=== PATIENT | male | born 1960 | race Caucasian/White ===

== ENCOUNTER 2020-07-02 02:01 | Outpatient (CLI) | payer BC, SELFPAY ==
[2020-07-02 16:34] LABS: SARS-CoV-2 RNA PCR Positive
== END 2020-07-02 02:02 | disposition home or self-care (01) ==
LOC: ANHCOVIDDT 02:01
PROVIDERS: PCP Internal Medicine; Visit Provider Internal Medicine Gastroenterology
DX: U07.1 COVID-19 (principal)
CPT/HCPCS: 87635; C9803; U0003

== ENCOUNTER 2021-06-18 07:37 | Outpatient (CLI) | payer BC, SELFPAY ==
--- NOTE | ~2021-06-18 | CT_ITS ---
EXAMINATION: CT abdomen pelvis wo con DATE: 06/18/2021 08:04 INDICATION: Unspecified abdominal hernia without obstruction TECHNIQUE: Computed tomography (CT) of the abdomen and pelvis was performed without intravenous contr ast. The dose-length product (DLP) was 1499.67 mGy-cm. Automated exposure control and iterative recon struction technique were employed. COMPARISON: 07/30/2016 FINDINGS: The lung bases are clear. The heart size is normal. The liver, spleen, pancreas, gallbladde r, and adrenal glands are normal. The kidneys are unremarkable. There is a midline epigastric hernia which now contains a short segment of the nonobstructed transverse colon. There are additional smalle r fat-containing supraumbilical hernias which are not significantly changed in size. No pathologicall y enlarged abdominal or pelvic lymph nodes are identified. There is no free intraperitoneal gas or ev idence of bowel obstruction. Colonic diverticulosis is present without evidence of diverticulitis. Th ere is moderate lumbar spondylosis. IMPRESSION: 1. Midline epigastric hernia containing a short segment of the nonobstructed transverse colon. Multip le additional smaller supraumbilical ventral hernias containing fat. Reviewed, dictated and finalized at location B. IMPRESSION: 1. Midline epigastric hernia containing a short segment of the nonobstructed tr ansverse colon. Multiple additional smaller supraumbilical ventral hernias cont aining fat.
== END 2021-06-18 07:38 | disposition home or self-care (01) ==
PROVIDERS: PCP Internal Medicine; Visit Provider Internal Medicine
DX: K46.9 Unspecified abdominal hernia without obstruction or gangrene (principal); K43.9 Ventral hernia without obstruction or gangrene; M47.816 Spondylosis without myelopathy or radiculopathy, lumbar region; K57.30 Diverticulosis of large intestine without perforation or abscess without bleeding
CPT/HCPCS: 74176

== ENCOUNTER 2021-06-26 01:45 | Day surgery (SDC) | payer BC, SELFPAY ==
[2021-06-13 11:05] VITALS: BMI 38.1
--- NOTE | 2021-06-25 12:07 | WPDANESEPPF ---
Anes - Initial Pre Proc Eval Procedure: Operation Date: 06/26/21 07:30 Proposed Procedures p Screening Colonoscopy - Fernando Shoemaker MD Date/Time: 06/25/21 12:07 Surgeon: Fernando Shoemaker MD Pre Op Diagnosis: family hx of colon ca Patient Data Age: 61 Gender: M Height: 1.8 m Weight: 124 kg Allergies Allergy/AdvReac Type Severity Reaction Status Date / Time morphine Allergy Severe Hallucinati Verified 06/26/21 06:16 ng Home Medications Medication Instructions Recorded Confirmed Type phentermine 30 mg capsule 30 mg PO QAM #30 cap 05/21/21 06/26/21 Rx telmisartan 80 1 tablet PO DAILY #90 tablet 06/04/21 06/26/21 Rx mg-hydrochlorothiazide 12.5 mg tablet Patient hx anesthesia problems: none Family hx anesthesia problems: none PMFSH Past Medical History Medical History Abdominal hernia without obstruction or gangrene Essential (primary) hypertension Family history of colon cancer Gangrene Lower extremity surgery planned Morbid obesity with BMI of 40.0-44.9, adult Family History Family History Father Family history of cardiovascular disease Carcinoma of colon Diabetes mellitus Hypertension Mother Cancer Sibling Hypertension Social History Social History Smoking status: Never smoker Alcohol intake: current Drinks per week: 2 Substance use: never Substance use type: does not use Living arrangements: with family Spiritual care concerns: No Anes - Eval Final PreProcedure Day of Procedure 06/25/21 12:07 Patient weight: obese Heart: regular rate and rhythm Lungs: clear to auscultation and normal air movement Airway: Mallampati scale class III Neurological: alert and oriented Last oral intake: >/= 8 hours ASA classification: III Emergent: no Anesthetic plan: proceed Anesthesia type and monitoring: general GIVS and standard monitoring Informed Consent: The patient's anesthetic plan and its attendant risks and benefits were discussed with the patient/family/POA. Questions were solicited and answers provided to the satisfaction of the patient/family/POA.
--- NOTE | 2021-06-25 15:38 | PM.HPGS ---
History of Present Illness History of Present Illness Consent: Risks, benefits, and alternatives have been discussed and questions answered. Patient agrees to proceed with procedure. Chief complaint: family hx of colon ca Narrative: Pierre Fiore is a 61 year old male referred for colon cancer screening. He has a family history of colon cancer Review of Systems Review of Systems: All systems reviewed & are unremarkable except as noted in HPI and below PMFSH Past Medical History Medical History Abdominal hernia without obstruction or gangrene Essential (primary) hypertension Family history of colon cancer Gangrene Lower extremity surgery planned Morbid obesity with BMI of 40.0-44.9, adult Family History Family History Father Family history of cardiovascular disease Carcinoma of colon Diabetes mellitus Hypertension Mother Cancer Sibling Hypertension Social History Social History Smoking status: Never smoker Alcohol intake: current Drinks per week: 2 Substance use: never Substance use type: does not use Living arrangements: with family Spiritual care concerns: No Meds Home Medications and Allergies Home Medications Medication Instructions Recorded Confirmed Type phentermine 30 mg capsule 30 mg PO QAM #30 cap 05/21/21 06/26/21 Rx telmisartan 80 1 tablet PO DAILY #90 tablet 06/04/21 06/26/21 Rx mg-hydrochlorothiazide 12.5 mg tablet Allergies Allergy/AdvReac Type Severity Reaction Status Date / Time morphine Allergy Severe Hallucinati Verified 06/26/21 06:16 ng Exam Resp: Auscultation: clear to auscultation bilaterally Cardio: Rate: regular rate Rhythm: regular rhythm GI: GI Palp: Yes Soft to palpation and No Tenderness to palpation present (GI) Assessment and Plan Assessment and plan (1) Colon cancer screening: Code(s): Z12.11 - Encounter for screening for malignant neoplasm of colon Status: Acute Assessment and Plan: Colonoscopy with possible biopsy or polypectomy or cautery or injection of substances.
[2021-06-26 06:18] VITALS: BP 137/87; PULSE 69; RESP 20; TEMP 35.9; O2SAT 95
[2021-06-26] MEDS: LACTATED RINGERS 1,000 ML 150 ML IV CONT (06:21)
[2021-06-26 07:23] VITALS: BP 124/70; PULSE 69; RESP 17; O2SAT 97
[2021-06-26 07:33] VITALS: BP 107/73; PULSE 75; RESP 25; O2SAT 97
[2021-06-26 07:43] VITALS: BP 135/88; PULSE 68; RESP 16; O2SAT 96
== END 2021-06-26 07:52 | disposition home or self-care (01) ==
PROVIDERS: PCP Internal Medicine; Visit Provider Internal Medicine Gastroenterology
PROC: 0DJD8ZZ Inspection of Lower Intestinal Tract, Via Natural or Artificial Opening Endoscopic (ICD-10-PCS; CPT 45378; principal; 2021-06-26 07:30)
DX: Z12.11 Encounter for screening for malignant neoplasm of colon (principal); K57.30 Diverticulosis of large intestine without perforation or abscess without bleeding; K43.6 Other and unspecified ventral hernia with obstruction, without gangrene; Z80.0 Family history of malignant neoplasm of digestive organs; I10 Essential (primary) hypertension; E66.9 Obesity, unspecified; Z68.38 Body mass index [BMI] 38.0-38.9, adult
CPT/HCPCS: 45378; J2704; J7120

== ENCOUNTER 2022-02-03 07:06 | Observation (INO) | payer BC, SELFPAY ==
[2022-02-03] VITALS (18 sets, daily range): BP systolic 127–145; BP diastolic 89–120; PULSE 68–126; RESP 18–27; TEMP 36.1–36.7; O2SAT 93–99; BMI 39.2
--- NOTE | ~2022-02-03 | XR_ITS ---
EXAMINATION: XR chest 2V DATE: 02/03/2022 08:52 INDICATION: Shortness of breath. TECHNIQUE: Frontal and lateral views of the chest were obtained. COMPARISON: Chest single view 07/09/2019, chest CT 02/03/2022 FINDINGS: There are small pleural effusions. Anusha B-lines are noted, consistent with mild pulmonary edema. No pneumothorax. The heart size is normal. There is an old healed left rib fracture. IMPRESSION: 1. Mild pulmonary edema. 2. Small pleural effusions. Reviewed, dictated and finalized at location A.
--- NOTE | ~2022-02-03 | CT_ITS ---
EXAMINATION: CTA chest PE protocol DATE: 02/03/2022 08:45 INDICATION: Shortness of breath, cough. New atrial fibrillation. TECHNIQUE: Computed tomography angiography (CTA) of the chest was performed with 100 mL Omnipaque-350 intravenous contrast timed to evaluate the pulmonary arteries. Coronal maximum intensity projection 3D-reconstructions were created by the technologist. Automated exposure control and iterative reconst ruction technique were employed. Exam dose: 1045.93 mGy-cm total exam DLP. COMPARISON: 07/09/2019 portable AP chest 2 view chest is not available at this time. FINDINGS: There is diagnostic contrast enhancement of the pulmonary arteries and no evidence of pulmo nary embolism. Cardiomegaly. No pericardial effusion. There is mild prominence of the fissure suggesting subpleural edema. There is prominence of some pulm onary interlobular septae peripherally mild bilateral pulmonary infiltrates suggesting pulmonary kul[place] a. Nonspecific mild aortopulmonary window and bilateral hilar and subcarinal lymph node prominence. Small bilateral pleural effusions. Normal morphology of the adrenal glands. Included upper abdominal structures are unremarkable. Mild bilateral gynecomastia. Very small sliding hiatal hernia Prominent degenerative disc disease in the lower cervical and upper thoracic spine. No suspicious ost eolytic or osteoblastic lesions. IMPRESSION: No evidence of pulmonary embolus Cardiomegaly and congestive changes, small pleural effusions, suggesting congestive heart failure, pu lmonary edema Mild mediastinal and hilar lymph node prominence, possibly reactive Reviewed, dictated and finalized at Location A. Reviewed, dictated and finalized at location A. IMPRESSION: No evidence of pulmonary embolus Cardiomegaly and congestive changes, small pleural effusions, suggesting conges tive heart failure, pulmonary edema Mild mediastinal and hilar lymph node prominence, possibly reactive
--- NOTE | 2022-02-03 07:22 | ECG_ITS ---
Measurements Intervals [place] Rate: 90 P: [place]: 0 QRS: 9 QRSD: 105 T: 17 QT: 381 QTc: 468 Interpretive Statements ATRIAL FIBRILLATION NONSPECIFIC T-WAVE ABNORMALITY ABNORMAL RHYTHM ECG NO PREVIOUS ECG AVAILABLE FOR COMPARISON Electronically Signed On 02-03-2022 16:19:39 CDT by Derek Green M.D.
[2022-02-03 07:36] LABS: Basophils Absolute Auto 0.1 K/mm3 (0.0-0.1); Basophils Percent Auto 0.8 % (0.2-1.2); Eosinophils Absolute Auto 0.4 K/mm3 (0-0.3); Eosinophils Percent Auto 3.5 % (0-4.4); Hematocrit 39.9 % (42.0-52.0); Hemoglobin 13.2 g/dL (14.0-18.0); Immature Granulocyte Absolute 0.04 K/mm3 (0.00-0.031); Immature Granulocyte Percent A 0.4 % (0-0.5); Lymphocytes Absolute Auto 1.52 K/mm3 (0.9-3.2); Lymphocytes Percent Auto 15.3 % (18.3-44.2); Mean Corpuscular HGB Conc 33.1 g/dl (32-36); Mean Corpuscular Volume 93.7 fl (80-100); Mean Platelet Volume 9.8 fl (7.4-10.4); Monocytes Absolute Auto 0.9 K/mm3 (0.1-0.6); Monocytes Percent Auto 8.8 % (2.6-8.5); Neutrophils Absolute Auto 7.1 K/mm3 (1.3-6.7); Neutrophils Percent Auto 71.2 % (45.5-73.1); Platelet Count Result 220 k/mm3 (150-375); Red Blood Count 4.26 M/mm3 (4.6-6.20); Red Cell Distribution Width 13.2 % (11.5-14.5); White Blood Count 9.9 K/mm3 (4.5-10.0)
--- NOTE | 2022-02-03 07:38 | ED.SOB ---
HPI - SOB/Dyspnea General Chief Complaint: Shortness of Breath/Dyspnea Stated Complaint: shortness of breath Time Seen by Provider: 02/03/22 07:37 Source: patient Mode of arrival: ambulatory Limitations: no limitations History of Present Illness HPI Narrative: The patient is a 61-year-old male with a history of hypertension, atrial flutter, hyperlipidemia, presenting to the emergency department for evaluation of shortness of breath. Patient states that he has felt short of breath over the past 72 hours. Patient states he has had some midsternal chest pain that is worse with deep inspiration. Patient denies leg swelling or calf pain. Denies any unilateral redness or swelling. He denies pleuritic pain. Patient denies wheezing or history of smoking. Chest pain does not radiate to the back or shoulders, jaw, neck. He denies ripping or tearing sensation to the flanks. Patient states that he has been compliant with his medications since discharge from the hospital and has a sleep study scheduled at this facility for February 12 due to a presumed diagnosis of obstructive sleep apnea. Patient states his dyspnea is worse with exertion. He reports cough with small amount of sputum production, denies hemoptysis. Per chart review with his primary care provider, pt was in [facility] from 11/18/2021- 11/21/2021. He was discharged with diagnosis of Irregular heart beat. He was referred to [facility] and has an upcoming appointment 01/07/2022. Patient has been on a daily aspirin. Related Data Home Medications Medication Instructions Recorded Confirmed aspirin 81 mg tablet,delayed 81 mg PO DAILY 12/23/21 12/23/21 release apixaban 5 mg PO BID 02/03/22 cetirizine 10 mg PO DAILY PRN 02/03/22 diphenhydramine HCl [Benadryl] 25 mg PO TID PRN 02/03/22 epinephrine 0.3 mg IM ONCE 02/03/22 famotidine 20 mg PO BID 02/03/22 metoprolol tartrate 100 mg PO DAILY 02/03/22 Allergies Allergy/AdvReac Type Severity Reaction Status Date / Time morphine Allergy Severe Hallucinati Verified 02/03/22 07:17 ng Review of Systems Review of Systems: CONSTITUTIONAL: Denies fever, chills, or sweats. EYES: Denies visual changes, redness, or discharge. ENT: Denies rhinorrhea, congestion, sore throat, or otalgia. CARDIOVASCULAR: Denies chest pain, palpitations, or edema. RESPIRATORY: Reports cough and shortness of breath GASTROINTESTINAL: Denies abdominal pain, nausea, vomiting, or diarrhea. GENITOURINARY: Denies dysuria or hematuria. SKIN: Denies rash or itching. MUSCULOSKELETAL: Denies back pain, joint pain, or myalgia. NEUROLOGIC: Denies headache, numbness, or weakness. [facility] Past Medical History Medical History Abdominal hernia without obstruction or gangrene Atrial flutter Essential (primary) hypertension Family history of colon cancer Gangrene Lower extremity surgery planned Morbid obesity with BMI of 40.0-44.9, adult Family History Family History Father Family history of cardiovascular disease Carcinoma of colon Diabetes mellitus Hypertension Mother Cancer Sibling Hypertension Social History Social History Smoking status: Never smoker Alcohol intake: current Drinks per week: 2 Substance use: never Substance use type: does not use Spiritual care concerns: No Exam Narrative: GENERAL: Awake, alert, conversant HEAD: Normocephalic, atraumatic. EYES: PERRLA and EOMI. ENT: Nares clear, no rhinorrhea or epistaxis. Mucous membranes moist. NECK: Supple. CHEST: Mild tachypnea, faint crackles bilaterally lower lobes, no expiratory wheezing, no severe respiratory distress HEART: Tachycardic rate, irregular rhythm, rate controlled ABDOMEN:Non distended, non tender EXTREMITIES: Normal range of motion. No edema. SKIN: Warm, dry, no rash. NEURO:No focal deficit
[2022-02-03 07:46] LABS: Alanine Aminotransferase 38 U/L (4-50); Albumin Level 3.9 g/dL (3.5-5.1); Alkaline Phosphatase 79 U/L (38-126); Anion Gap 8 mmol/L (8-16); Aspartate Amino Transferase 37 U/L (17-59); Bilirubin,Total 0.7 mg/dL (0.2-1.3); Blood Urea Nitrogen 25 mg/dL (9-20); Calcium 8.4 mg/dL (8.4-10.2); Carbon Dioxide 26 mmol/L (22-30); Chloride 102 mmol/L (98-107); Estimated CRCL calculation 80 ml/min; Estimated Glomerular Filt Rate > 60; Glucose 130 mg/dL (65-110); Potassium 4.6 mmol/L (3.4-5.0); Sodium 136 mmol/L (137-145)
[2022-02-03 07:52] LABS: Alveolar/Arterial O2 Gradient 26.9 mmHg; Base Excess ABG 1.4 mEq/l (+/-2.0); Carboxyhemoglobin 0.3 % THb (0-2.0); Fractional Inspired Oxygen 21 %; HCO3 ABG 27.2 mEq/l (22.0-26.0); Methemoglobin ABG 0.1 %THb (0-1.5); Oxygen Saturation ABG 92.5 % (95.0-100.0); Oxyhemoglobin 90.8 % THb (90.0-100.0); PCO2 ABG 47.4 mmHg (35.0-45.0); PO2 ABG 66.1 mmHg (80.0-100.0); PO2 FiO2 Ratio Arterial Blood 3.15 %; Reduced Hemoglobin 8.8 %THb (0-5.0); Total Hemoglobin 13.3 g/dL (12.0-18.0); pH ABG 7.376 (7.350-7.450)
[2022-02-03 07:53] LABS: Device ROOM AIR; Modified Allen's Test Pass; Site Drawn RIGHT RADIAL
[2022-02-03 08:35] LABS: INR 1.2; Partial Thromboplastin Time 29.4 SECONDS (22.3-36.8); Prothrombin Time 14.3 Seconds (11.1-14.7)
[2022-02-03 08:39] LABS: Lactic Acid Reflex 0.7 mmol/L (0.7-2.1)
[2022-02-03 08:49] LABS: NT Pro B Type Natriuretic Pept 888 pg/mL (5-100); Troponin I < 0.012 ng/mL (0.000-0.034)
[2022-02-03] MEDS: METOPROLOL SUCCINATE EXT REL 100 MG TABCR PO (09:40)
[2022-02-03] MEDS: FUROSEMIDE INJ 40 MG/4 ML VIAL 20 MG IV PUSH (09:40)
--- NOTE | 2022-02-03 11:47 | ADMGEN ---
This patient, Pierre Fiore, was admitted to IMU Room 210-01 at 1146. Patient/family oriented to hospital policies and general routines including ID bracelet, bed and alarms, visiting hours, pain management, procedures, bathroom and other care routines, personal items, smoking policy, room service/diet, and visiting hours. Information on how to activate the Rapid Response Team has been discussed. Patient/Family are encouraged to report perceived risks to care and to ask questions if they do not understand what they are told or what they should do.
[2022-02-03 12:55] LABS: Troponin I < 0.012 ng/mL (0.000-0.034)
--- NOTE | 2022-02-03 13:54 | PM.CNCAR ---
Assessment and Plan Additional Plan This is a 61-year-old man who appears to have typical obesity hypoventilation syndrome with AFib because of this. He had an attempt at restoring sinus rhythm recently at [facility] which was successful but has not maintained as he is back in atrial fibrillation. His heart rate is well controlled with the metoprolol and he is systemically anticoagulated with apixaban. The patient has been reporting and displaying symptoms of sleep apnea for 5 or 6 years but has yet to have his 1st sleep study done which is scheduled for a couple of weeks from now. At this time I would recommend starting some furosemide and I will transition his antiarrhythmic agent to sotalol from metoprolol. Apixaban of course should be continued for some reason and has not been ordered as of now. I believe we should consider repeating an electrical cardioversion after such time that the patient has his sleep apnea effectively treated I do not believe that would be very beneficial to repeatedly cardiovert him until the sleep apnea is treated. It is always possible that the sotalol will medically restore sinus rhythm although I frankly doubt that will happen. We will follow him with you while he is in the hospital and after discharge. Hopefully after his sleep apnea is effectively treated we can more effectively treat his atrial fibrillation. Derek Green MD [facility] History of Present Illness History of Present Illness Consult date/time: 02/03/22 13:54 Consult reason: atrial fibrillation and shortness of breath Reason For Visit: Acute congestive heart failure exacerbation/dyspne Narrative: This is a 61-year-old man I am seeing at the request of the hospitalist today because of atrial fibrillation and dyspnea with which he was admitted to the hospital this morning. According to the patient and the records he was found to have atrial fibrillation when he was presenting to the hospital at [facility] last month for hernia surgery. He was found to be in atrial fib with a RVR it looks like the hernia surgery was canceled and he was admitted for couple of days. He was placed on metoprolol for rate control and apixaban for systemic anticoagulation. The with patient was otherwise unaware of his atrial fib in apparently was of unknown chronicity. He is also a obese man with BMI of 39 who appears to have obvious observational findings sleep apnea according to his and family. His primary care physician has arranged for a outpatient sleep study to be done which is scheduled for the 1st week of February. Obviously he does not have his apnea treated yet since the sleep study has not occurred. While he was in the hospital at [facility] an attempt at rhythm control was made. He was sedated and underwent a MARYLU cardioversion. The esophageal echo demonstrated mild LV dysfunction with an ejection fraction of 45-50% and no significant valvular disease. He was electrically converted into sinus rhythm and discharged. He presents to this hospital with a history of worsening shortness of breath particularly when he lays down at night he was felt to have some congestive heart failure on evaluation in the emergency room. He is back in atrial fibrillation with heart rate in the 90s. He has never had coronary artery disease previous myocardial infarction he has no history of palpitations or syncope. Review of Systems Constitutional: Constitutional: Reports lethargy Eyes: Eyes: Reports no additional eye complaints ENT: Reports system reviewed and no additional complaints, except as documented Cardiovascular: Cardiovascular: Reports as per HPI Respiratory: Respiratory: Reports dyspnea on exertion Comments: Nocturnal dyspnea Gastrointestinal: Gastrointestinal: Reports no additional gastrointestinal complaints Musculoskeletal: Musculoskeletal: Reports no additional musculoskeletal complaints Integumentary/Breasts: Skin/Breast: Reports system reviewed and no additional
[2022-02-03 16:10] LABS: Troponin I < 0.012 ng/mL (0.000-0.034)
--- NOTE | 2022-02-03 16:44 | PM.IMHP ---
H&P: HPI History of Present Illness Date/Time: Patient was placed observation status for expected length of stay less than 23 hours for management, will plan to re-evaluate tomorrow for improvement. 02/03/22 16:44 Chief Complaint: Shortness of breath Narrative: Mr. Fiore is a 61-year-old gentleman who presented to the emergency room with complaints of increasing shortness breath over last 2-3 days. Patient states he had been recently seen at [facility] for a hernia repair a preoperatively was found to have a heart rate in the 160s. Patient states that he never felt any different he did not have palpitations. Patient denies any chest pain. Patient states that he has only had shortness of breath over the last 2-3 days. Patient states he was to follow up with Cardiology on February 27, but his shortness of breath became too intense and was able to do so. Patient states that he has also had a sleep study and been told he has sleep apnea and he was to have a repeat sleep study done on February 12 so he can be set up with a CPAP. Upon evaluation in emergency room was noted to have an elevated BNP at 888 and CTA showed no evidence of pulmonary embolism with cardiomegaly and congestive changes, small pleural effusions, suggesting congestive heart failure and pulmonary edema. Patient states he does have a known history of hypertension, dyslipidemia, and sleep apnea. As mentioned above patient states he is to have a follow-up sleep study on 02/12/2022 so he can be fitted for his CPAP. Patient states he has noticed some mild swelling to his lower extremities, but his right lower extremity always swells more than the left because he has had infection in the right leg and has always had more swelling. Patient denies any recent weight gain. Review of Systems Review of Systems: A 12 point review of systems was completed patient all pertinent positive and negative per HPI the remainder are unremarkable. [facility] Past Medical History Medical History (Updated 02/03/22 @ 16:50 by Nancy Oneill APRN) Abdominal hernia without obstruction or gangrene Atrial flutter Essential (primary) hypertension Family history of colon cancer Gangrene Lower extremity surgery planned Morbid obesity with BMI of 40.0-44.9, adult Obstructive sleep apnea Family History Family History Father Family history of cardiovascular disease Carcinoma of colon Diabetes mellitus Hypertension Mother Cancer Sibling Hypertension Social History Social History Smoking status: Never smoker Alcohol intake: current Drinks per week: 2 Substance use: never Substance use type: does not use Spiritual care concerns: No Meds Home Medications and Allergies Home Medications Medication Instructions Recorded Confirmed Type aspirin 81 mg tablet,delayed 81 mg PO DAILY 12/23/21 02/03/22 History release losartan 25 mg tablet 25 mg PO DAILY #90 tablet 01/14/22 02/03/22 Rx omega-3 acid ethyl esters 1 gram 2 cap PO DAILY #180 cap 01/14/22 02/03/22 Rx capsule rosuvastatin 20 mg tablet 20 mg PO DAILY #90 tablet 01/14/22 02/03/22 Rx apixaban 5 mg PO BID 02/03/22 02/03/22 History cetirizine 10 mg PO DAILY PRN 02/03/22 02/03/22 History diphenhydramine HCl [Benadryl] 25 mg PO TID PRN 02/03/22 02/03/22 History epinephrine 0.3 mg IM ONCE 02/03/22 02/03/22 History famotidine 20 mg PO BID 02/03/22 02/03/22 History metoprolol tartrate 100 mg PO DAILY 02/03/22 02/03/22 History Allergies Allergy/AdvReac Type Severity Reaction Status Date / Time morphine Allergy Severe Hallucinati Verified 02/03/22 07:17 ng Vital Signs Vital Signs - 24 hr 02/03/22 07:12 02/03/22 07:32 02/03/22 08:14 Temperature 36.4 C Pulse Rate 101 H 99 Respiratory Rate 22 H 27 H Blood Pressure 137/120 H Pulse Oximetry 96 97 97 02/03/22 09:40 02/03/22 10:12
[2022-02-03] MEDS: FAMOTIDINE 20 MG TABLET PO (17:45)
--- NOTE | 2022-02-03 19:06 | ECG_ITS ---
Measurements Intervals [place] Rate: 97 P: ID: 0 QRS: 21 QRSD: 100 T: 1 QT: 376 QTc: 479 Interpretive Statements ATRIAL FIBRILLATION NONSPECIFIC ST & T-WAVE ABNORMALITY ABNORMAL RHYTHM ECG COMPARED TO ECG 02/03/2022 07:19:32 NO SIGNIFICANT CHANGES Electronically Signed On 02-05-2022 13:20:45 CDT by Sabina Luis M.D.
[2022-02-03] MEDS: APIXABAN 5 MG TABLET PO (20:48)
[2022-02-03] MEDS: SOTALOL HCL 80 MG TABLET PO (20:48)
[2022-02-04] VITALS (18 sets, daily range): BP systolic 135–150; BP diastolic 76–97; PULSE 64–122; RESP 16–23; TEMP 36.2–36.8; O2SAT 90–98
[2022-02-04 05:12] LABS: Basophils Absolute Auto 0.1 K/mm3 (0.0-0.1); Eosinophils Absolute Auto 0.6 K/mm3 (0-0.3); Eosinophils Percent Auto 7.5 % (0-4.4); Hematocrit 40.4 % (42.0-52.0); Hemoglobin 12.5 g/dL (14.0-18.0); Immature Granulocyte Absolute 0.03 K/mm3 (0.00-0.031); Immature Granulocyte Percent A 0.4 % (0-0.5); Lymphocytes Absolute Auto 1.81 K/mm3 (0.9-3.2); Lymphocytes Percent Auto 22.9 % (18.3-44.2); Mean Corpuscular HGB Conc 30.9 g/dl (32-36); Mean Corpuscular Hemoglobin 30.6 pg (26-34); Mean Platelet Volume 9.9 fl (7.4-10.4); Monocytes Absolute Auto 0.9 K/mm3 (0.1-0.6); Monocytes Percent Auto 11.5 % (2.6-8.5); Neutrophils Absolute Auto 4.5 K/mm3 (1.3-6.7); Neutrophils Percent Auto 56.7 % (45.5-73.1); Platelet Count Result 188 k/mm3 (150-375); Red Blood Count 4.08 M/mm3 (4.6-6.20); Red Cell Distribution Width 13.2 % (11.5-14.5); White Blood Count 7.9 K/mm3 (4.5-10.0)
[2022-02-04 05:43] LABS: Anion Gap 6 mmol/L (8-16); Blood Urea Nitrogen 19 mg/dL (9-20); Carbon Dioxide 29 mmol/L (22-30); Chloride 102 mmol/L (98-107); Estimated CRCL calculation 81 ml/min; Estimated Glomerular Filt Rate > 60; Glucose 151 mg/dL (65-110); Sodium 137 mmol/L (137-145)
[2022-02-04 08:03] LABS: Magnesium 2.3 mg/dL (1.6-2.3)
[2022-02-04] MEDS: FAMOTIDINE 20 MG TABLET PO ×2 (08:06→17:15)
[2022-02-04] MEDS: FUROSEMIDE 40 MG TABLET PO (08:06)
[2022-02-04] MEDS: LOSARTAN POTASSIUM 25 MG TABLET PO (08:06)
[2022-02-04] MEDS: OMEGA 3 POLYUNSAT FATTY ACIDS 1 GM CAP 2 GM PO (08:06)
[2022-02-04] MEDS: ASPIRIN 81 MG ENTERIC TABLET PO (08:06)
[2022-02-04] MEDS: ROSUVASTATIN 10 MG TABLET 20 MG PO (08:06)
[2022-02-04] MEDS: APIXABAN 5 MG TABLET PO ×2 (08:07→21:25)
--- NOTE | 2022-02-04 11:16 | PM.IMPN ---
Progress Note: A&P Assessment and Plan (1) Congestive heart failure: Code(s): I50.9 - Heart failure, unspecified Status: Acute Assessment and Plan: Patient presents to the emergency room with complaints of shortness of breath which began about 3 days prior to admission. He was also having midsternal chest pain worse with deep inspiration. He has no known history of coronary disease. He was noted to be back in atrial fibrillation but heart rate was controlled. He does have known LV dysfunction with an EF of 45-50% by recent echocardiogram at another facility. ABG showed mild hypoxia. Chest x-ray showed mild pulmonary edema. He underwent a CTA of the chest which was negative for PE but did show cardiomegaly with congestive changes. He also had mild adenopathy felt to be reactive. BNP was 880. He received 1 dose of Lasix 20 mg IV once. He was placed on BiPAP for his presumed GIBRAN. Patient had excellent diuresis. He was started on oral Lasix this morning at 40 mg. Symptoms are much improved. Suspect patient has CHF either from the fact that he is now back in AFib and requires the atrial kick and/or related to untreated sleep apnea. Troponins are negative x3. EKG does show nonspecific T-wave changes. Would consider underlying ischemic disease contributing to the above changes and Echo findings. Cardiology has been consulted. Continue his oral Lasix. Continue aspirin. Appreciate Cardiology input. (2) Chest pain: Code(s): R07.9 - Chest pain, unspecified Status: Acute Assessment and Plan: As above. Chest pain has resolved (3) Atrial flutter: Qualifiers: Atrial flutter type: unspecified Qualified Code(s): I48.92 - Unspecified atrial flutter Code(s): I48.92 - Unspecified atrial flutter Status: Acute Assessment and Plan: Patient has a history of atrial flutter. He was cardioverted successfully at the prior hospital. Unclear on when he reverted back to atrial fibrillation prior to becoming symptomatic since patient has no sense of when he is in AFib/Flutter. TSH is normal. Cardiology changed patient's metoprolol to sotalol yesterday. This morning, patient developed a 4.9 second cardiac pause. For this reason, his sotalol was held. We continue the Eliquis for stroke prophylaxis. Records from [place] reviewed. Cardiology feels patient should have his GIBRAN treated first before trying cardioversion again. (4) Obstructive sleep apnea: Code(s): G47.33 - Obstructive sleep apnea (adult) (pediatric) Status: Acute Assessment and Plan: Patient states he did have a home sleep study but results not available. Patient has a follow-up sleep study on February 12 for PAP titration. Will check apnea link tonight to see if we can get home O2 for him at home which might placate him until he gets his NIV. (5) Sinus pause: Code(s): I45.5 - Other specified heart block Status: Acute Assessment and Plan: Patient had multiple sinus pauses with the longest being 4.9 seconds. Would seem unlikely 1 dose of sotalol to cause this. Sotalol on hold at this time. Electrolytes are within normal limits. TSH is normal. Cardiology following. Appreciate their input. Continue to monitor on telemetry. Subjective Date/time seen: 02/04/22 11:16 Interval history: 61yo male with AFib here for SOB. Patient denies feeling SOB today. Has chest heaviness on admission but this has resolved. no n/v. no calf pain. No pedal edema. He was seen in Nov for elective abd hernia surgery when he was discovered to have AFib. He is unaware of when he is in AFib. He remained hospitalized and had CV and also an episode of loss of heart rate prior to a procedure. he does not have much memory of the event. He is not sure if he had CPR. He also has presumed GIBRAN and has been trying to get it for a sleep study since mid-December. He has an appointment for a sleep study in early M
--- NOTE | 2022-02-04 12:42 | PM.PNCARD ---
Progress Note: A&P Assessment and Plan (1) Atrial fibrillation: Code(s): I48.91 - Unspecified atrial fibrillation Status: Acute Assessment and Plan: Recent diagnosis of atrial fibrillation which was recognized at [facility] when patient presented for an outpatient procedure. A MARYLU/CV during that hospitalization restored sinus rhythm but unfortunately he presented to [facility] yesterday and was found to be in Afib with RVR. He was started on sotalol as an attempt to restore sinus rhythm but because of some pauses noted on telemetry the sotalol has been held. Currently still in atrial fibrillation with a rate generally 110-120. He is currently asymptomatic Discontinue sotalol Restart metoprolol tartrate 75mg b.i.d. Continue anticoagulation with Apixaban 5mg b.i.d. Continue telemetry Untreated GIBRAN - outpatient sleep study to be arranged (2) Congestive heart failure: Code(s): I50.9 - Heart failure, unspecified Status: Acute Assessment and Plan: Probably secondary to Afib with RVR. He is being diuresed and is improving. Continue furosemide 40mg p.o. daily for now Likely will not need ongoing diuresis with control of his heart rate (3) Obstructive sleep apnea: Code(s): G47.33 - Obstructive sleep apnea (adult) (pediatric) Status: Acute Assessment and Plan: He will need an outpatient sleep study. Subjective Date/time seen: 02/04/22 12:42 Cardiology follow up for atrial fibrillation, CHF I feel great. He slept well last night using CPAP and states that was the first time he's slept well in about a week because he typically wakes up gasping for air. He denies any shortness of breath or palpitations. Making good urine and has no swelling today. Review of Systems Constitutional: Constitutional: Reports lethargy Eyes: Eyes: Reports no additional eye complaints ENT: Reports system reviewed and no additional complaints, except as documented Cardiovascular: Cardiovascular: Reports as per HPI and Reports dyspnea on exertion Respiratory: Respiratory: Reports dyspnea on exertion Gastrointestinal: Gastrointestinal: Reports no additional gastrointestinal complaints Musculoskeletal: Musculoskeletal: Reports no additional musculoskeletal complaints Integumentary/Breasts: Skin/Breast: Reports system reviewed and no additional complaints, except as docu Endocrine: Endocrine: Reports no additional endocrine complaints Hematologic/Lymphatic: Hematologic/Lymphatic: Reports no additional hematologic/lymphatic complaints Allergic/Immunologic: Allergic/Immunologic: Reports no additional allergic/immunologic complaints Exam Const: General: comfortable and no acute distress Other: Pleasant obese gentleman sitting on the side of the bed. Alert and oriented. HENMT: Mouth: Yes moist mucous membranes Eyes: Sclera: sclerae normal Pupils: Equal, round and reactive pupils present Neck: Neck: supple and no JVD Resp: Effort & Inspection: normal respiratory effort Auscultation: clear to auscultation bilaterally Cardio: Rhythm: abnormal rhythm irregularly irregular GI: Auscultation: normal bowel sounds Skin: General skin exam: normal color Neuro: Cranial nerves: Yes Equal, round and reactive pupils present Cognition (Neuro): normal cognition Extrem: General: normal to inspection and no pedal edema Objective Data Vital Signs Vital Signs: Vital Signs - 24 hr 02/03/22 14:00 02/03/22 14:02 02/03/22 16:00 Temperature 36.1 C L Pulse Rate 81 81 83 Respiratory Rate 26 H 18 Blood Pressure 127/96 H Pulse Oximetry 97 98 02/03/22 18:00 02/03/22 20:00 02/03/22 20:48 Temperature 36.7 C Pulse Rate 113 H 113 H 126 H Respiratory Rate 20 Blood Pressure 145/98 H Pulse Oximetry 93 02/03/22 21:29 02/03/22 22:00 02/03/22 23:16 Temperature 36.6 C Pulse Rate 97 103 H Respiratory Rate 22 H 18 Blood Pressure 137/89 Pulse Oximetry 97 99 02/04
[2022-02-04] MEDS: METOPROLOL TARTRATE 50 MG TAB PO (21:25)
[2022-02-05] VITALS (11 sets, daily range): BP systolic 141–161; BP diastolic 81–111; PULSE 56–109; RESP 15–22; TEMP 36.3–36.7; O2SAT 93–98
[2022-02-05] MEDS: diphenhydrAMINE HCl CAP 25 MG CAPSULE PO (00:37)
[2022-02-05] MEDS: ZOLPIDEM TARTRATE (*CRX) 5 MG TABLET 10 MG PO (03:18)
[2022-02-05 08:12] LABS: Anion Gap 1 mmol/L (8-16); Blood Urea Nitrogen 19 mg/dL (9-20); Calcium 8.6 mg/dL (8.4-10.2); Carbon Dioxide 37 mmol/L (22-30); Chloride 99 mmol/L (98-107); Estimated CRCL calculation 81 ml/min; Estimated Glomerular Filt Rate > 60; Glucose 118 mg/dL (65-110); Potassium 4.4 mmol/L (3.4-5.0); Sodium 137 mmol/L (137-145)
[2022-02-05] MEDS: ASPIRIN 81 MG ENTERIC TABLET PO (08:16)
[2022-02-05] MEDS: LOSARTAN POTASSIUM 25 MG TABLET PO (08:16)
[2022-02-05] MEDS: APIXABAN 5 MG TABLET PO (08:16)
[2022-02-05] MEDS: ROSUVASTATIN 10 MG TABLET 20 MG PO (08:16)
[2022-02-05] MEDS: FUROSEMIDE 40 MG TABLET PO (08:16)
[2022-02-05] MEDS: OMEGA 3 POLYUNSAT FATTY ACIDS 1 GM CAP 2 GM PO (08:16)
[2022-02-05] MEDS: METOPROLOL TARTRATE 50 MG TAB PO (08:16)
[2022-02-05] MEDS: FAMOTIDINE 20 MG TABLET PO (08:16)
--- NOTE | 2022-02-05 08:38 | ECG_ITS ---
Measurements Intervals [place] Rate: 67 P: 53 KS: 160 QRS: 3 QRSD: 107 T: 45 QT: 441 QTc: 467 Interpretive Statements SINUS RHYTHM LEFT ATRIAL ENLARGEMENT [-0.15mV P WAVE IN V1/V2] NONSPECIFIC T-WAVE ABNORMALITY COMPARED TO ECG 02/03/2022 22:47:21 SINUS RHYTHM NOW PRESENT Electronically Signed On 02-05-2022 13:46:39 CDT by Sabina Luis M.D.
--- NOTE | 2022-02-05 13:57 | PCRCNOTE ---
SETTING PT. UP WITH NOCTURNAL O2 WITH [facility].
--- NOTE | 2022-02-05 15:15 | PM.PNCARD ---
Progress Note: A&P Assessment and Plan (1) Atrial fibrillation: Code(s): I48.91 - Unspecified atrial fibrillation Status: Acute Assessment and Plan: Recent diagnosis of atrial fibrillation which was recognized at [place] when patient presented for an outpatient procedure. A MARYLU/CV during that hospitalization restored sinus rhythm but unfortunately he presented to [place] and was found to be in Afib with RVR. He was started on sotalol as an attempt to restore sinus rhythm but because of some pauses noted on telemetry the sotalol has been held. Currently still in atrial fibrillation with a rate generally 110-120. He is currently asymptomatic Discontinued sotalol Restarted metoprolol tartrate 50 mg b.i.d. (rather than 75 mg bid, due to mild bradycardia) Continue anticoagulation with Apixaban 5mg b.i.d. Untreated GIBRAN - outpatient sleep study to be arranged. Likely tx will help control PAF: weight loss will help as well As far as I know pt was started on Eliquis for his PAF. CHADS2 VASC score 2 (CHF, HTN). Discussed the use of warfarin instead but the patient is adverse to taking anticoagulants. He will finish up what he has got; says he has 2 or 3 more weeks of Eliquis left. We can discuss further in the office. Gave patient our phone number for office follow-up. (2) Congestive heart failure: Code(s): I50.9 - Heart failure, unspecified Status: Acute Assessment and Plan: Probably secondary to Afib with RVR. He is being diuresed and is improving. Continue furosemide 40mg p.o. daily for now Likely will not need ongoing diuresis with control of his heart rate (3) Obstructive sleep apnea: Code(s): G47.33 - Obstructive sleep apnea (adult) (pediatric) Status: Acute Assessment and Plan: He will need an outpatient sleep study. Subjective Date/time seen: 02/05/22 15:15 Interval history: Cardiology follow up for atrial fibrillation, CHF 02/04/2022: I feel great. He slept well last night using CPAP and states that was the first time he's slept well in about a week because he typically wakes up gasping for air. He denies any shortness of breath or palpitations. Making good urine and has no swelling today. Change sotalol back to metoprolol. Date of service 02/05/2022: Continue to have AFib heart rates in the 110 to 120s through the night per converted to sinus rhythm this morning. Heart rate sometimes is in the upper 40s but generally in the 60s, taking metoprolol 50 mg b.i.d.. Feels good and is eager to go home. Home O2 etc. being set up this evening. Patient would prefer to follow-up with our Cardiology group brother in good [place]. Has Eliquis is way too expensive. Says was only intended by [facility] for short per time to treat ?a blood clot. ? Review of Systems Constitutional: Constitutional: Reports no additional constitutional complaints Eyes: Eyes: Reports no additional eye complaints ENT: Reports system reviewed and no additional complaints, except as documented Cardiovascular: Cardiovascular: Denies chest pain and Denies palpitations Respiratory: Respiratory: Denies dyspnea Gastrointestinal: Gastrointestinal: Denies abdominal pain Musculoskeletal: Musculoskeletal: Reports no additional musculoskeletal complaints Neurologic: Reports system reviewed and no additional complaints, except as documented Psychiatric: Psychiatric: Reports no additional psychiatric complaints Exam Narrative: Up walking in the halls, nearby Const: General: comfortable and no acute distress HENMT: General nose exam: no epistaxis Eyes: EOM: EOMs intact bilaterally Neck: Neck: supple Resp: Effort & Inspection: normal respiratory effort Cardio: Rate: regular rate Rhythm: regular rhythm GI: Inspection: distended Other: Obese abdomen Skin: General skin exam: normal color and no rashes or lesions noted Neuro: Cognition (Neuro): normal cognition Speech:
--- NOTE | 2022-02-05 16:32 | PM.DS ---
DS: Admitting Diagnosis Discharge Date 02/05/22 Admitting Diagnosis Shortness of breath DS: Discharge Diagnosis Discharge Diagnosis (1) Congestive heart failure: Code(s): I50.9 - Heart failure, unspecified Status: Acute Assessment and Plan: Patient presented to the emergency room with complaints of shortness of breath which began about 3 days prior to admission. He was also having midsternal chest pain worse with deep inspiration. He has no known history of coronary disease. He was noted to be back in atrial fibrillation but heart rate was controlled. He does have known LV dysfunction with an EF of 45-50% by recent echocardiogram at another facility. ABG showed mild hypoxia. Chest x-ray showed mild pulmonary edema. He underwent a CTA of the chest which was negative for PE but did show cardiomegaly with congestive changes. He also had mild adenopathy felt to be reactive. BNP was 880. He received 1 dose of Lasix 20 mg IV. He was placed on BiPAP for his presumed GIBRAN. Patient had excellent diuresis. He was started on oral Lasix this morning at 40 mg. Symptoms are much improved. Suspect patient has CHF either from the fact that he is now back in AFib and requires the atrial kick and/or related to untreated sleep apnea. Troponins were negative x3. EKG does show nonspecific T-wave changes. Cardiology was consulted. Appreciate Cardiology input. (2) Chest pain: Code(s): R07.9 - Chest pain, unspecified Status: Acute Assessment and Plan: As above. Chest pain has resolved (3) Atrial flutter: Qualifiers: Atrial flutter type: unspecified Qualified Code(s): I48.92 - Unspecified atrial flutter Code(s): I48.92 - Unspecified atrial flutter Status: Acute Assessment and Plan: Patient has a history of atrial flutter. He was cardioverted successfully at the prior hospital. Unclear on when he reverted back to atrial fibrillation prior to becoming symptomatic since patient has no sense of when he is in AFib/Flutter. TSH was normal. Cardiology changed patient's metoprolol to sotalol but patient developed a 4.9 second cardiac pause. For this reason, his sotalol was held but felt unlikely one dose of Sotalol caused this. We continue the Eliquis for stroke prophylaxis. Records from [place] were reviewed. Cardiology feels patient should have his GIBRAN treated first before trying cardioversion again. Metoprolol resumed and he toelrated this well. He did convert to normal sinus rhythm on his own. (4) Obstructive sleep apnea: Code(s): G47.33 - Obstructive sleep apnea (adult) (pediatric) Status: Acute Assessment and Plan: Patient states he did have a home sleep study that was positive but results not available. Patient has a follow-up sleep study on February 12 for PAP titration. Apnea link performed but unreliable result for apnea since the evaluation was only 30 minutes but it did show he was having nocturnal hypoxia. We were able to get home O2 at night for him. (5) Sinus pause: Code(s): I45.5 - Other specified heart block Status: Acute Assessment and Plan: Patient had sinus pauses with the longest being 4.9 seconds. Would seem unlikely 1 dose of sotalol to cause this. Sotalol held. Electrolytes were within normal limits. TSH was normal. Cardiology following. Appreciate their input. No recurrence. DS: Summary Hospital Course Reason for hospitalization: 61yo male with AFib here for SOB. Please see H&P for details Hospital Course: Please see above for details of hospital course Status at Discharge Cognitive/behavioral status at discharge: Stable Time Spent with Patient Time attestation: Total time spent providing and/or coordinating discharge services: 35 minutes Time spent: Greater than 30 minutes Exam Narrative: AF 98.0 141/81 63 17 95% ra Gen - NARD Chest - few scattered rhonchi, nml RR CV - irregular
--- NOTE | 2022-02-12 09:47 | PC.NURSE ---
Blood cx are negative. Dr. Dank laureano.
== END 2022-02-05 17:13 | disposition home or self-care (01) ==
LOC: ANHED 09:41 → ANHIMU 12:27
PROVIDERS: Nurse Practitioner; Nurse Practitioner Adult Health; Admitting Provider Internal Medicine; Emergency Provider Emergency Medicine; PCP Internal Medicine; Visit Provider Internal Medicine
DX: J81.1 Chronic pulmonary edema (principal); R06.02 Shortness of breath; E78.5 Hyperlipidemia, unspecified; E66.01 Morbid (severe) obesity due to excess calories; Z68.39 Body mass index [BMI] 39.0-39.9, adult; G47.33 Obstructive sleep apnea (adult) (pediatric); I48.91 Unspecified atrial fibrillation; R07.9 Chest pain, unspecified; I50.9 Heart failure, unspecified; I45.5 Other specified heart block; I11.0 Hypertensive heart disease with heart failure
CPT/HCPCS: 36415; 36600; 71046; 71275; 80048; 80053; 82375; 82805; 83050; 83605; 83735; 83880; 84443; 84484; 85025; 85610; 85730; 87040; 93005; 94003; 94762; 96374; 99285; A9270; G0378; J1940; Q9967

== ENCOUNTER 2022-02-12 06:41 | Outpatient (CLI) | payer BC, SELFPAY ==
--- NOTE | 2022-02-18 20:02 | WPDSLEEPSTUD ---
Sleep Study Date of Study: 02/12/22 Ordering Provider: Eliseo Field DO Interpreting Physician: Amelie Leroy DO Sleep Study Type: Split Polysomnogram Height: 1.83 m Weight: 124.738 kg Body Mass Index: 37.3 Neck Circumference (inches): 20 Nelson: 11 Reason for Sleep Study Witnessed apneas Sleep History The patient is a 61 y/o male with hypertension, GERD, atrial flutter, congestive heart failure and abdominal hernia that had a sleep study ordered for evaluation of sleep apnea. The patient frequently awakens from sleep short of breath. He denies awakening at night with heartburn, belching or cough. He frequently snores and is occasionally loudly enough that others complain. He occasionally has trouble sleeping when he has a cold. He frequently wakes up gasping for air throughout the night. He frequently has breathing problems at night observed by himself or others. He denies sweating excessively at night. He denies having heart palpitations or irregular heartbeats during the night. He occasionally falls asleep during the day. he rarely falls asleep while driving. He denies sleep paralysis, cataplexy and hypnagogic / hypnopompic hallucinations. He rarely has nightmares. He frequently remembers his dreams. He occasionally has thoughts racing through his mind. He denies feeling sad or depressed. He occasionally has anxiety. He denies having muscular tension. He denies noticing parts of his body jerk. He denies kicking during the night. He denies having crawling and aching feelings in his legs as well as leg pain during the night. He denies grinding his teeth during sleep awakening with morning jaw pain. He denies being bothered by pain during the day and being awakened by pain during the night. He denies waking up feeling stiff in the morning. He denies waking up with sore achy muscles. He denies waking up with pain in the neck, spine and other joints. The patient goes to bed between 10 and 11:00 p.m. on weekdays and at midnight on the weekends. He can fall asleep within a few minutes. He wakes up 2-3 times throughout the night for unknown reasons. It takes him 1 of 3 hours to fall back asleep. He wakes up at 5:00 a.m. on weekdays and 6:00 a.m. on the weekends. He typically gets 3-5 hours of sleep per night. He will stay in bed for 10 minutes after waking up in morning. He currently lives with his . He does not consume any caffeinated beverages within 2 hours of bedtime. He is not engage in physical exercise before bedtime. He will watch television before falling asleep. He does not take naps in the afternoon or the evening. He drinks 1-2 caffeinated beverages per day. He drinks 10-12 alcoholic beverages per week. He denies tobacco and recreational drug use. [facility] Past Medical History Medical History Abdominal hernia without obstruction or gangrene Atrial flutter Essential (primary) hypertension Family history of colon cancer Gangrene Lower extremity surgery planned Morbid obesity with BMI of 40.0-44.9, adult Obstructive sleep apnea Family History Family History Father Family history of cardiovascular disease Carcinoma of colon Diabetes mellitus Hypertension Mother Cancer Sibling Hypertension Social History Social History Smoking status: Never smoker Alcohol intake: current Drinks per week: 2 Substance use: never Substance use type: does not use Spiritual care concerns: No Medications Home Medications Medication Instructions Recorded Confirmed Type aspirin 81 mg tablet,delayed 81 mg PO DAILY 12/23/21 02/03/22 History release losartan 25 mg tablet 25 mg PO DAILY #90 tablet 01/14/22 02/03/22 Rx omega-3 acid ethyl esters 1 gram 2 cap PO DAILY #180 cap 01/14/22 02/03/22 Rx capsule ro
[2022-02-18 20:04] VITALS: BMI 37.3
== END 2022-02-13 06:25 | disposition home or self-care (01) ==
LOC: ANHCSM 06:42
PROVIDERS: PCP Internal Medicine; Visit Provider Internal Medicine
DX: G47.33 Obstructive sleep apnea (adult) (pediatric) (principal); I48.91 Unspecified atrial fibrillation
CPT/HCPCS: 95811

== ENCOUNTER 2022-03-03 10:20 | Outpatient (CLI) | payer BC, SELFPAY ==
--- NOTE | 2022-03-13 16:28 | WPDSLEEPSTUD ---
Sleep Study Date of Study: 03/03/22 Ordering Provider: Amelie Leroy DO Interpreting Physician: Dana Hooker MD Sleep Study Type: BiPAP Titration Height: 1.83 m Weight: 125.191 kg Body Mass Index: 37.4 Neck Circumference (inches): 18 Grannis: 4 Reason for Sleep Study * 02/12/2022 split night study showing an AHI of 41.2 and a central apnea index of 2.9.? The supine AHI was 102.? The patient was noted to have Parth-Pappas respirations in the diagnostic portion of the study. The patient had a cycle length of 41 seconds and a circulation time of 26-31 seconds. The titration performed used pressures of CPAP 5 with EPR 2 cm with CPAP up to 20 cm, then BiPAP 18/14 titrated up to 24/20 without optimal pressure identified. REM sleep was present at CPAP 7 cm with 2 EPR. He returns for a full night BiPAP titration. Sleep History Pierre Fiore is a 61 year old male with hypertension, GERD, atrial flutter, congestive heart failure and abdominal hernia with severe obstructive sleep apnea on a split night study 02/12/2022. The patient frequently awakens from sleep short of breath.? He denies awakening at night with heartburn, belching or coughing.? He frequently snores which is occasionally loud enough that others complain.? He occasionally has trouble sleeping when he has a cold.? He frequently wakes up gasping for air throughout the night.? He frequently has breathing problems at night observed by himself or others.? He denies sweating excessively at night.? He denies having heart palpitations or irregular heartbeats during the night.? He occasionally falls asleep during the day. he rarely falls asleep while driving.? He denies sleep paralysis, cataplexy and hypnagogic / hypnopompic hallucinations.? He rarely has nightmares.? He frequently remembers his dreams.? He occasionally has thoughts racing through his mind.? He denies feeling sad or depressed.? He occasionally has anxiety.? He denies having muscular tension.? He denies noticing parts of his body jerk.? He denies kicking during the night.? He denies having crawling and aching feelings in his legs as well as leg pain during the night.? He denies grinding his teeth during sleep awakening with morning jaw pain.? He denies being bothered by pain during the day and being awakened by pain during the night.? He denies waking up feeling stiff in the morning.? He denies waking up with sore achy muscles.? He denies waking up with pain in the neck, spine and other joints. Normal bedtime is between 10 and 11:00 p.m. on weekdays, midnight on the weekends.? He can fall asleep within a few minutes.? He wakes up 2-3 times throughout the night for unknown reasons.? It takes him 1 to 3 hours to return to sleep.? He wakes up at 5:00 a.m. on weekdays and 6:00 a.m. on the weekends.? He typically gets 3-5 hours of sleep per night.? He will stay in bed for 10 minutes after waking in morning.? He currently lives with his .? He does not take naps in the afternoon or the evening.? Habits: No tobacco. He drinks 1-2 caffeinated beverages per day.? He drinks 10-12 alcoholic beverages per week.? No recreational drug use. PMFSH Past Medical History Medical History Abdominal hernia without obstruction or gangrene Atrial flutter Essential (primary) hypertension Family history of colon cancer Gangrene Lower extremity surgery planned Morbid obesity with BMI of 40.0-44.9, adult Obstructive sleep apnea Family History Family History Father Family history of cardiovascular disease Carcinoma of colon Diabetes mellitus Hypertension Mother Cancer Sibling Hypertension Social History Social History Smoking status: Never smoker Alcohol intake: current Drinks per week: 2 Substance use: never Substance use type: does not use Spiritual care concerns
[2022-03-16 19:04] VITALS: BMI 37.4
== END 2022-03-04 07:33 | disposition home or self-care (01) ==
LOC: ANHCSM 10:21
PROVIDERS: PCP Internal Medicine; Visit Provider Family Medicine
DX: G47.33 Obstructive sleep apnea (adult) (pediatric) (principal); G47.61 Periodic limb movement disorder
CPT/HCPCS: 95811

== ENCOUNTER 2022-05-06 10:16 | Emergency (ER) | payer SELFPAY ==
--- NOTE | ~2022-05-06 | US_ITS ---
EXAMINATION: US venous doppler [facility] DATE: 05/06/2022 11:16 INDICATION: Left lower limb pain and swelling TECHNIQUE: Sanon scale images without and with compression and Doppler images of the left lower extrem ity veins were obtained. COMPARISON: None FINDINGS: The left common femoral vein, profunda femoral vein, femoral vein, popliteal vein, peroneal trunk, posterior tibial veins, and greater saphenous vein are patent. IMPRESSION: 1. Patent left lower extremity veins. No evidence of deep venous thrombosis. Reviewed, dictated and finalized at location B.
--- NOTE | ~2022-05-06 | XR_ITS ---
XR foot LT 2V 05/06/2022 10:55 Indication: Left foot pain and swelling Procedure: 2 views left foot Comparison: No prior studies for comparison. Findings: There are lytic defects in the second and third metatarsals. There are likely healed second , third and fourth metatarsal fractures. No acute fractures identified. There are unfused apophysis o f the navicular. Lisfranc joint is intact. Impression: 1: No acute fracture. 2: Small lytic defects of the second and third metatarsals, suspicious for myeloma or metastatic dis ease. Correlate for history of malignancy. Reviewed, dictated and finalized at location A. Impression: 1: No acute fracture. 2: Small lytic defects of the second and third metatarsals, suspicious for mye octavia or metastatic disease. Correlate for history of malignancy.
[2022-05-06 10:24] VITALS: BP 132/87; PULSE 83; RESP 16; TEMP 36.6; O2SAT 97
--- NOTE | 2022-05-06 10:53 | ED.LOWEXIN ---
HPI - Extremity Injury (Lower) General Chief Complaint: Extremity Injury, Lower Stated Complaint: foot pain Time Seen by Provider: 05/06/22 10:26 History of Present Illness HPI Narrative: Patient is a 61-year-old male here for evaluation of left foot swelling and redness for the past 2 weeks with a rash over the past week over the dorsum of his foot. Denies trauma, abrasion to skin, fevers, chills. Notes that his foot is intermittently painful but he has been ambulating without trouble. The rash is not itchy. He has not attempted any medication for his pain. States he largely came in today because he has an A. fib ablation procedure next week, and he wants to get this cleared up before then. No chest pain, shortness of breath, palpitations. Related Data Home Medications Medication Instructions Recorded Confirmed aspirin 81 mg tablet,delayed 81 mg PO DAILY 12/23/21 02/03/22 release (Adult Low Dose Aspirin) cetirizine 10 mg capsule 10 mg PO DAILY PRN Itching 02/03/22 02/03/22 diphenhydramine HCl 25 mg capsule 25 mg PO TID PRN Itching 02/03/22 02/03/22 (Benadryl) epinephrine 0.3 mg/0.3 mL 0.3 mg IM ONCE 02/03/22 02/03/22 injection, auto-injector famotidine 20 mg tablet 20 mg PO BID 02/03/22 02/03/22 Allergies Allergy/AdvReac Type Severity Reaction Status Date / Time morphine Allergy Severe Hallucinati Verified 02/03/22 07:17 ng Review of Systems Review of Systems: Gen: Denies fevers or chills Eyes: Denies eye pain or visual change ENT: Denies congestion Respiratory: Denies shortness of breath or cough CV: Denies chest pain or palpitations GI: Denies abdominal pain nausea, emesis or diarrhea denies burning, urgency, frequency or hematuria Musculoskeletal: Reports left foot pain. Neuro: Denies numbness, tingling, weakness or focal weakness Skin: Denies rash Except as documented, all other systems reviewed and negative PMFSH Past Medical History Medical History Abdominal hernia without obstruction or gangrene Atrial flutter Essential (primary) hypertension Family history of colon cancer Gangrene Lower extremity surgery planned Morbid obesity with BMI of 40.0-44.9, adult Obstructive sleep apnea Family History Family History Father Family history of cardiovascular disease Carcinoma of colon Diabetes mellitus Hypertension Mother Cancer Sibling Hypertension Social History Social History Smoking status: Never smoker Alcohol intake: current Drinks per week: 2 Substance use: never Substance use type: does not use Spiritual care concerns: No Exam Narrative: APPEARANCE: Well appearing, no pain in distress, well-nourished. Head: Normocephalic and atraumatic. EYES: PERRLA/EOMI, conjunctivae clear NOSE: No nasal drainage EARS: External ear normal in appearance THROAT: Oropharynx is clear. Mucous membranes are moist. NECK: Supple. No adenopathy, no masses. RESPIRATORY: Airway patent, respirations nonlabored. Clear to auscultation bilaterally, no rales, rhonchi, wheezing. CARDIOVASCULAR: Doppler signals heard to bilateral DP/PT. Regular rate and rhythm without murmurs, rubs, or gallops. ABDOMINAL: Normoactive bowel sounds. Soft, nontender, nondistended. No rebound tenderness or guarding. MUSCULOSKELETAL: No pain with range of motion of left foot. No tenderness to palpation over medial or lateral malleolus. Nonpitting edema over left ankle. NEURO: Normal speech. No focal neurologic deficits. SKIN: Patient has an erythematous, maculopapular rash to dorsum of left foot just proximal to toes 1 through 4 with overlying crust. Left foot is erythematous up to the ankle. PSYCHIATRIC: Normal affect/mood. Course Consultations Consultation #1: Spoke with Airam Joel NP electronic gluer for Dr. Field, patient's PCP, will see in of
[2022-05-06 11:54] LABS: Basophils Absolute Auto 0.1 K/mm3 (0.0-0.1); Basophils Percent Auto 0.9 % (0.2-1.2); Eosinophils Absolute Auto 0.5 K/mm3 (0-0.3); Eosinophils Percent Auto 4.1 % (0-4.4); Hematocrit 46.1 % (42.0-52.0); Hemoglobin 14.8 g/dL (14.0-18.0); Immature Granulocyte Absolute 0.04 K/mm3 (0.00-0.031); Immature Granulocyte Percent A 0.4 % (0-0.5); Lymphocytes Absolute Auto 2.12 K/mm3 (0.9-3.2); Lymphocytes Percent Auto 19.1 % (18.3-44.2); Mean Corpuscular HGB Conc 32.1 g/dl (32-36); Mean Corpuscular Hemoglobin 29.6 pg (26-34); Mean Corpuscular Volume 92.2 fl (80-100); Mean Platelet Volume 9.1 fl (7.4-10.4); Monocytes Absolute Auto 1.2 K/mm3 (0.1-0.6); Monocytes Percent Auto 10.7 % (2.6-8.5); Neutrophils Absolute Auto 7.2 K/mm3 (1.3-6.7); Neutrophils Percent Auto 64.8 % (45.5-73.1); Platelet Count Result 281 k/mm3 (150-375); Red Cell Distribution Width 12.8 % (11.5-14.5); White Blood Count 11.1 K/mm3 (4.5-10.0)
[2022-05-06 12:04] LABS: Alanine Aminotransferase 23 U/L (6-50); Albumin Level 4.2 g/dL (3.5-5.1); Alkaline Phosphatase 72 U/L (38-126); Anion Gap 6 mmol/L (8-16); Aspartate Amino Transferase 36 U/L (17-59); Bilirubin,Total 0.5 mg/dL (0.2-1.3); Blood Urea Nitrogen 19 mg/dL (9-20); Calcium 8.5 mg/dL (8.4-10.2); Carbon Dioxide 37 mmol/L (22-30); Chloride 97 mmol/L (98-107); Estimated CRCL calculation 93 ml/min; Estimated Glomerular Filt Rate > 60; Glucose 104 mg/dL (65-110); Potassium 4.2 mmol/L (3.4-5.0); Sodium 140 mmol/L (137-145)
== END 2022-05-06 13:14 | disposition home or self-care (01) ==
PROVIDERS: Physician Assistant; Emergency Provider Emergency Medicine; PCP Internal Medicine
DX: L03.116 Cellulitis of left lower limb (principal); I48.92 Unspecified atrial flutter; I10 Essential (primary) hypertension; E66.01 Morbid (severe) obesity due to excess calories; Z68.39 Body mass index [BMI] 39.0-39.9, adult; G47.33 Obstructive sleep apnea (adult) (pediatric); Z79.82 Long term (current) use of aspirin; Z79.01 Long term (current) use of anticoagulants
CPT/HCPCS: 36415; 73620; 80053; 85025; 93971; 99284

== ENCOUNTER 2023-04-07 20:17 | Inpatient (IN) | payer BC, SELFPAY ==
--- NOTE | ~2023-04-07 | US_ITS ---
EXAMINATION: US thoracentesis DATE: 04/11/2023 11:45 INDICATION: Right pleural effusion TECHNIQUE: The procedure and its risks and benefits were discussed with the patient. Potential risks discussed included bleeding, infection, and pneumothorax. The patient understood the risks and agreed to proceed. The skin was prepared and draped in sterile fashion. 1% lidocaine was used for local ane sthesia. Under ultrasound guidance, a 5 Fr catheter with trochar was advanced into the right pleural effusion. Fluid was aspirated. The catheter was removed, and a dressing was applied. There were no im mediate complications. FINDINGS: Ultrasound images demonstrate a right pleural effusion and the catheter within the fluid. IMPRESSION: 1. Successful ultrasound-guided thoracentesis yielding 10 mL of serosanguineous fluid for laboratory analysis. Reviewed, dictated and finalized at location A.
--- NOTE | ~2023-04-07 | XR_ITS ---
Clinical Indication: Fever PA and lateral views of the chest: Comparison: 02/03/2022 Findings: Small right pleural effusion is present with extensive hazy right basilar right midlung air space disease. Left lung clear.. Cardiomediastinal silhouette is within normal limits. Multiple righ t-sided rib fracture deformities are present, probably involving the third fourth, fifth, sixth, and seventh ribs. Impression: Hazy left basilar and left midlung airspace disease, which could reflect pneumonia. Additional consid erations could include pulmonary contusion or hemorrhage, or asymmetric pulmonary edema. Small right pleural effusion. Multiple right-sided rib fracture deformities, probably involving the third through seventh ribs. Reviewed, dictated and finalized at location . Impression: Hazy left basilar and left midlung airspace disease, which could reflect pneumo teresa. Additional considerations could include pulmonary contusion or hemorrhage, or asymmetric pulmonary edema. Small right pleural effusion. Multiple right-sided rib fracture deformities, probably involving the third thr ough seventh ribs.
--- NOTE | ~2023-04-07 | XR_ITS ---
EXAMINATION: [id number] DATE: 04/11/2023 11:42 INDICATION: Right pleural effusion persist thoracentesis TECHNIQUE: AP and lateral views of the chest are obtained. COMPARISON: 04/07/2023 FINDINGS: There is a small right pleural effusion without significant change. No pneumothorax is iden tified. There are stable airspace opacities of the right mid and lower lung zones. The heart size is normal. Displaced right-sided rib fractures are again noted. IMPRESSION: 1. Small right pleural effusion. No pneumothorax post thoracentesis. 2. Airspace opacities of the right middle lower lung zones, consistent with atelectasis versus pneumo teresa. Reviewed, dictated and finalized at location A. IMPRESSION: 1. Small right pleural effusion. No pneumothorax post thoracentesis. 2. Airspace opacities of the right middle lower lung zones, consistent with ate lectasis versus pneumonia.
--- NOTE | ~2023-04-07 | CT_ITS ---
EXAMINATION: CTA chest PE protocol DATE: 04/08/2023 18:37 INDICATION: concerns for PE with tachycardia, SOB, trauma TECHNIQUE: Computed tomography angiography (CTA) of the chest was performed with 100 mL Omnipaque-350 intravenous contrast timed to evaluate the pulmonary arteries. Coronal maximum intensity projection 3D-reconstructions were created by the technologist. The dose-length product (DLP) was 2089.71 mGy-cm . Automated exposure control and iterative reconstruction technique were employed. COMPARISON: 02/03/2022. FINDINGS: Lung parenchyma and airways: Dependent left basilar atelectasis/consolidation.. Pleura: Moderate right and trace left pleural fluid collections, with pleural thickening/enhancement on the right. Thoracic inlet, axillae and chest wall: Mild arch calcification. Thoracic aorta: Normal. Mediastinum: Right hilar and mediastinal lymphadenopathy. Heart and pericardium: Mild aortic valve calcification. Coronary artery calcifications: Mild. Upper abdomen: No significant finding. Bones: Segmental right rib fractures involving ribs 2 through 6. Posterior rib fractures involving th e right seventh through 10th ribs. Numerous rib fractures have subacute features. Pulmonary arteries: Study quality: Limited by suboptimal contrast bolus and motion artifact, even aft er repeat imaging and injection. No pulmonary emboli detected. IMPRESSION: Limited examination such that nonocclusive segmental and subsegmental emboli could be missed. No cent ral or occlusive segmental emboli detected. Right flail chest. Moderate right hemothorax. Dependent right lower lobe atelectasis/consolidation. N o pneumothorax. Right hilar and mediastinal lymphadenopathy. Reviewed, dictated and finalized at location K. IMPRESSION: Limited examination such that nonocclusive segmental and subsegmental emboli co uld be missed. No central or occlusive segmental emboli detected. Right flail chest. Moderate right hemothorax. Dependent right lower lobe atelec tasis/consolidation. No pneumothorax. Right hilar and mediastinal lymphadenopathy.
--- NOTE | ~2023-04-07 | XR_ITS ---
Portable chest x-ray Comparison: 04/07/2023 Clinical History: Right pleural effusion Findings: Probable minimal right pleural effusion. Extensive haziness in the right lung is again pre sent. Left lung clear. Cardiomediastinal silhouette is stable. Multiple right-sided rib fractures ag ain noted. Impression: Extensive hazy right lung airspace disease again noted. Minimal right pleural effusion. Multiple right-sided rib fractures again noted. Reviewed, dictated and finalized at location . Impression: Extensive hazy right lung airspace disease again noted. Minimal right pleural effusion. Multiple right-sided rib fractures again noted.
--- NOTE | ~2023-04-07 | MR_ITS ---
EXAMINATION: MR brain/brain stem wo con DATE: 04/12/2023 07:56 INDICATION: Hyponatremia TECHNIQUE: Magnetic resonance imaging (MRI) of the brain and brainstem was performed without intraven ous contrast. Sequences included sagittal and axial T1-weighted SE, axial diffusion-weighted FS SE, a xial T2*-weighted GRE, axial T2-weighted FLAIR, and axial T2-weighted FSE. Postcontrast axial and cor onal T1-weighted SE was obtained. Apparent diffusion coefficient (ADC) maps were created. COMPARISON: None. FINDINGS: There are no areas of restricted diffusion to suggest acute infarction. No intracranial hemorrhage or abnormal intracranial mass lesion. Single small focus of nonspecific white matter T2 hyperintensity in the left frontal lobe velasquez radiata which is within normal limits for age. There are no intrapare nchymal signal abnormalities seen on the other pulse sequences. The ventricles are symmetric and norm al in size. There are no abnormal extra-axial fluid collections. Flow voids are seen in the cerebral arteries on the T2-weighted sequences consistent with their expected patency. Left vertebral artery i s dominant. Visualized orbits and soft tissues are unremarkable. IMPRESSION: 1. Normal for age brain. No acute intracranial process. Reviewed, dictated and finalized at location A.
[2023-04-07 20:21] VITALS: BP 138/62; PULSE 105; RESP 19; TEMP 37; O2SAT 95
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
[2023-04-08] VITALS (15 sets, daily range): BP systolic 148–189; BP diastolic 82–96; PULSE 103–122; RESP 16–22; TEMP 36.3–38.4; O2SAT 93–100; BMI 39.6; BMI 38.4
[2023-04-08 01:56] LABS: Basophils Absolute Auto 0.1 K/mm3 (0.0-0.1); Basophils Percent Auto 0.5 % (0.2-1.2); Eosinophils Absolute Auto 0.1 K/mm3 (0-0.3); Eosinophils Percent Auto 0.4 % (0-4.4); Hematocrit 34.4 % (42.0-52.0); Immature Granulocyte Absolute 0.12 K/mm3 (0.00-0.031); Immature Granulocyte Percent A 0.7 % (0-0.5); Mean Corpuscular Hemoglobin 29.4 pg (26-34); Mean Platelet Volume 8.8 fl (7.4-10.4); Monocytes Absolute Auto 1.7 K/mm3 (0.1-0.6); Monocytes Percent Auto 9.5 % (2.6-8.5); Neutrophils Absolute Auto 14.1 K/mm3 (1.3-6.7); Neutrophils Percent Auto 80.9 % (45.5-73.1); Platelet Count Result 470 k/mm3 (150-375); Red Blood Count 3.74 M/mm3 (4.6-6.20); Red Cell Distribution Width 12.9 % (11.5-14.5); White Blood Count 17.4 K/mm3 (4.5-10.0)
[2023-04-08 02:06] LABS: Alanine Aminotransferase 18 U/L (6-50); Albumin Level 3.7 g/dL (3.5-5.1); Alkaline Phosphatase 136 U/L (38-126); Anion Gap 6 mmol/L (8-16); Aspartate Amino Transferase 23 U/L (17-59); Bilirubin,Total 0.8 mg/dL (0.2-1.3); Blood Urea Nitrogen 9 mg/dL (9-20); Calcium 8.7 mg/dL (8.4-10.2); Carbon Dioxide 36 mmol/L (22-30); Chloride 89 mmol/L (98-107); Estimated Glomerular Filt Rate > 60; Glucose 99 mg/dL (65-110); Potassium 3.5 mmol/L (3.4-5.0); Sodium 131 mmol/L (137-145)
[2023-04-08] MEDS: AZITHROMYCIN 250 MG TABLET 500 MG PO (02:11)
--- NOTE | 2023-04-08 02:57 | ECG_ITS ---
Measurements Intervals Velva Rate: 111 P: 55 OK: 165 QRS: -11 QRSD: 111 T: 35 QT: 327 QTc: 446 Interpretive Statements SINUS TACHYCARDIA POSSIBLE LEFT ATRIAL ENLARGEMENT [-0.1mV P-WAVE IN V1/V2] MODERATE INTRAVENTRICULAR CONDUCTION DELAY [110+ ms QRS DURATION] ABNORMAL ECG COMPARED TO ECG 02/05/2022 08:54:52 SINUS TACHYCARDIA NOW PRESENT INTRAVENTRICULAR CONDUCTION DELAY NOW PRESENT Electronically Signed On 04-08-2023 11:57:31 CDT by Terry Lawson M.D.
[2023-04-08] MEDS: LACTATED RINGERS 1,000 ML 999 ML IV CONT (03:59)
[2023-04-08 04:40] LABS: Lactic Acid Reflex 0.8 mmol/L (0.7-2.0)
--- NOTE | 2023-04-08 04:47 | ADMGEN ---
This patient, Pierre Fiore, was admitted to Medical Room 257-01. Patient/family oriented to hospital policies and general routines including ID bracelet, bed and alarms, visiting hours, pain management, procedures, bathroom and other care routines, personal items, smoking policy, room service/diet, and visiting hours. Information on how to activate the Rapid Response Team has been discussed. Patient/Family are encouraged to report perceived risks to care and to ask questions if they do not understand what they are told or what they should do.
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
[2023-04-08] MEDS: VANCOMYCIN 1,250 MG/NS 250 ML 1,250 MG/250 ML BAG 166.67 MG IVPB ×2 (10:21→11:55)
[2023-04-08] MEDS: SODIUM CHLORIDE 0.9% IV 1,000 ML 75 ML IV CONT (10:21)
[2023-04-08 10:23] LABS: Procalcitonin 0.3 ng/mL
[2023-04-08] MEDS: oxyCODONE HCL (*CRX) 5 MG TAB IR PO ×2 (10:31→17:09)
[2023-04-08] MEDS: ACETAMINOPHEN 325 MG TABLET 650 MG PO ×3 (10:55→20:22)
[2023-04-08 11:09] LABS: Influenza A QL RT-PCR Negative (Negative); Influenza B QL RT-PCR Negative (Negative); RSV RNA, RT-PCR Negative (Negative); SARS-CoV-2 RNA PCR Negative (Negative)
[2023-04-08] MEDS: CYCLOBENZAPRINE HCL 10 MG TABLET PO (11:09)
[2023-04-08] MEDS: LOSARTAN POTASSIUM 25 MG TABLET PO (11:15)
[2023-04-08] MEDS: APIXABAN 5 MG TABLET PO ×2 (17:07→18:43)
[2023-04-08 17:45] LABS: Basophils Absolute Auto 0.1 K/mm3 (0.0-0.1); Basophils Percent Auto 0.5 % (0.2-1.2); Eosinophils Absolute Auto 0.1 K/mm3 (0-0.3); Eosinophils Percent Auto 0.4 % (0-4.4); Hematocrit 36.5 % (42.0-52.0); Hemoglobin 11.3 g/dL (14.0-18.0); Immature Granulocyte Absolute 0.11 K/mm3 (0.00-0.031); Immature Granulocyte Percent A 0.6 % (0-0.5); Lymphocytes Absolute Auto 0.89 K/mm3 (0.9-3.2); Lymphocytes Percent Auto 5.2 % (18.3-44.2); Mean Corpuscular Hemoglobin 29.1 pg (26-34); Mean Corpuscular Volume 94.1 fl (80-100); Mean Platelet Volume 9.4 fl (7.4-10.4); Monocytes Absolute Auto 1.6 K/mm3 (0.1-0.6); Monocytes Percent Auto 9.6 % (2.6-8.5); Neutrophils Absolute Auto 14.3 K/mm3 (1.3-6.7); Neutrophils Percent Auto 83.7 % (45.5-73.1); Platelet Count Result 409 k/mm3 (150-375); Red Blood Count 3.88 M/mm3 (4.6-6.20); Red Cell Distribution Width 12.9 % (11.5-14.5); White Blood Count 17.1 K/mm3 (4.5-10.0)
[2023-04-08 18:00] LABS: Anion Gap 8 mmol/L (8-16); Blood Urea Nitrogen 6 mg/dL (9-20); Calcium 8.3 mg/dL (8.4-10.2); Carbon Dioxide 29 mmol/L (22-30); Chloride 91 mmol/L (98-107); Estimated CRCL calculation 146 ml/min; Estimated Glomerular Filt Rate > 60; Glucose 102 mg/dL (65-110); Lactic Acid Reflex 1.2 mmol/L (0.7-2.0); Potassium 3.6 mmol/L (3.4-5.0); Sodium 128 mmol/L (137-145)
[2023-04-08 18:21] LABS: D Dimer 4.53 ug/mL (<0.48)
[2023-04-08] MEDS: WATER FOR IRRIGATION, STERILE 1,000 ML BOTTLE 1000 ML (21:56)
[2023-04-09] VITALS (13 sets, daily range): BP systolic 143–172; BP diastolic 82–96; PULSE 66–129; RESP 16–18; TEMP 36.2–36.6; O2SAT 94–97
[2023-04-09] MEDS: AZITHROMYCIN 500 MG/NS 250 ML 500 MG/250 ML BAG 250 MG IVPB (00:16)
[2023-04-09] MEDS: oxyCODONE HCL (*CRX) 5 MG TAB IR PO (00:20)
[2023-04-09] MEDS: SODIUM CHLORIDE 0.9% IV 1,000 ML 75 ML IV CONT (04:21)
[2023-04-09] MEDS: ACETAMINOPHEN 325 MG TABLET 650 MG PO ×4 (04:43→22:19)
[2023-04-09 05:41] LABS: Basophils Absolute Auto 0.1 K/mm3 (0.0-0.1); Basophils Percent Auto 0.5 % (0.2-1.2); Eosinophils Absolute Auto 0.1 K/mm3 (0-0.3); Eosinophils Percent Auto 0.6 % (0-4.4); Hematocrit 33.9 % (42.0-52.0); Hemoglobin 10.5 g/dL (14.0-18.0); Immature Granulocyte Absolute 0.14 K/mm3 (0.00-0.031); Immature Granulocyte Percent A 0.8 % (0-0.5); Lymphocytes Absolute Auto 1.06 K/mm3 (0.9-3.2); Lymphocytes Percent Auto 6.3 % (18.3-44.2); Mean Corpuscular Hemoglobin 28.8 pg (26-34); Mean Corpuscular Volume 92.9 fl (80-100); Mean Platelet Volume 8.9 fl (7.4-10.4); Monocytes Absolute Auto 1.7 K/mm3 (0.1-0.6); Monocytes Percent Auto 10.1 % (2.6-8.5); Neutrophils Absolute Auto 13.7 K/mm3 (1.3-6.7); Neutrophils Percent Auto 81.7 % (45.5-73.1); Platelet Count Result 504 k/mm3 (150-375); Red Blood Count 3.65 M/mm3 (4.6-6.20); Red Cell Distribution Width 12.9 % (11.5-14.5); White Blood Count 16.8 K/mm3 (4.5-10.0)
[2023-04-09 05:49] LABS: INR 1.2; Prothrombin Time 16.1 Seconds (11.1-14.7)
[2023-04-09 05:50] LABS: Partial Thromboplastin Time 51.2 SECONDS (22.3-36.8)
[2023-04-09 05:51] LABS: Alanine Aminotransferase 18 U/L (6-50); Albumin Level 3.3 g/dL (3.5-5.1); Alkaline Phosphatase 130 U/L (38-126); Anion Gap 6 mmol/L (8-16); Aspartate Amino Transferase 23 U/L (17-59); Bilirubin,Total 0.7 mg/dL (0.2-1.3); Blood Urea Nitrogen 4 mg/dL (9-20); Calcium 8.2 mg/dL (8.4-10.2); Carbon Dioxide 37 mmol/L (22-30); Chloride 85 mmol/L (98-107); Estimated CRCL calculation 146 ml/min; Estimated Glomerular Filt Rate > 60; Glucose 117 mg/dL (65-110); Phosphorus 3.7 mg/dL (2.5-4.5); Potassium 3.4 mmol/L (3.4-5.0); Sodium 128 mmol/L (137-145)
[2023-04-09 05:54] LABS: Cholesterol 168 mg/dL (0-200); HDL Direct 14 mg/dL; Triglycerides 178 mg/dL (<150)
[2023-04-09 06:01] LABS: LDL Cholesterol Direct 107 mg/dL
[2023-04-09 06:24] LABS: CRP 39.8 mg/dL (<1.0)
[2023-04-09] MEDS: LOSARTAN POTASSIUM 25 MG TABLET PO (08:14)
[2023-04-09] MEDS: FAMOTIDINE 20 MG TABLET PO (08:15)
[2023-04-09] MEDS: METOPROLOL SUCCINATE EXT REL 25 MG TABCR PO ×2 (08:15→20:59)
[2023-04-09] MEDS: ROSUVASTATIN 10 MG TABLET 20 MG PO (08:15)
--- NOTE | 2023-04-09 09:09 | PM.IMPN ---
Progress Note: A&P Assessment and Plan (1) Leukocytosis: Qualifiers: Leukocytosis type: bandemia Qualified Code(s): D72.825 - Bandemia Code(s): D72.829 - Elevated white blood cell count, unspecified Status: Acute Assessment and Plan: Suspected complicated, community acquired pneumonia -Recent hospitalization with ICU stay requiring intubation. Multiple rib fractures in various stages of healing. -Leukocytosis with bandemia. Patient reports fever, chills, and body aches for the last week. TMAX 101.2 on 04/08 with repeat cultures. Blood cultures obtained upon admission have NGTD. Ordered sputum culture and is pending review. Chest x-ray shows small right pleural effusion and right midlung airspace disease, could represent pneumonia. IV antibiotics azithromycin and Rocephin ordered. Added vancomycin coverage given recent hospitalization. -Given patients clinical picture of tachycardia, SOB, fever, recent trauma and noncompliance with eliquis patient was taken for CTA to rule out PE. CTA negtive for PE but did show a right hemothorax. Reviewed outside records per PCP Dr. Leroy's note and there was no mention of a hemothorax, but actual reports are not available for viewing. Will request images from OSH. -screen for respiratory virus COVID, FLU, RSV all negative -Ordered urine antigen for S. Pneumoniae and urine antigen for L. pneumophila pending. -Provide patient with incentive spirometer and encourage use 10 x hour. -Will torres culture with fever > 101.4. Acetaminophen prn for fever and pain. (2) Multiple rib fractures: Qualifiers: Encounter type: subsequent encounter Fracture healing: with routine healing Fracture type: closed Laterality: unspecified laterality Qualified Code(s): S22.49XD - Multiple fractures of ribs, unspecified side, subsequent encounter for fracture with routine healing Code(s): S22.49XA - Multiple fractures of ribs, unspecified side, initial encounter for closed fracture Status: Acute Assessment and Plan: -Ensure adequate pain control to allow for cough and deep breathing. PRN acetaminophen with oxycodone for breakthrough pain. Flexeril for muscle spasms. -Provide patient with IS and teach how to use. (3) Atrial fibrillation: Qualifiers: Atrial fibrillation type: unspecified Qualified Code(s): I48.91 - Unspecified atrial fibrillation Code(s): I48.91 - Unspecified atrial fibrillation Status: Acute Assessment and Plan: -History of a-fib for which he had an ablation last 06/2023. He had been doing well but during recent ICU admission developed a-fib with RVR. Eliquis 5 mg BID was started during that admission. For some reason apixaban was started here. Patient reports he did run out of his eliquis when he went to [place] recently to visit his . He estimates he missed a weeks worth of medication. -Telemetry ordered. ST on the monitor. 109-119 HR. -Taking Eliquis 5 mg PO BID, metoprolol succinate 25 mg PO daily. Will increase Metoprolol succinate 25 mg BID in hopes of lowering heart rate and BP. He also reports being on losartan in the past but that was stopped during his last hospitalization. Restarted this admission due to HTN. Blood pressures are elevated 130-170 SBP. Heart rate initially was tachycardic 117's. After IV fluids it has improved to low 100's. IV fluids with NS decreased from 150 ml per hour to 75 ml per hour. Patient is now drinking lots of fluids and did not fever overnight. Will stop IV fluids. Hopefully this will help with BP as well. -Follows with cards here at [facility], unsure of the Drs. name. (4) Hyperlipidemia: Qualifiers: Hyperlipidemia type: unspecified Qualified Code(s): E78.5 - Hyperlipidemia, unspecified Code(s): E78.5 - Hyperlipidemia, unspecified Status: Acute Assessment and Plan: Hyperlipidemia -ordered am lipid panel Triglycerides 178 mg/dl Total cholesterol 16
[2023-04-09] MEDS: diphenhydrAMINE HCl INJ 50 MG/ML VIAL 25 MG IV PUSH (10:58)
[2023-04-09] MEDS: APIXABAN 5 MG TABLET PO ×2 (11:12→20:59)
[2023-04-09 15:08] LABS: Appearance Urine Clear (Clear); Bacteria Urine None Seen /hpf; Bilirubin Urine Negative (Negative); Blood Urine Trace (Negative); Color Urine Yellow (Yellow); Glucose Urine UA Negative (Negative); Ketones Urine Trace mg/dL (Negative); Leukocyte Esterase Ur Negative LEU/UL (Negative); Nitrate Urine Negative (Negative); Non Pathogenic Casts 0-2; Protein Urine 1+ mg/dL (Negative); Specific Grav Ur 1.016 (1.001-1.035); Squamous Epithelial Cell Urine None seen /hpf (Few); WBC Urine 0-5 /hpf; pH Urine 7.5 (5.0-9.0)
[2023-04-09 15:15] LABS: Add Urine Microscopic? YES
[2023-04-09 17:25] LABS: Erythrocyte Sedimentation Rate 65 mm/hr (0-20)
[2023-04-09] MEDS: LINEZOLID 600 MG/300 ML 600 MG/300 ML SOLN 300 MG IVPB (22:11)
[2023-04-10] VITALS (11 sets, daily range): BP systolic 135–156; BP diastolic 64–92; PULSE 90–108; RESP 16–20; TEMP 36.9–37.3; O2SAT 93–96
[2023-04-10] MEDS: AZITHROMYCIN 500 MG/NS 250 ML 500 MG/250 ML BAG 250 MG IVPB (00:56)
[2023-04-10] MEDS: ACETAMINOPHEN 325 MG TABLET 650 MG PO ×4 (03:25→22:04)
[2023-04-10 05:29] LABS: Basophils Absolute Auto 0.1 K/mm3 (0.0-0.1); Basophils Percent Auto 0.5 % (0.2-1.2); Eosinophils Absolute Auto 0.2 K/mm3 (0-0.3); Hematocrit 32.5 % (42.0-52.0); Hemoglobin 10.3 g/dL (14.0-18.0); Immature Granulocyte Absolute 0.13 K/mm3 (0.00-0.031); Immature Granulocyte Percent A 0.8 % (0-0.5); Lymphocytes Absolute Auto 1.09 K/mm3 (0.9-3.2); Lymphocytes Percent Auto 6.6 % (18.3-44.2); Mean Corpuscular HGB Conc 31.7 g/dl (32-36); Mean Corpuscular Hemoglobin 29.3 pg (26-34); Mean Corpuscular Volume 92.6 fl (80-100); Mean Platelet Volume 8.8 fl (7.4-10.4); Monocytes Absolute Auto 1.5 K/mm3 (0.1-0.6); Monocytes Percent Auto 8.9 % (2.6-8.5); Neutrophils Absolute Auto 13.6 K/mm3 (1.3-6.7); Neutrophils Percent Auto 82.2 % (45.5-73.1); Platelet Count Result 491 k/mm3 (150-375); Red Blood Count 3.51 M/mm3 (4.6-6.20); White Blood Count 16.6 K/mm3 (4.5-10.0)
[2023-04-10 05:40] LABS: Anion Gap 5 mmol/L (8-16); Blood Urea Nitrogen 6 mg/dL (9-20); Calcium 8.1 mg/dL (8.4-10.2); Carbon Dioxide 36 mmol/L (22-30); Chloride 87 mmol/L (98-107); Estimated CRCL calculation 146 ml/min; Estimated Glomerular Filt Rate > 60; Glucose 114 mg/dL (65-110); Potassium 3.6 mmol/L (3.4-5.0); Sodium 128 mmol/L (137-145)
[2023-04-10] MEDS: APIXABAN 5 MG TABLET PO (09:14)
[2023-04-10] MEDS: METOPROLOL SUCCINATE EXT REL 25 MG TABCR PO ×2 (09:16→22:04)
[2023-04-10] MEDS: FAMOTIDINE 20 MG TABLET PO (09:16)
[2023-04-10] MEDS: ROSUVASTATIN 10 MG TABLET 20 MG PO (09:16)
[2023-04-10] MEDS: LOSARTAN POTASSIUM 25 MG TABLET PO (09:17)
[2023-04-10] MEDS: LINEZOLID 600 MG/300 ML 600 MG/300 ML SOLN 300 MG IVPB ×2 (10:33→20:52)
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
[2023-04-10 16:12] LABS: Pneumococcal Antigen Urine Not Detected (Not Detected)
[2023-04-11] VITALS (14 sets, daily range): BP systolic 114–160; BP diastolic 61–85; PULSE 84–98; RESP 16–20; TEMP 36.4–37.6; O2SAT 92–97
[2023-04-11] MEDS: AZITHROMYCIN 500 MG/NS 250 ML 500 MG/250 ML BAG 250 MG IVPB (00:20)
[2023-04-11 06:13] LABS: INR 1.1
[2023-04-11 06:14] LABS: Lactate Dehydrogenase 138 U/L (120-246); Partial Thromboplastin Time 35.3 SECONDS (22.3-36.8)
[2023-04-11 08:14] LABS: Anion Gap 7 mmol/L (8-16); Blood Urea Nitrogen 6 mg/dL (9-20); Calcium 8.1 mg/dL (8.4-10.2); Carbon Dioxide 31 mmol/L (22-30); Chloride 88 mmol/L (98-107); Estimated CRCL calculation 172 ml/min; Estimated Glomerular Filt Rate > 60; Glucose 109 mg/dL (65-110); Potassium 3.9 mmol/L (3.4-5.0); Sodium 126 mmol/L (137-145)
[2023-04-11 08:29] LABS: Basophils Absolute Auto 0.1 K/mm3 (0.0-0.1); Basophils Percent Auto 0.5 % (0.2-1.2); Eosinophils Absolute Auto 0.2 K/mm3 (0-0.3); Eosinophils Percent Auto 0.9 % (0-4.4); Hematocrit 35.1 % (42.0-52.0); Hemoglobin 10.8 g/dL (14.0-18.0); Immature Granulocyte Absolute 0.35 K/mm3 (0.00-0.031); Immature Granulocyte Percent A 2.2 % (0-0.5); Lymphocytes Percent Auto 6.8 % (18.3-44.2); Mean Corpuscular HGB Conc 30.8 g/dl (32-36); Mean Corpuscular Hemoglobin 28.8 pg (26-34); Mean Corpuscular Volume 93.6 fl (80-100); Mean Platelet Volume 9.4 fl (7.4-10.4); Monocytes Absolute Auto 1.4 K/mm3 (0.1-0.6); Monocytes Percent Auto 8.8 % (2.6-8.5); Neutrophils Percent Auto 80.8 % (45.5-73.1); Platelet Count Result 575 k/mm3 (150-375); Red Blood Count 3.75 M/mm3 (4.6-6.20); White Blood Count 16.1 K/mm3 (4.5-10.0)
[2023-04-11] MEDS: LINEZOLID 600 MG/300 ML 600 MG/300 ML SOLN 300 MG IVPB ×2 (09:12→21:03)
[2023-04-11] MEDS: METOPROLOL SUCCINATE EXT REL 25 MG TABCR PO ×2 (09:12→21:04)
[2023-04-11] MEDS: ROSUVASTATIN 10 MG TABLET 20 MG PO (09:12)
[2023-04-11] MEDS: FAMOTIDINE 20 MG TABLET PO (09:12)
[2023-04-11] MEDS: LOSARTAN POTASSIUM 25 MG TABLET PO (09:12)
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
[2023-04-11 11:48] LABS: pH Pleural Fluid 6.819 (7.210-7.500)
[2023-04-11] MEDS: ACETAMINOPHEN 325 MG TABLET 650 MG PO ×3 (12:10→22:05)
[2023-04-11 13:42] LABS: Appearance Pleural Fluid Cloudy (Clear); Color Pleural Fluid Red (Colorless); Pleural fluid source Pleural fluid
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
--- NOTE | 2023-04-11 14:30 | PC.NURSE ---
Patient removed continuous pulse oximeter and is refusing to wear it.
[2023-04-11 15:49] LABS: Sodium Urine Random 21 meq/L; Urea Random Urine 404 MG/DL
[2023-04-11] MEDS: FUROSEMIDE 20 MG TABLET PO (17:57)
[2023-04-11] MEDS: SODIUM CHLORIDE 1 GM TABLET PO (17:57)
[2023-04-12] VITALS (9 sets, daily range): BP systolic 132–141; BP diastolic 65–82; PULSE 84–876; RESP 17–20; TEMP 37–37.7; O2SAT 92–98
[2023-04-12] MEDS: AZITHROMYCIN 500 MG/NS 250 ML 500 MG/250 ML BAG 250 MG IVPB (00:10)
[2023-04-12] MEDS: ACETAMINOPHEN 325 MG TABLET 650 MG PO ×4 (03:10→17:14)
[2023-04-12 06:26] LABS: Anion Gap 5 mmol/L (8-16); Blood Urea Nitrogen 8 mg/dL (9-20); Carbon Dioxide 35 mmol/L (22-30); Chloride 87 mmol/L (98-107); Estimated CRCL calculation 146 ml/min; Estimated Glomerular Filt Rate > 60; Glucose 119 mg/dL (65-110); Potassium 3.5 mmol/L (3.4-5.0); Sodium 127 mmol/L (137-145)
[2023-04-12] MEDS: ROSUVASTATIN 10 MG TABLET 20 MG PO (08:22)
[2023-04-12] MEDS: METOPROLOL SUCCINATE EXT REL 25 MG TABCR PO (08:22)
[2023-04-12] MEDS: SODIUM CHLORIDE 1 GM TABLET PO ×2 (08:22→17:14)
[2023-04-12] MEDS: LOSARTAN POTASSIUM 25 MG TABLET PO (08:22)
[2023-04-12] MEDS: FUROSEMIDE 20 MG TABLET PO ×2 (08:22→17:14)
[2023-04-12] MEDS: LINEZOLID 600 MG/300 ML 600 MG/300 ML SOLN 300 MG IVPB (08:22)
[2023-04-12] MEDS: FAMOTIDINE 20 MG TABLET PO (08:22)
[2023-04-12] MEDS: PIPERACILLN/TAZ 3.375GM/NS50ML 3.375 GM/50 ML BAG IVPB ×2 (09:29→15:33)
[2023-04-12] MEDS: levoFLOXacin 750 MG/D5W 150 ML 750 MG/150 ML BAG 100 MG IVPB (10:03)
--- NOTE | 2023-04-12 12:26 | PM.IMPN ---
Progress Note: A&P Assessment and Plan (1) Leukocytosis: Qualifiers: Leukocytosis type: bandemia Qualified Code(s): D72.825 - Bandemia Code(s): D72.829 - Elevated white blood cell count, unspecified Status: Acute Assessment and Plan: Possibly related to a pneumonia. Patient does have hemothorax/effusion as well, noted on CT which is likely from his injury. Multiple rib fractures. Continue antibiotics Thoracentesis revealed empyema. Awaiting transfer to [facility]. (2) Multiple rib fractures: Qualifiers: Encounter type: subsequent encounter Fracture type: closed Laterality: unspecified laterality Fracture healing: with routine healing Qualified Code(s): S22.49XD - Multiple fractures of ribs, unspecified side, subsequent encounter for fracture with routine healing Code(s): S22.49XA - Multiple fractures of ribs, unspecified side, initial encounter for closed fracture Status: Acute Assessment and Plan: Pain control (3) Atrial fibrillation: Qualifiers: Atrial fibrillation type: unspecified Qualified Code(s): I48.91 - Unspecified atrial fibrillation Code(s): I48.91 - Unspecified atrial fibrillation Status: Acute Assessment and Plan: Monitor. Currently on Eliquis. (4) Hyperlipidemia: Qualifiers: Hyperlipidemia type: unspecified Qualified Code(s): E78.5 - Hyperlipidemia, unspecified Code(s): E78.5 - Hyperlipidemia, unspecified Status: Acute Assessment and Plan: Continue home medications (5) Rash: Code(s): R21 - Rash and other nonspecific skin eruption Status: Acute Assessment and Plan: Patient developed erythema and flushing to face, neck, and anterior chest. There are concerns for redmans related to IV vancomycin. Will give IVP 25 mg of Benadryl now and stop vanco. Transition to Linezolid for MRSA coverage. Case discussed with my attending, Dr Kuo. Subjective Date/time seen: 04/12/23 12:26 Interval history: Doing okay Exam Narrative: General: well appearing, obese, appears stated age. Neuro: Alert and orientated x 4. PERRLA. Cranial nerves 2-12 intact without focal deficit. HEENT: normocephalic, atraumatic. Mucous membranes moist. Neck supple without JVD or lymphadenopathy. Respiratory: clear to auscultation anteriorly. Lung sounds diminished throughout posteriorly, with coarse notes over right middle lobe. No rales/rhonic/wheezes. Cardiovascular: Regular rate and rhythm, normal S1-S2 upon auscultation. No murmurs, rubs, or clicks. PMI is nondisplaced. Abdomen: Soft, round, and non-tender. small palpable, hard bulge to midline abdomen likely scar tissue from multiple hernia repairs. Bowel sounds present to all four quadrants. Extremities: No cyanosis, clubbing, or edema present. Pulses are palpable 2/2. Active ROM to all four extremities. Skin: Warm, dry, and intact. New erythema noted to face and chest with warmth. Psych: pleasant, cooperative, normal speech, normal affect. Objective Data Vital Signs Vital Signs: Vital Signs - 24 hr 04/11/23 14:00 04/11/23 16:00 04/11/23 19:54 Temperature 97.6 F Pulse Rate 91 93 94 Respiratory Rate 16 19 Blood Pressure 124/61 Pulse Oximetry 94 96 Oxygen Delivery Room Air 04/11/23 19:51 04/11/23 20:00 04/12/23 00:00 Temperature 98.7 F Pulse Rate 98 94 87 Respiratory Rate 20 Blood Pressure 114/69 Pulse Oximetry 95 Oxygen Delivery 04/12/23 04:33 04/12/23 04:00 04/12/23 08:19 Temperature 98.6 F 98.7 F Pulse Rate 87 876 H 84 Respiratory Rate 20 18 Blood Pressure 141/77 H 132/82 Pulse Oximetry 92 98 Oxygen Delivery 04/12/23 08:22 04/12/23 09:50 04/12/23 08:30 Temperature Pulse Rate 92 90 Respiratory Rate Blood Pressure Pulse Oximetry Oxygen Delivery Room Air Intake/Output Intake/Output: Intake & Output 04/09/23 04/10/23 07/0
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
[2023-04-14 18:36] LABS: Osmolality, Urine 253 mOsm/kg (50-1200)
[2023-04-15 00:02] LABS: Legionella pneumophila Ag Ur Not Detected (Not Detected)
[2023-04-15 14:34] LABS: Albumin 2.1 g/dL (3.8-4.8); Alpha 1 Globulin 0.7 g/dL (0.2-0.3); Alpha 2 Globulin 1.3 g/dL (0.5-0.9); Beta 1 Globulin 0.4 g/dL (0.4-0.6); Gamma Globulin 0.8 g/dL (0.8-1.7); Protein, Total 5.8 g/dL (6.1-8.1)
[2023-04-17 13:18] LABS: Mycoplasma IgM Antibody Titer 32 U/mL (<770)
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
== END 2023-04-12 19:00 | disposition short-term general hospital (02) | DRG 177 ==
LOC: ANHED 04-08 03:18 → ANH2MED 04-08 03:51
PROVIDERS: Internal Medicine Nephrology; Internal Medicine Pulmonary Disease; Nurse Practitioner Acute Care; Admitting Provider Internal Medicine; Emergency Provider Emergency Medicine; PCP Family Medicine; Visit Provider Chiropractor
DX: J15.6 Pneumonia due to other Gram-negative bacteria (principal); J86.9 Pyothorax without fistula; E87.1 Hypo-osmolality and hyponatremia; J94.2 Hemothorax; J90 Pleural effusion, not elsewhere classified; S22.41XA Multiple fractures of ribs, right side, initial encounter for closed fracture; B96.89 Other specified bacterial agents as the cause of diseases classified elsewhere; L27.0 Generalized skin eruption due to drugs and medicaments taken internally; T36.8X5A Adverse effect of other systemic antibiotics, initial encounter; E78.5 Hyperlipidemia, unspecified; E66.01 Morbid (severe) obesity due to excess calories; G47.33 Obstructive sleep apnea (adult) (pediatric); I10 Essential (primary) hypertension; I48.91 Unspecified atrial fibrillation; V86.95XA Unspecified occupant of 3- or 4- wheeled all-terrain vehicle (ATV) injured in nontraffic accident, initial encounter; Z79.01 Long term (current) use of anticoagulants; Z91.148 Patient's other noncompliance with medication regimen for other reason; Z68.38 Body mass index [BMI] 38.0-38.9, adult; Z20.822 Contact with and (suspected) exposure to COVID-19; Z99.89 Dependence on other enabling machines and devices
CPT/HCPCS: 32555; 36415; 70551; 71045; 71046; 71275; 80048; 80053; 80061; 80076; 81001; 82533; 83605; 83615; 83735; 83930; 83935; 83986; 84100; 84145; 84155; 84165; 84300; 84540; 85025; 85380; 85610; 85652; 85730; 86140; 86738; 87015; 87040; 87070; 87075; 87077; 87081; 87102; 87116; 87186; 87205; 87206; 87449; 87637; 87899; 89051; 93005; 96361; 96365; 96366; 96368; 96375; 96376; 99285; A9270; G0378; J0131; J0456; J0696; J1200; J1956; J2020; J2543; J3370; J7030; J7120; Q9967

== ENCOUNTER 2023-05-25 14:34 | Outpatient (CLI) | payer BC, SELFPAY ==
[2023-05-25 15:34] LABS: Basophils Absolute Auto 0.1 K/mm3 (0.0-0.1); Basophils Percent Auto 0.9 % (0.2-1.2); Eosinophils Absolute Auto 0.5 K/mm3 (0-0.3); Eosinophils Percent Auto 4.9 % (0-4.4); Hematocrit 41.3 % (42.0-52.0); Hemoglobin 12.8 g/dL (14.0-18.0); Immature Granulocyte Absolute 0.04 K/mm3 (0.00-0.031); Immature Granulocyte Percent A 0.4 % (0-0.5); Lymphocytes Absolute Auto 1.69 K/mm3 (0.9-3.2); Mean Corpuscular Hemoglobin 29.1 pg (26-34); Mean Corpuscular Volume 93.9 fl (80-100); Mean Platelet Volume 9.6 fl (7.4-10.4); Monocytes Absolute Auto 0.8 K/mm3 (0.1-0.6); Monocytes Percent Auto 7.4 % (2.6-8.5); Neutrophils Absolute Auto 7.5 K/mm3 (1.3-6.7); Neutrophils Percent Auto 70.4 % (45.5-73.1); Platelet Count Result 346 k/mm3 (150-375); Red Cell Distribution Width 14.7 % (11.5-14.5); White Blood Count 10.6 K/mm3 (4.5-10.0)
[2023-05-25 15:44] LABS: Anion Gap 6 mmol/L (8-16); Blood Urea Nitrogen 17 mg/dL (9-20); Carbon Dioxide 30 mmol/L (22-30); Chloride 101 mmol/L (98-107); Estimated Glomerular Filt Rate > 60; Glucose 101 mg/dL (65-110); Potassium 3.7 mmol/L (3.4-5.0); Sodium 137 mmol/L (137-145)
== END 2023-05-25 14:35 | disposition home or self-care (01) ==
PROVIDERS: PCP Family Medicine
DX: Z01.812 Encounter for preprocedural laboratory examination (principal)
CPT/HCPCS: 36415; 80048; 85025

== ENCOUNTER 2025-07-31 18:37 | Inpatient (IN) | payer BC, SELFPAY ==
[2025-07-31] VITALS (27 sets, daily range): BP systolic 117–141; BP diastolic 77–103; PULSE 115–150; RESP 10–34; TEMP 36.7; O2SAT 89–100
--- NOTE | ~2025-07-31 | XR_ITS ---
XR chest 1V portable INDICATION:chest pain . REFERENCE: None FINDINGS: A single AP of the chest demonstrates normal heart size. The lungs are clear. There is no evidence of pneumothorax or pleural effusion. IMPRESSION: No acute pulmonary findings. Reviewed, dictated and finalized at location S.
--- NOTE | ~2025-07-31 | CT_ITS ---
CTA chest PE protocol HISTORY:cp, elevated trop, afib with rvr . COMPARISON: None. TECHNIQUE: Following the noncontrasted director of online merchandising, axial images of the thorax were obtained following infusion of 100 cc of Isovue 370. Post-processing on an independent workstation was performed to reconstruct MIP images for evaluation of the thoracic vasculature. FINDINGS: There is no pulmonary embolism, aortic dissection, thoracic aneurysm or pericardial fluid. The lung parenchyma is clear. No pleural effusion or pneumothorax is noted. There is no axillary, mediastinal or hilar adenopathy. Limited evaluation of the upper abdomen demonstrates no gross abnormalities. Review of bone windows demonstrates no osteoblastic or lytic lesions. IMPRESSION: There is no pulmonary embolism, aortic dissection, pericardial fluid or thoracic aneurysm. No acute lung findings. All CT scans at this facility are performed using low dose modulation techniques as appropriate to perform exam including the following: automated exposure control; use of iterative reconstruction technique; adjustment of the mA and/or kV according to patient size (this includes techniques or standardized protocols for targeted exams where dose is matched to indication/reason for exam). Reviewed, dictated and finalized at location S. IMPRESSION: There is no pulmonary embolism, aortic dissection, pericardial fluid or thoraci c aneurysm. No acute lung findings. All CT scans at this facility are performed using low dose modulation techniqu es as appropriate to perform exam including the following: automated exposure c ontrol; use of iterative reconstruction technique; adjustment of the mA and/or kV according to patient size (this includes techniques or standardized protocol s for targeted exams where dose is matched to indication/reason for exam).
--- NOTE | 2025-07-31 18:50 | ECG_ITS ---
Test Date: 2025-07-31 18:50:28 Measurements Intervals [place] Rate: 151 P: 0 [place]: 0 QRS: -29 QRSD: 110 T: -19 QT: 304 QTc: 482 Interpretive Statements ATRIAL FLUTTER/TACHYCARDIA WITH RAPID VENTRICULAR RESPONSE LEFT VENTRICULAR HYPERTROPHY AND ST-T CHANGE INFERIOR INFARCT, AGE INDETERMINATE ABNORMAL ECG No previous ECG available for comparison Electronically Signed On 08-01-2025 09:11:16 CDT by Luca Mcgowan D.O.
--- NOTE | 2025-07-31 19:00 | ED_ITS ---
HPI - Arrhythmia/Palpitations General Chief Complaint: Arrhythmia/Palpitations <Roslyn Eaton PA-C - Last Filed: 08/02/25 10:07> Stated Complaint: CHEST PAIN, IN AFIB/RVR <Roslyn Eaton PA-C - Last Filed: 08/02/25 10:07> Time Seen by Provider: 07/31/25 18:42 <CAYETANO Vaughn Last Filed: 08/02/25 10:07> Source: patient <CAYETANO Vaughn Last Filed: 08/02/25 10:07> Mode of arrival: EMS <CAYETANO Vaughn Last Filed: 08/02/25 10:07> Limitations: no limitations <CAYETANO Vaughn Last Filed: 08/02/25 10:07> History of Present Illness HPI narrative: This is a 65 year old male that presents to the ER for chest tightness, lightheadedness. Ongoing over the last couple of hours. Reports similar symptoms when he had afib in the past. He is not on any rate controlling medications or anticoagulation currently. Reports he felt so lightheaded he almost passed out and fell. Reports his telesales professional is Dr. Cleaning at [facility] <CAYETANO Vaughn Last Filed: 08/02/25 10:07> Related Data Home Medications: Home Medications ?Medication ?Instructions ?Recorded ?Confirmed ?Last Taken ?Type gabapentin 800 mg tablet 800 mg PO QHS PRN sleep 07/1308/01/25 Unknown History <Roslyn Eaton PA-C - Last Filed: 08/02/25 10:07> Allergies/Adverse Reactions: Allergies Allergy/AdvReac Type Severity Reaction Status Date / Time morphine Allergy Severe Hallucinati Verified 08/01/25 17:56 ng fentanyl AdvReac tachycardia, Verified 08/01/25 17:56 hypertension <CAYETANO Vaughn Last Filed: 08/02/25 10:07> Review of Systems 2 Review of Systems: All systems reviewed & are unremarkable except as noted in HPI and below <CAYETANO Vaughn Last Filed: 08/02/25 10:07> [facility] Past Medical History Medical History: Medical History Atrial fibrillation Hyperlipidemia Obstructive sleep apnea Atrial flutter Morbid obesity with BMI of 40.0-44.9, adult Family history of colon cancer Abdominal hernia without obstruction or gangrene Essential (primary) hypertension <Roslyn Eaton PA-C - Last Filed: 08/02/25 10:07> Surgical History Surgical History: Surgical History H/O hernia repair <Roslyn Eaton PA-C - Last Filed: 08/02/25 10:07> Family History Family History: Family History Father Family history of cardiovascular disease Carcinoma of colon Diabetes mellitus Hypertension Mother Cancer Sibling Hypertension <Roslyn Eaton PA-C - Last Filed: 08/02/25 10:07> Social History Social History: Social History Smoking status: Never smoker Second hand tobacco smoke exposure: Yes Alcohol intake: current Drinks per week: 3 Substance use: never Substance use type: does not use Lack of Transportation: No Lack of Food: Never True Current Housing: I Have Housing Concerned About Future Housing: No Difficulty Paying Gas/Electric Bills: No Difficulty Paying for Meds: No Currently Unemployed: No Education: Associate Degree Difficulty w/ Childcare or Family Care: No Living arrangements: with family Occupation/Education: occupation Additional occupation/education comments: sales Gender identity (if verbalized by the patient): Male Spiritual care concerns: No <CAYETANO Vaughn Last Filed: 08/02/25 10:07> Exam 2 Narrative: GENERAL: Well-appearing, well-nourished, and in no acute distress. HEAD: Normocephalic, atraumatic. EYES: PERRLA and EOMI. ENT: Nares clear, no rhinorrhea or epistaxis. Mucous membranes moist. Oropharynx without tonsillar hypertrophy exudate or other lesions. NECK: Supple. No adenopathy or masses. CHEST: Clear to auscultation. No respiratory distress. No wheezes rales or rhonchi HEART: Irregularly irregular. No murmur heard. Normal peripheral pulses. EXTREMITIES: Normal range of motion. No edema. SKIN: Warm, dry, no rash. NEURO: No focal deficits. Alert and oriented x3. PSYCH: Normal mood and affect <Roslyn Eaton PA-C - Last Filed: 08/02/25 10:07> Course Course Emergency Course: Patient care signed over to ok pending transfer to [facility] for continued care. Patient is in AFib RVR with rising troponins. Initially refuse heparin drip. On Lovenox injection right now. Interventional Cardiology was spoken to with no need for catheterization at this juncture without EKG evidence of STEMI or ongoing chest pain. Awaiting transfer to [facility] at this time. Patient remains hemodynamically stable and currently rate controlled with a rate of 86 on a diltiazem drip and blood pressure 117/86 with no ongoing chest pain. <Juan Alberto Ortega MD - Last Filed: 08/02/25 02:09> Patient care signed over to ok pending transfer to [facility] for continued care. Patient is in AFib RVR with rising troponins. Initially refuse heparin drip. On Lovenox injection right now. Interventional Cardiology was spoken to with no need for catheterization at this juncture without EKG evidence of STEMI or ongoing chest pain. Awaiting transfer to [facility] at this time. Patient remains hemodynamically stable and currently rate controlled with a rate of 86 on a diltiazem drip and blood pressure 117/86 with no ongoing chest pain. RICK: Pt signed out pending t/f to [facility]. The patient called his telesales professional and found out that his telesales professional is no longer working at [facility]. Patient is now amenable to being admitted to our hospital and being treated for his atrial fibrillation with RVR and elevated troponins. On re-evaluation the patient is resting comfortably in bed. No chest pain. Patient will be placed in the IMU for further management. Case discussed w/ Dr. morataya patient placed on a heparin drip. <Owen Miles MD - Last Filed: 08/01/25 14:59> MANAGER EPIC/PA Physician Supervision This visit was performed by both a physician and an APC. I performed all aspects of the MDM as documented. <Juan Alberto Ortega MD - Last Filed: 08/02/25 02:09> Consultations Consultation #1: Patient has been accepted his transfer to [facility] per his request. Awaiting bed assignment <Roslyn Eaton PA-C - Last Filed: 08/02/25 10:07> Date: 07/31/25 <Roslyn Eaton PA-C - Last Filed: 08/02/25 10:07> Consultation #2: Spoke with Dr. Mclean interventional cardiology. With no active chest pain, acute ST changes, no need for intervention at this time. Recommends anticoagulation, continue transfer to where his telesales professional is <Roslyn Eaton PA-C - Last Filed: 08/02/25 10:07> Date: 07/31/25 <Roslyn Eaton PA-C - Last Filed: 08/02/25 10:07> Vital Signs Vital signs: Vital Signs Temperature 98.0 F 07/31/25 18:51 Pulse Rate 150 H 07/31/25 18:51 Respiratory Rate 34 H 07/31/25 18:51 Blood Pressure 123/103 H 07/31/25 18:51 Pulse Oximetry 100 07/31/25 18:51 Oxygen Delivery Room Air 07/31/25 18:51 Temperature 97.5 F L 08/02/25 08:00 Pulse Rate 90 08/02/25 08:00 Respiratory Rate 18 08/02/25 08:00 Blood Pressure 143/91 H 08/02/25 08:00 Pulse Oximetry 95 08/02/25 08:00 Oxygen Delivery Room Air 08/02/25 04:00 Fraction of Inspired Oxygen 21 08/02/25 04:00 <Roslyn Eaton PA-C - Last Filed: 08/02/25 10:07> Vital Signs Temperature 98.0 F 07/31/25 18:51 Pulse Rate 150 H 07/31/25 18:51 Respiratory Rate 34 H 07/31/25 18:51 Blood Pressure 123/103 H 07/31/25 18:51 Pulse Oximetry 100 07/31/25 18:51 Oxygen Delivery Room Air 07/31/25 18:51 Temperature 97.5 F L 08/02/25 08:00 Pulse Rate 90 08/02/25 08:00 Respiratory Rate 18 08/02/25 08:00 Blood Pressure 143/91 H 08/02/25 08:00 Pulse Oximetry 95 08/02/25 08:00 Oxygen Delivery Room Air 08/02/25 04:00 Fraction of Inspired Oxygen 21 08/02/25 04:00 <Juan Alberto Ortega MD - Last Filed: 08/02/25 02:09> Vital Signs Temperature 98.0 F 07/31/25 18:51 Pulse Rate 150 H 07/31/25 18:51 Respiratory Rate 34 H 07/31/25 18:51 Blood Pressure 123/103 H 07/31/25 18:51 Pulse Oximetry 100 07/31/25 18:51 Oxygen Delivery Room Air 07/31/25 18:51 Temperature 97.5 F L 08/02/25 08:00 Pulse Rate 90 08/02/25 08:00 Respiratory Rate 18 08/02/25 08:00 Blood Pressure 143/91 H 08/02/25 08:00 Pulse Oximetry 95 08/02/25 08:00 Oxygen Delivery Room Air 08/02/25 04:00 Fraction of Inspired Oxygen 21 08/02/25 04:00 <Owen Miles MD - Last Filed: 08/01/25 14:59> MDM - Arrhythmia/Palpitations MDM Narrative Medical decision making narrative: Patient presents to the ER for chest tightness, near syncope. Noted to be in AFib with RVR with rates in the 150s upon arrival. Given bolus diltiazem and started on a diltiazem drip. Patient is afebrile and nontoxic appearing. Other vitals are stable. CBC with leukocytosis to 16.8. Metabolic panel without concerning findings. CTA chest PE obtained for further evaluation. No pulmonary embolism, aortic dissection or aneurysm. EKG showing nonspecific ST changes. Baseline troponin elevated at 2.87. Spoke with Dr. Mclean interventional cardiology. With no active chest pain, acute ST changes, no need for intervention at this time. Recommends anticoagulation, continue transfer to where his telesales professional is. Patient has been accepted at [facility] per his request. He is refusing heparin drip at this time, but is ammendable to a dose of Lovenox, care taken over by Dr. Ortega at shift change <Roslyn Eaton PA-C - Last Filed: 08/02/25 10:07> Differential Diagnosis Differential diagnosis: Likely sinus tachycardia, artial fibrillation, artial flutter and supraventricular tachycardia <Roslyn Eaton PA-C - Last Filed: 08/02/25 10:07> Lab Data Attestation: I reviewed the patient's lab results. <Roslyn Eaton PA-C - Last Filed: 08/02/25 10:07> Result diagrams: 08/02/25 06:53 08/02/25 06:53 <Roslyn Eaton PA-C - Last Filed: 08/02/25 10:07> Labs: Lab Results 07/31/25 07/31/25 08/01/25 Range/Units 18:55 21:58 00:36 WBC 16.8 H (4.5-10.0) K/mm3 RBC 4.77 (4.6-6.20) M/mm3 Hgb 14.8 (14.0-18.0) g/dL Hct 43.8 (42.0-52.0) % MCV 91.8 (80-100) fl MCH 31.0 (26-34) pg MCHC 33.8 (32-36) g/dl RDW 12.0 (11.5-14.5) % Plt Count 301 (150-375) k/mm3 MPV 9.7 (7.4-10.4) fl Immature Gran % (Auto) 0.5 (0-0.5) % Neut % (Auto) 83.6 H (45.5-73.1) % Lymph % (Auto) 8.8 L (18.3-44.2) % Pershing % (Auto) 5.7 (2.6-8.5) % Eos % (Auto) 1.0 (0-4.4) % Baso % (Auto) 0.4 (0.2-1.2) % Lymph # (Auto) 1.48 (0.9-3.2) K/mm3 Pershing # (Auto) 1.0 H (0.1-0.6) K/mm3 Eos # (Auto) 0.2 (0-0.3) K/mm3 Baso # (Auto) 0.1 (0.0-0.1) K/mm3 Abs Immat Gran (auto) 0.09 H (0.00-0.031) K/mm3 Absolute Neuts (auto) 14.0 H (1.3-6.7) K/mm3 Absolute Nucleated RBC 0.000 (0.0-0.012) K/mm3 Nucleated RBC % 0.0 (0.0-0.2) % PT 13.0 (11.1-14.7) Seconds INR 1.0 APTT 25.5 (22.3-36.8) Seconds D-Dimer < 0.27 (<0.48) ug/mL Sodium 134 L (137-145) mmol/L Potassium 3.2 L (3.4-5.0) mmol/L Chloride 99 (98-107) mmol/L Carbon Dioxide 27 (22-30) mmol/L Anion Gap 8 (4-12) mmol/L BUN 19 (9-20) mg/dL Creatinine 1.08 (0.7-1.3) mg/dL Estim Creat Clear Calc 81 ml/min Estimated GFR > 60 (59 - ) Glucose 126 H (65-110) mg/dL Calcium 8.9 (8.4-10.2) mg/dL Magnesium 2.0 (1.6-2.3) mg/dL Total Bilirubin 0.4 (0.2-1.3) mg/dL AST 49 (17-59) U/L ALT 35 (6-50) U/L Alkaline Phosphatase 78 (38-126) U/L Troponin I 2.870 H* 8.770 H* D 11.600 H* D (0.000-0.034) ng/mL Total Protein 6.8 (6.3-8.2) g/dL Albumin 3.9 (3.5-5.1) g/dL Lipase 55 (23-300) U/L <Roslyn Eaton PA-C - Last Filed: 08/02/25 10:07> Lab Results 07/31/25 07/31/25 08/01/25 Range/Units 18:55 21:58 00:36 WBC 16.8 H (4.5-10.0) K/mm3 RBC 4.77 (4.6-6.20) M/mm3 Hgb 14.8 (14.0-18.0) g/dL Hct 43.8 (42.0-52.0) % MCV 91.8 (80-100) fl MCH 31.0 (26-34) pg MCHC 33.8 (32-36) g/dl RDW 12.0 (11.5-14.5) % Plt Count 301 (150-375) k/mm3 MPV 9.7 (7.4-10.4) fl Immature Gran % (Auto) 0.5 (0-0.5) % Neut % (Auto) 83.6 H (45.5-73.1) % Lymph % (Auto) 8.8 L (18.3-44.2) % Pershing % (Auto) 5.7 (2.6-8.5) % Eos % (Auto) 1.0 (0-4.4) % Baso % (Auto) 0.4 (0.2-1.2) % Lymph # (Auto) 1.48 (0.9-3.2) K/mm3 Pershing # (Auto) 1.0 H (0.1-0.6) K/mm3 Eos # (Auto) 0.2 (0-0.3) K/mm3 Baso # (Auto) 0.1 (0.0-0.1) K/mm3 Abs Immat Gran (auto) 0.09 H (0.00-0.031) K/mm3 Absolute Neuts (auto) 14.0 H (1.3-6.7) K/mm3 Absolute Nucleated RBC 0.000 (0.0-0.012) K/mm3 Nucleated RBC % 0.0 (0.0-0.2) % PT 13.0 (11.1-14.7) Seconds INR 1.0 APTT 25.5 (22.3-36.8) Seconds D-Dimer < 0.27 (<0.48) ug/mL Sodium 134 L (137-145) mmol/L Potassium 3.2 L (3.4-5.0) mmol/L Chloride 99 (98-107) mmol/L Carbon Dioxide 27 (22-30) mmol/L Anion Gap 8 (4-12) mmol/L BUN 19 (9-20) mg/dL Creatinine 1.08 (0.7-1.3) mg/dL Estim Creat Clear Calc 81 ml/min Estimated GFR > 60 (59 - ) Glucose 126 H (65-110) mg/dL Calcium 8.9 (8.4-10.2) mg/dL Magnesium 2.0 (1.6-2.3) mg/dL Total Bilirubin 0.4 (0.2-1.3) mg/dL AST 49 (17-59) U/L ALT 35 (6-50) U/L Alkaline Phosphatase 78 (38-126) U/L Troponin I 2.870 H* 8.770 H* D 11.600 H* D (0.000-0.034) ng/mL Total Protein 6.8 (6.3-8.2) g/dL Albumin 3.9 (3.5-5.1) g/dL Lipase 55 (23-300) U/L <Juan Alberto Ortega MD - Last Filed: 08/02/25 02:09> Lab Results 07/31/25 07/31/25 08/01/25 Range/Units 18:55 21:58 00:36 WBC 16.8 H (4.5-10.0) K/mm3 RBC 4.77 (4.6-6.20) M/mm3 Hgb 14.8 (14.0-18.0) g/dL Hct 43.8 (42.0-52.0) % MCV 91.8 (80-100) fl MCH 31.0 (26-34) pg MCHC 33.8 (32-36) g/dl RDW 12.0 (11.5-14.5) % Plt Count 301 (150-375) k/mm3 MPV 9.7 (7.4-10.4) fl Immature Gran % (Auto) 0.5 (0-0.5) % Neut % (Auto) 83.6 H (45.5-73.1) % Lymph % (Auto) 8.8 L (18.3-44.2) % Pershing % (Auto) 5.7 (2.6-8.5) % Eos % (Auto) 1.0 (0-4.4) % Baso % (Auto) 0.4 (0.2-1.2) % Lymph # (Auto) 1.48 (0.9-3.2) K/mm3 Pershing # (Auto) 1.0 H (0.1-0.6) K/mm3 Eos # (Auto) 0.2 (0-0.3) K/mm3 Baso # (Auto) 0.1 (0.0-0.1) K/mm3 Abs Immat Gran (auto) 0.09 H (0.00-0.031) K/mm3 Absolute Neuts (auto) 14.0 H (1.3-6.7) K/mm3 Absolute Nucleated RBC 0.000 (0.0-0.012) K/mm3 Nucleated RBC % 0.0 (0.0-0.2) % PT 13.0 (11.1-14.7) Seconds INR 1.0 APTT 25.5 (22.3-36.8) Seconds D-Dimer < 0.27 (<0.48) ug/mL Sodium 134 L (137-145) mmol/L Potassium 3.2 L (3.4-5.0) mmol/L Chloride 99 (98-107) mmol/L Carbon Dioxide 27 (22-30) mmol/L Anion Gap 8 (4-12) mmol/L BUN 19 (9-20) mg/dL Creatinine 1.08 (0.7-1.3) mg/dL Estim Creat Clear Calc 81 ml/min Estimated GFR > 60 (59 - ) Glucose 126 H (65-110) mg/dL Calcium 8.9 (8.4-10.2) mg/dL Magnesium 2.0 (1.6-2.3) mg/dL Total Bilirubin 0.4 (0.2-1.3) mg/dL AST 49 (17-59) U/L ALT 35 (6-50) U/L Alkaline Phosphatase 78 (38-126) U/L Troponin I 2.870 H* 8.770 H* D 11.600 H* D (0.000-0.034) ng/mL Total Protein 6.8 (6.3-8.2) g/dL Albumin 3.9 (3.5-5.1) g/dL Lipase 55 (23-300) U/L <Owen Miles MD - Last Filed: 08/01/25 14:59> Imaging Data Radiologist's impression: ITS Impressions Chest X-Ray 07/31/25 19:38 IMPRESSION: No acute pulmonary findings. Chest CTA 07/31/25 21:04 IMPRESSION: There is no pulmonary embolism, aortic dissection, pericardial fluid or thoracic aneurysm. No acute lung findings. All CT scans at this facility are performed using low dose modulation techniques as appropriate to perform exam including the following: automated exposure control; use of iterative reconstruction technique; adjustment of the mA and/or kV according to patient size (this includes techniques or standardized protocols for targeted exams where dose is matched to indication/reason for exam). <Roslyn Eaton PA-C - Last Filed: 08/02/25 10:07> Critical Care Time Critical Care Time Critical Care Time: Yes <Roslyn Eaton PA-C - Last Filed: 08/02/25 10:07> Total Critical Care Time: 35 <Roslyn Eaton PA-C - Last Filed: 08/02/25 10:07> Discharge Plan Discharge Clinical Impression: Atrial fibrillation with RVR, Elevated troponin <Roslyn Eaton PA-C - Last Filed: 08/02/25 10:07> Patient Disposition: Still a Patient <CAYETANO Vaughn Last Filed: 08/02/25 10:07> Condition: Serious <Roslyn Eaton PA-C - Last Filed: 08/02/25 10:07>
[2025-07-31 19:03] LABS: Hematocrit 43.8 % (42.0-52.0); Hemoglobin 14.8 g/dL (14.0-18.0); Immature Granulocyte Percent A 0.5 % (0-0.5); Lymphocytes Absolute Auto 1.48 K/mm3 (0.9-3.2); Mean Corpuscular HGB Conc 33.8 g/dl (32-36); Mean Corpuscular Hemoglobin 31.0 pg (26-34); Mean Corpuscular Volume 91.8 fl (80-100); Nucleated Red Blood Cells Absolute Auto 0.000 K/mm3 (0.0-0.012); Nucleated Red Blood Cells Perc 0.0 % (0.0-0.2); Platelet Count Result 301 k/mm3 (150-375); Red Blood Count 4.77 M/mm3 (4.6-6.20); White Blood Count 16.8 K/mm3 (4.5-10.0)
[2025-07-31 19:23] LABS: Alanine Aminotransferase 35 U/L (6-50); Albumin Level 3.9 g/dL (3.5-5.1); Alkaline Phosphatase 78 U/L (38-126); Anion Gap 8 mmol/L (4-12); Aspartate Amino Transferase 49 U/L (17-59); Bilirubin,Total 0.4 mg/dL (0.2-1.3); Blood Urea Nitrogen 19 mg/dL (9-20); Calcium 8.9 mg/dL (8.4-10.2); Carbon Dioxide 27 mmol/L (22-30); Chloride 99 mmol/L (98-107); Estimated CRCL calculation 81 ml/min; Estimated Glomerular Filt Rate > 60; Glucose 126 mg/dL (65-110); Lipase 55 U/L (23-300); Potassium 3.2 mmol/L (3.4-5.0); Sodium 134 mmol/L (137-145); Total Protein 6.8 g/dL (6.3-8.2)
[2025-07-31] MEDS: dilTIAZem 100 MG/100 ML 100 MG/100 ML BAG IV CONT (19:27)
[2025-07-31] MEDS: POTASSIUM CHLORIDE 20 MEQ ER TABLET 40 MEQ PO (19:31)
--- NOTE | 2025-07-31 19:33 | PC.NURSE ---
Patient refusing CT head. Patient states he did not hit his head and does not want to pay for scan. PA notified.
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
--- OUTSIDE RECORDS SUMMARY | 2025-07-31 19:33 | XMS_ITS | Clinical Summary ---
Author Organization [facility] Address [address] [place] [address] Care Team Providers Care Client Solutions Director Name Role Phone Unavailable Primary Care Provider Unavailabl e Allergies Active Allergy Reactions Criticality Noted Date Comments Morphine Hallucinations,Unknown High 07/05/2012 Vancomycin Hives Medium 04/12/2023 Red man syndrome March 2023 Social History Tobacco Use Types Packs/Day Years Used Date Smoking Tobacco: Never Sex and Gender Information Value Date Recorded Sex Assigned at Not on file Legal Sex Male 10:25 PM CDT Gender Identity Not on file Sexual Orientation Not on file Last Filed Vital Signs Vital Sign Reading Time Taken Comments Blood Pressure 160/104 03/29/2024 12:20 PM CDT Pulse 75 03/29/2024 12:20 PM CDT Temperature 36.6 C (97.8 F) 03/29/2024 12:14 PM CDT Respiratory Rate 14 03/29/2024 12:14 PM CDT Oxygen Saturation 95% 03/29/2024 12:20 PM CDT Inhaled Oxygen Concentration - - Weight 89 kg (196 lb 3.4 oz) 03/29/2024 12:15 PM CDT Height 175.3 cm (5' 9) 03/29/2024 12:14 PM CDT Body Mass Index 28.98 03/29/2024 12:14 PM CDT Plan of Treatment Health Maintenance Due Date Last Done Comments Colorectal Cancer Screening Colonoscopy (10 Years) 1960 Hepatitis C 1978 Pneumococcal Vaccine: 50+ Years (1 of 1 - PCV) 2010 Zoster Vaccines (1 of 2) 2010 COVID-19 Vaccine ( - 2024-2 6 season) 2025 10/15/2021, 01/27/2021, 01/10/2021 Influenza Adult (#1) 2025 DTaP, Tdap and Td Vaccines ( 2 - Td or Tdap) 07/25/2032 07/25/2022 RSV Immunization or 60+ Years (1 - 1-dose 75+ series) 2035 Hepatitis A Vaccines Aged Out No long er eligible based on patient's age to complete this topic Meningococcal B Vaccine Aged Out No l onger eligible based on patient's age to complete this topic Meningococcal Vaccine Aged Out No yanna yasir eligible based on patient's age to complete this topic RSV Immunizations Under 20 Months Aged Out No longer eligible b ased on patient's age to complete this topic Insurance [facility]
--- OUTSIDE RECORDS SUMMARY | 2025-07-31 19:33 | XMS_ITS | Clinical Summary ---
Author Organization [facility] Address [address] [place] [address] Care Team Providers Care Test Puller Name Role Phone Eliseo Field DO Primary Care Provider Quentin ABDUL MD, Mykel Unavailable [phone] Source Comments [facility],non-owned Affiliates and Associated Physician Practices is amultiple site organization consisting of ambulatory clinics and hospital sitesin [place], [place], [place] and [place]. This disclosure is being madepursuant to the Care Everywhere program and may not contain all information available regarding this patient. Last updated 18.[facility] Allergies Active Allergy Reactions Criticality Noted Date Comments Morphine 07/05/2012 Medications * Be aware that medications may not be up to date on this document. Alwaysverify current medications with the patient. hydrocodone-ibup rofen (VICOPROFEN) 7.5-200 MG TABS Take 1 Tab by mouth every 6 hours as needed. 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 Gender Identity Not on file Sexual Orientation Not on file Last Filed Vital Signs Vital Sign Reading Time Taken Comments Blood Pressure 131/67 05/21/2013 3:00 PM CDT Pulse 57 05/21/2013 3:00 PM CDT Temperature 36.8 C (98.2 F) 05/21/2013 9:50 AM CDT Respiratory Rate 20 05/21/2013 3:00 PM CDT Oxygen Saturation 95% 05/21/2013 3:00 PM CDT Inhaled Oxygen Concentration - - Weight 117 kg (258 lb) 05/21/2013 9:50 AM CDT Height 182.9 cm (6') 05/21/2013 9:50 AM CDT Body Mass Index 34.99 05/21/2013 9:50 AM CDT Plan of Treatment Health Maintenance Due Date Last Done Comments COLOGUARD (AGES 45-75) - COL ON CA SCREENING 1960 COLON MONITORING 1960 COLONOSCOPY - COLON CA SCREENING 1960 CT COLONOGRAPHY - COLON CA SCREENING 1960 Colorectal Cancer Screening 1960 FIT - COLON CA SCREENING 1960 FLEX SIG - COLON CA SCREENING 1960 LIPID TESTING 1960 HIV SCREENING 1975 HEPATITIS C SCREENING 05/10/1978 DTAP/TDAP/TD VACCINES (1 - Tdap) 1979 PNEUMOCOCCAL VACCINE 50+ (1 of 1 - PCV) 2010 ZOSTER VACCINE (1 of 2) 2010 DEPRESSION SCREENING 10/12/2024 COVID-19 VACCINE (1 - 2023-2 5 season) 2025 INFLUENZA VACCINE (#1) 2025 Respiratory Syncytial Virus (RSV) Vaccine Pt: or over 60 yrs (1 - 1-dose 75+ series) 2035 HEPATITIS B VACCINE Aged Out No longe r eligible based on patient's age to complete this topic HIB VACCINE Aged Out No longer eligi ble based on patient's age to complete this topic HPV VACCINE Aged Out No longer eligi ble based on patient's age to complete this topic MENINGOCOCCAL (Group B) VACC INE SHARED DECISION-MAKING Aged Out No longer eligibl e based on patient's age to complete this topic MENINGOCOCCAL GROUPS A/C/Y/W VACCINE Aged Out No longer eligible b ased on patient's age to complete this topic Insurance AETNA AETNA AETNA Care Teams Test Puller Relationship Specialty Start Date End Date Eliseo Field DO PCP - General Internal Medicine 07/05/12 Mykel Saavedra IV, MD Orthopedic Surgery 07/05/12
[2025-07-31 19:39] LABS: INR 1.0; Partial Thromboplastin Time 25.5 Seconds (22.3-36.8); Prothrombin Time 13.0 Seconds (11.1-14.7)
[2025-07-31 19:40] LABS: Troponin I 2.870 ng/mL (0.000-0.034)
[2025-07-31 20:13] LABS: Magnesium 2.0 mg/dL (1.6-2.3)
--- NOTE | 2025-07-31 21:50 | ECG_ITS ---
Test Date: 2025-07-31 21:53:30 Measurements Intervals [place] Rate: 126 P: 0 NH: 0 QRS: -36 QRSD: 105 T: 39 QT: 311 QTc: 451 Interpretive Statements ATRIAL FLUTTER/TACHYCARDIA WITH RAPID VENTRICULAR RESPONSE LEFT AXIS DEVIATION CONSIDER ANTERIOR INFARCT, AGE INDETERMINATE BORDERLINE ST-T WAVE ABNORMALITY- INF/LAT LEADS ABNORMAL ECG No previous ECG available for comparison Electronically Signed On 08-01-2025 06:08:15 CDT by Luca Mcgowan D.O.
[2025-07-31 22:34] LABS: Troponin I 8.770 ng/mL (0.000-0.034)
--- NOTE | 2025-07-31 23:00 | PC.NURSE ---
Patient refusing heparin drip and IV insertion at this time. He states he would rather wait until he is at [facility].
[2025-07-31] MEDS: ENOXAPARIN 60 MG/0.6 ML SYRINGE 45 MG SUB-Q (23:32)
[2025-07-31] MEDS: ENOXAPARIN 80 MG/0.8 ML SYRINGE SUB-Q (23:33)
--- NOTE | 2025-07-31 23:57 | PC.NURSE ---
pt is refusing to have the residential monitor leads on him. states staff at [facility] does not know what they are doing because the machine is constantly beeping. pt educated on importance of staff being able to monitor his heart rate due to him being in afib rvr and on the cardizem gtt.
[2025-08-01] VITALS (35 sets, daily range): BP systolic 109–163; BP diastolic 56–140; PULSE 85–129; RESP 10–26; TEMP 36.4–36.8; O2SAT 93–100; BMI 40.1
--- NOTE | 2025-08-01 00:47 | ECG_ITS ---
Test Date: 2025-08-01 00:52:34 Measurements Intervals [place] Rate: 109 P: 262 CT: 160 QRS: -40 QRSD: 104 T: 59 QT: 330 QTc: 445 Interpretive Statements ATRIAL FLUTTER/TACHYCARDIA WITH RAPID VENTRICULAR RESPONSE LEFT VENTRICULAR HYPERTROPHY AND ST-T CHANGE INFERIOR INFARCT, AGE INDETERMINATE CONSIDER ANTERIOR INFARCT, AGE INDETERMINATE ABNORMAL ECG Compared to ECG 07/31/2025 21:53:30 HEART RATE HAS DECREASED Electronically Signed On 08-01-2025 06:07:28 CDT by Luca Mcgowan D.O.
[2025-08-01 01:10] LABS: Troponin I 11.600 ng/mL (0.000-0.034)
--- NOTE | 2025-08-01 01:46 | PC.NURSE ---
pt is upset with [facility] staff that [facility] has not assigned him a bed to be transferred. pt educated on the transfer process and [facility] er waiting on [facility] transfer center to inform us on his bed assignment
[2025-08-01] MEDS: dilTIAZem 100 MG/100 ML 100 MG/100 ML BAG 15 MG (02:54)
--- NOTE | 2025-08-01 07:46 | PC.NURSE ---
Pt offered hospital gown, pt politely declined. Pt reports he is warm and would rather not have a shirt on.
--- NOTE | 2025-08-01 07:47 | PC.NURSE ---
Pt expresses wishes to not have bp cuff on continuously, agreeable to intermittent vital sign checks.
--- NOTE | 2025-08-01 09:19 | PC.NURSE ---
Roslyn with [facility] transfer center called for update on pt status. Update given. She states pt is still on waitlist and will call back with update and bed once one is available.
[2025-08-01] MEDS: dilTIAZem 100 MG/100 ML 100 MG/100 ML BAG 15 MG IV CONT ×2 (09:51→16:12)
--- NOTE | 2025-08-01 10:59 | PC.NURSE ---
Pt called cardiology office with [facility] and was informed his medical insurance biller was no longer at [facility]. Pt states concerns with transfer with E, made aware. warp hand made aware.
--- NOTE | 2025-08-01 13:30 | PC.NURSE ---
Meal tray was ordered for pt.
--- NOTE | 2025-08-01 14:40 | PM.IMHP ---
H&P: HPI History of Present Illness Date/Time: 08/01/25 14:40 Chief Complaint: Lightheadedness, Chest Pain Narrative: 65 y/o M with PMH of HLD, atrial flutter/atrial fibrillation (previously cardioverted x1), GIBRAN on CPAP, and hypertension presents here with lightheadedness and chest pain. The patient presents here from home via EMS on 07/31. He reported at that time that he developed lightheadedness, dizziness, and chest pain around 4:00 p.m. on Thursday (07/31). ?He described the chest discomfort has pressure across the top of his chest, nonradiating, constant, and lasted for 45 minutes. ?Did feel weak and had to lower himself to his knee but did not pass out. Pain resolved after he laid down/sat down without further medications or intervention.? He then reports the pain returned around 5:15 p.m. while he was laying down. He described the pain during the 2nd episode as similar to the first episode. Pain resolved by the time EMS arrived. ?He has a cardiac history significant for atrial fibrillation, not currently on rate controlling medications or anticoagulation. He was previously cardioverted and eventually taken off his medications.?Patient has previously followed with a retail center receptionist, Dr. Cleaning at [facility].? This prompted an initial transfer to [facility]. ?However his retail center receptionist no longer practices at [facility], now at [facility]. ?Patient now requesting to stay at [facility] verses transfer to [facility].? He currently reports no reoccurrence of chest pain/tightness. Denies nausea, vomiting, palpitations, or shortness of breath. Initial VS at presentation: ?98? F, HR 150, R 34, 123/103, and 100% on RA.? HR now 96, BP 163/94. ED workup showed: ?WBC 16.8, no anemia, normal coags, negative D-dimer, sodium 134, potassium 3.2, creatinine 1.08 and GFR >60, glucose 126, initial troponin 2.87, peak at 11.6 thus far.? CXR showed no acute pulmonary findings.? Chest CTA showed no PE, dissection, pericardial fluid, or thoracic aneurysm, no acute lung findings.? Initial EKG showed atrial flutter/tachycardia with RVR, LVH and ST-T change, rate 151. Review of Systems Review of Systems: All systems reviewed & are unremarkable except as noted in HPI and below [facility] Past Medical History Medical History Atrial fibrillation Hyperlipidemia Obstructive sleep apnea Atrial flutter Morbid obesity with BMI of 40.0-44.9, adult Family history of colon cancer Abdominal hernia without obstruction or gangrene Essential (primary) hypertension Surgical History Surgical History H/O hernia repair Family History Family History Father Family history of cardiovascular disease Carcinoma of colon Diabetes mellitus Hypertension Mother Cancer Sibling Hypertension Social History Social History Smoking status: Never smoker Second hand tobacco smoke exposure: Yes Alcohol intake: current Drinks per week: 3 Substance use: never Substance use type: does not use Lack of Transportation: No Lack of Food: Never True Current Housing: I Have Housing Concerned About Future Housing: No Difficulty Paying Gas/Electric Bills: No Difficulty Paying for Meds: No Currently Unemployed: No Education: Associate Degree Difficulty w/ Childcare or Family Care: No Living arrangements: with family Occupation/Education: occupation Additional occupation/education comments: sales Gender identity (if verbalized by the patient): Male Spiritual care concerns: No Meds Home Medications and Allergies Home Medications ?Medication ?Instructions ?Recorded ?Confirmed ?Type CPAP Pressure Settings #1 ea 05/18/23 08/01/25 Rx Held on 08/01/25. Instructions: Patient Condition rosuvastatin 20 mg tablet 20 mg PO DAILY #90 tabs 08/06/23 07/31/25 Rx pantoprazole 40 mg tablet,delayed 40 mg PO DAILY #90 tabs 06/06/25 07/31/25 Rx release losartan 25 mg tablet 25 mg PO DAILY #90 tabs 07/18/25 07/31/25 Rx tirzepatide (weight loss) 10 10 mg (0.5 mL) subcut WEEKLY #2 mL 07/24/25 08/01/25 Rx mg/0.5 mL subcutaneous solution (Zepbound) gabapentin 800 mg tablet 800 mg PO QHS PRN sleep 08/01/25 08/01/25 History Allergies Allergy/AdvReac Type Severity Reaction Status Date / Time morphine Allergy Severe Hallucinati Verified 08/01/25 17:56 ng fentanyl AdvReac tachycardia, Verified 08/01/25 17:56 hypertension Vital Signs Vital Signs - 24 hr 07/31/25 18:51 07/31/25 19:02 07/31/25 19:15 Temperature 98.0 F Pulse Rate 150 H 143 H 115 H Respiratory Rate 34 H 25 H 22 H Blood Pressure 123/103 H Pulse Oximetry 100 92 Oxygen Delivery Room Air 07/31/25 19:16 07/31/25 19:27 07/31/25 19:27 Temperature Pulse Rate 115 H 122 H Respiratory Rate 21 H Blood Pressure 123/86 123/86 Pulse Oximetry 90 Oxygen Delivery Room Air 07/31/25 19:30 07/31/25 19:31 07/31/25 19:32 Temperature Pulse Rate 122 H 123 H 123 H Respiratory Rate 17 20 23 H Blood Pressure 117/77 130/91 H Pulse Oximetry 94 94 94 Oxygen Delivery 07/31/25 20:01 07/31/25 20:23 07/31/25 20:31 Temperature Pulse Rate 118 H 124 H 126 H Respiratory Rate 34 H 25 H 24 H Blood Pressure Pulse Oximetry 94 95 96 Oxygen Delivery 07/31/25 20:40 07/31/25 20:59 07/31/25 21:00 Temperature Pulse Rate 126 H 122 H 122 H Respiratory Rate 18 Blood Pressure 130/101 H 129/81 Pulse Oximetry 89 L Oxygen Delivery 07/31/25 21:01 07/31/25 21:15 07/31/25 21:16 Temperature Pulse Rate 123 H 124 H 124 H Respiratory Rate 10 L 21 H 16 Blood Pressure 122/86 Pulse Oximetry 93 95 91 Oxygen Delivery 07/31/25 21:30 07/31/25 21:31 07/31/25 21:40 Temperature Pulse Rate 126 H 127 H 126 H Respiratory Rate 17 14 Blood Pressure 120/93 H 120/93 H Pulse Oximetry 96 95 Oxygen Delivery 07/31/25 21:58 07/31/25 22:00 07/31/25 22:17 Temperature Pulse Rate 128 H 128 H 126 H Respiratory Rate 20 21 H 21 H Blood Pressure Pulse Oximetry 95 94 93 Oxygen Delivery 07/31/25 22:27 07/31/25 22:37 07/31/25 22:45 Temperature Pulse Rate 124 H 125 H 124 H Respiratory Rate 20 20 23 H Blood Pressure 141/99 H 141/102 H Pulse Oximetry 94 Oxygen Delivery 07/31/25 22:46 08/01/25 00:00 08/01/25 00:16 Temperature Pulse Rate 126 H 129 H 127 H Respiratory Rate 14 14 17 Blood Pressure 141/101 H 119/95 H 151/79 H Pulse Oximetry 100 100 98 Oxygen Delivery 08/01/25 00:30 08/01/25 00:45 08/01/25 01:00 Temperature Pulse Rate 117 H 91 110 H Respiratory Rate 17 19 21 H Blood Pressure 109/69 110/56 L 111/61 Pulse Oximetry 98 99 100 Oxygen Delivery 08/01/25 01:15 08/01/25 01:31 08/01/25 01:46 Temperature Pulse Rate 98 94 125 H Respiratory Rate 24 H 16 25 H Blood Pressure 127/87 110/74 153/140 H Pulse Oximetry 99 97 Oxygen Delivery 08/01/25 02:52 08/01/25 02:53 08/01/25 02:54 Temperature Pulse Rate 108 H 114 H 114 H Respiratory Rate Blood Pressure 117/85 117/86 117/86 Pulse Oximetry Oxygen Delivery 08/01/25 03:00 08/01/25 04:30 08/01/25 04:39 Temperature Pulse Rate 106 H 85 125 H Respiratory Rate 16 14 26 H Blood Pressure 122/91 H 115/71 115/71 Pulse Oximetry 95 95 Oxygen Delivery 08/01/25 04:45 08/01/25 05:40 08/01/25 06:00 Temperature Pulse Rate 128 H 89 90 Respiratory Rate 21 H 10 L 12 Blood Pressure 131/73 121/75 Pulse Oximetry 97 96 Oxygen Delivery 08/01/25 06:10 08/01/25 07:43 08/01/25 07:43 Temperature 97.5 F L Pulse Rate 104 H 118 H Respiratory Rate 18 Blood Pressure 118/92 H Pulse Oximetry 98 98 Oxygen Delivery Room Air 08/01/25 09:40 08/01/25 09:49 08/01/25 09:51 Temperature Pulse Rate 102 H 100 100 Respiratory Rate 20 Blood Pressure 126/82 126/82 126/82 Pulse Oximetry 98 Oxygen Delivery 08/01/25 11:47 08/01/25 13:38 Temperature Pulse Rate 98 96 Respiratory Rate 19 14 Blood Pressure 126/70 163/94 H Pulse Oximetry 98 98 Oxygen Delivery Exam Const: General: comfortable and no acute distress Other: , male, nontoxic appearance HENMT: Face/Nose/Sinus: Normal nares present Mouth: Yes moist mucous membranes Eyes: General: appearance normal, both eyes and all related structures Sclera: sclerae normal Pupils: Equal, round and reactive pupils present EOM: EOMs intact bilaterally Resp: Effort & Inspection: normal respiratory effort Auscultation: clear to auscultation bilaterally Cardio: Rate: regular rate Rhythm: abnormal rhythm Other: No murmur or rub noted. GI: Other: small firm lump to his right mid abdomen, site from previous hernia repair/drain. Abdomen otherwise soft, nontender, nondistended. Normoactive bowel sounds in all quadrants. Skin: General skin exam: normal color and no rashes or lesions noted Wounds: no wounds Neuro: Speech: normal speech Motor exam (neuro): 5/5 motor strength present throughout Sensory Exam: normal sensation Other: A&O x4 Extrem: General: normal to inspection Psych: Mental Status: mental status grossly normal Affect: normal affect Other: Good insight and judgment, pleasant H&P: Results Labs Labs: Short CBC 07/31/25 Range/Units 18:55 WBC 16.8 H (4.5-10.0) K/mm3 Hgb 14.8 (14.0-18.0) g/dL Hct 43.8 (42.0-52.0) % Plt Count 301 (150-375) k/mm3 BMP 07/31/25 18:55 Sodium 134 L Potassium 3.2 L Chloride 99 Carbon Dioxide 27 BUN 19 Creatinine 1.08 Glucose 126 H Calcium 8.9 Cardiac Enzymes 07/31/25 07/31/25 08/01/25 Range/Units 18:55 21:58 00:36 Troponin I 2.870 H* 8.770 H* D 11.600 H* D (0.000-0.034) ng/mL Liver Function 07/31/25 Range/Units 18:55 Total Bilirubin 0.4 (0.2-1.3) mg/dL AST 49 (17-59) U/L ALT 35 (6-50) U/L Alkaline Phosphatase 78 (38-126) U/L Albumin 3.9 (3.5-5.1) g/dL Assessment and Plan Assessment and plan (1) Atrial flutter: Qualifiers: Atrial flutter type: unspecified Qualified Code(s): I48.92 - Unspecified atrial flutter Code(s): I48.92 - Unspecified atrial flutter Status: Acute Assessment and Plan: Patient has history of atrial fibrillation/atrial flutter, not currently on anti dysrhythmic medication or anticoagulation.?Previously required cardioversion and was taken off medications after that. Initial EKG showed atrial flutter RVR, rate in the 150s.? Initially given Cardizem 20 mg IVP in the ED and started on a Cardizem drip.? Patient now rate controlled at rest with a heart rate in the 90s, however when patient exerts himself he becomes significantly tachycardic. - cardiology consulted - continue diltiazem gtt - troponins elevated, NSTEMI versus demand ischemia - initially refused heparin gtt in the ED, preferred to wait for heparin until after he was transferred to [facility], placed on Lovenox 1 mg/kg BID. now requesting to stay here as his cardiology, readdress/talk to cards - check TSH - check echo. Review chart, last on file from 2022. Showed normal LV systolic function, estimated EF 55-60%, mild LVH, no significant valvular disease. - admission to IMU with telemetry monitoring (2) Elevated troponin: Code(s): R79.89 - Other specified abnormal findings of blood chemistry Status: Acute Assessment and Plan: - NSTEMI/CAD vs demand ischemia secondary to atrial flutter RVR - started on anticoagulation in the ED, Lovenox. Discussed with cardiology, recommended transition to heparin gtt in case of need for procedure/LHC - troponin:? 2.87 -> 8.77 -> 11.6 - continue statin - SL nitro prn - NPO at midnight for possible LHC >> does report he previously coded during a hernia repair. he is unsure what caused it at that time, surgery had been done Hassan. Requesting records. - telemetry monitoring (3) Hyperlipidemia: Qualifiers: Hyperlipidemia type: unspecified Qualified Code(s): E78.5 - Hyperlipidemia, unspecified Code(s): E78.5 - Hyperlipidemia, unspecified Status: Chronic Assessment and Plan: - continue rosuvastatin (4) Essential (primary) hypertension: Code(s): I10 - Essential (primary) hypertension Status: Chronic Assessment and Plan: - chronic, initially elevated at 123/103.? Currently 163/94. - continue losartan 25 mg daily, has not received daily does upon admission on 08/01, give now.? - monitor (5) Obstructive sleep apnea: Code(s): G47.33 - Obstructive sleep apnea (adult) (pediatric) Status: Chronic Assessment and Plan: - continue CPAP - has been intermittently using recently versus nightly. reports he has lost around 40 lbs and has had less snoring, daytime somnolence, and feels he has been needing it less. Plan Mild hypokalemia noted upon admission at 3.2.? Given 40 KCL p.o. Recheck with next lab draw. Diet:? Heart healthy GI Prophylaxis: ?N/a DVT Prophylaxis: heparin gtt IV fluids:? None Lines/Tubes: ?Peripheral IV Code Status:? full code Quality VTE Prophylaxis VTE prophylaxis: pharmacologic ordered Hospitalist MIPS Advance Care Plan I have confirmed that the patient's Advanced Care Plan is present, code status is documented, or surrogate decision maker is listed in patient medical record.: Yes Medication Reconciliation I have utilized all available resources to obtain, update and review the patients current medications (includes all prescriptions, OTC, herbals, cannabis, and nutritional supplements).: Yes
--- NOTE | 2025-08-01 15:02 | ECG_ITS ---
Test Date: 2025-08-01 15:05:04 Measurements Intervals [place] Rate: 92 P: 0 MI: 0 QRS: -31 QRSD: 190 T: 3 QT: 375 QTc: 464 Interpretive Statements ATRIAL FLUTTER/TACHYCARDIA WITH ABERRANT CONDUCTION OR VENTRICULAR PREMATURE COMPLEXES LEFT AXIS DEVIATION INCOMPLETE RIGHT BUNDLE BRANCH BLOCK ABNORMAL ECG Compared to ECG 08/01/2025 00:52:34 HEART RATE HAS DECREASED Ventricular premature complex(es) now present Electronically Signed On 08-01-2025 15:12:43 CDT by Luca Mcgowan D.O.
[2025-08-01] MEDS: LOSARTAN POTASSIUM 25 MG TABLET PO (15:48)
--- NOTE | 2025-08-01 15:54 | PC.NURSE ---
Pt declines insertion of another IV at this time, does not want Heparin infusion at this time.
[2025-08-01] MEDS: HEPARIN SOD/D5W 100 UNITS/ML 25,000 UNITS/250 ML BAG 15 UNITS IV CONT (17:23)
--- NOTE | 2025-08-01 18:20 | ADMGEN ---
This patient, Pierre Fiore, was admitted to IMU Room 232-01 at 1617. Patient/family oriented to hospital policies and general routines including ID bracelet, bed and alarms, visiting hours, pain management, procedures, bathroom and other care routines, personal items, smoking policy, room service/diet, and visiting hours. Information on how to activate the Rapid Response Team has been discussed. Patient/Family are encouraged to report perceived risks to care and to ask questions if they do not understand what they are told or what they should do.
[2025-08-01] MEDS: IBUPROFEN 400 MG TABLET 800 MG PO (21:35)
[2025-08-01] MEDS: GABAPENTIN 400 MG CAPSULE 800 MG PO (21:36)
[2025-08-01] MEDS: dilTIAZem 100 MG/100 ML 100 MG/100 ML BAG 10 MG IV CONT (21:56)
[2025-08-02] VITALS (32 sets, daily range): BP systolic 109–195; BP diastolic 63–105; PULSE 60–130; RESP 13–22; TEMP 36.3–36.9; O2SAT 94–100
--- NOTE | 2025-08-02 | ECHO_ITS ---
Patient Info Name: Pierre Fiore Age: 65 years : 1960 Gender: Male Ht: 70 in Wt: 277 lbs BSA: 2.55 m2 HR: 76 bpm BP: 139 / 93 mmHg Technical Quality: Fair Exam Date: 08/02/2025 1:41 PM Patient Status: I Admit Date: 08/01/2025 Exam Type: CA echo dop color flow w con Complete two-dimensional, color flow and Doppler transthoracic echocardiogram is performed with contrast to opacify the left ventricle and to improve the deliniation of the left ventricle endocardial borders. Staff Referring Physician: Roslyn Eaton PAC Assistant In Nursing: Allison Rhodes Attending Provider: Sheryl Kasper DO Contrast/Agitated Saline Contrast/Ag. Saline: Definity Amount: 2.00 ml Administered By: Allison Rhodes Existing IV Access: Yes IV Access Condition: patent with no signs of infiltration Summary 1. Left ventricular systolic function is normal, estimated at 55-60. 2. There is mildly increased left ventricular wall thickness. 3. The left ventricular diastolic function is abnormal. 4. There is mild aortic valve calcification. 5. There is mild aortic valve stenosis. Mean gradient 4 mmhg and valkve area 1.5cm2. Left Ventricle Left ventricular chamber dimension is normal. Left ventricular systolic function is normal, estimated at 55-60. There is mildly increased left ventricular wall thickness. Left ventricular septal wall motion is normal. The left ventricular diastolic function is abnormal. Right Ventricle Right ventricular chamber dimension is normal. Right ventricular systolic function is normal. Left Atria Left atrial chamber dimension is mildly enlarged. Right Atria Right atrial chamber dimension is normal. Aortic Valve The aortic valve is probable trileaflet. There is no aortic valve sclerosis. There is mild aortic valve stenosis. Mean gradient 4 mmhg and valkve area 1.5cm2. There is no aortic valve regurgitation. There is mild aortic valve calcification. Pulmonic Valve The pulmonic valve is normal. There is no pulmonic valve stenosis. There is no pulmonic regurgitation. Mitral Valve The mitral valve has normal leaflets. There is no mitral valve stenosis. There is no mitral valve regurgitation. Tricuspid Valve The tricuspid valve leaflets are normal. There is no significant tricuspid valve stenosis. There is no tricuspid valve regurgitation. Pericardium/Pleural The pericardium appears normal. There is no pericardial effusion. Inferior Vena Cava Normal inferior vena cava with >50% collapse upon inspiration consistent with normal right atrial pressure, 5 mmHg. Aorta The aortic root size at the sinus of Valsalva is normal. The prox ascending aorta size is normal. Left Ventricular Outflow Tract Name Value Normal LVOT 2D LVOT Diameter 2.0 cm LVOT Doppler LVOT Peak Velocity 59 cm/s LVOT Peak Gradient 1 mmHg LVOT Mean Gradient 1 mmHg LVOT VTI 11 cm LVOT VTI/AV VTI Ratio 0.5 LVOT Stroke Volume 35 ml LVOT CO 3.0 l/min LVOT CI 1.2 l/min/m2 Pulmonic Valve Name Value Normal RVOT Doppler RVOT Peak Velocity 60 cm/s RVOT Peak Gradient 1 mmHg PV Doppler PV Peak Velocity 91 cm/s PV Peak Gradient 3 mmHg Mitral Valve Name Value Normal MV Diastolic Function MV E Peak Velocity 66 cm/s MV A Peak Velocity 45 cm/s MV E/A 1.5 MV Decel Time (PW) 142 ms MV Annular TDI MV E/e' (Septal) 11.6 MV E/e' (Lateral) 7.2 MV E/e' (Average) 9.4 Tricuspid Valve Name Value Normal Estimated PAP/RSVP RA Pressure 5 mmHg <=5 TV Annular TDI TV Lateral Savi s' Velocity 12.2 cm/s >=9.5 Aorta Name Value Normal Ascending Aorta Ao Root Diameter (MM) 3.4 cm Ao Root Diam Index (MM) 1.3 cm/m2 Aortic Valve Name Value Normal AV Doppler AV Peak Velocity 139 cm/s AV Peak Gradient 8 mmHg AV Mean Gradient 4 mmHg AV VTI 24 cm AV Area (Cont Eq VTI) 1.5 cm2 >=3.0 AV Area (Cont Eq Sundeep) 1.4 cm2 AV DI (Sundeep) 0.43 AV Regurgitation 2D LVOT Area 3.3 cm2 Ventricles Name Value Normal LV Dimensions 2D/MM IVS Diastolic Thickness (2D) 1.2 cm 0.6-1.0 LVID Diastole (2D) 5.1 cm 4.2-5.8 LVIW Diastolic Thickness (2D) 1.2 cm 0.6-1.0 LVID Systole (2D) 3.3 cm 2.5-4.0 LVOT Diameter 2.0 cm LV Mass (2D Cubed) 241.56 g 88.00-224.00 LV Mass Index (2D Cubed) 95 g/m2 49-115 Relative Wall Thickness (2D) 0.47 <=0.42 LV Fractional Shortening/Ejection Fraction 2D/MM LV Fractional Shortening (2D) 36 % 25-43 LV EF (2D Teichjian) 65 % LV Diastolic Volume (4C MOD) 129 ml LV EF (4C MOD) 58 % LV Diastolic Volume (2C MOD) 77 ml LV EF (2C MOD) 65 % LV Diastolic Volume (BP MOD) 100 ml 62-150 LV Diastolic Volume Index (BP MOD) 39 ml/m2 34-74 LV Systolic Volume (BP MOD) 38 ml 21-61 LV Systolic Volume Index (BP MOD) 15 ml/m2 11-31 LV EF (BP MOD) 62 % 52-72 LV Diastolic Length (4C) 8.8 cm LV Systolic Length (4C) 7.3 cm LV Stroke Volume (4C MOD) 74 ml Atria Name Value Normal LA Dimensions LA Dimension (MM) 5.0 cm 3.0-4.0 LA Volume (4C A-L) 76 ml LA Volume (BP A-L) 72 ml RA Dimensions RA Area (4C) 16.4 cm2 <=18.0 Report Signatures
[2025-08-02 00:01] LABS: Partial Thromboplastin Time 66.6 Seconds (22.3-36.8)
[2025-08-02] MEDS: dilTIAZem 100 MG/100 ML 100 MG/100 ML BAG 10 MG IV CONT (06:47)
[2025-08-02 07:02] LABS: Hematocrit 47.0 % (42.0-52.0); Hemoglobin 15.7 g/dL (14.0-18.0); Immature Granulocyte Percent A 0.5 % (0-0.5); Lymphocytes Absolute Auto 2.79 K/mm3 (0.9-3.2); Mean Corpuscular HGB Conc 33.4 g/dl (32-36); Mean Corpuscular Hemoglobin 31.3 pg (26-34); Mean Corpuscular Volume 93.8 fl (80-100); Nucleated Red Blood Cells Absolute Auto 0.000 K/mm3 (0.0-0.012); Nucleated Red Blood Cells Perc 0.0 % (0.0-0.2); Platelet Count Result 301 k/mm3 (150-375); Red Blood Count 5.01 M/mm3 (4.6-6.20); White Blood Count 11.6 K/mm3 (4.5-10.0)
[2025-08-02 07:37] LABS: Anion Gap 6 mmol/L (4-12); Blood Urea Nitrogen 10 mg/dL (9-20); Calcium 8.6 mg/dL (8.4-10.2); Carbon Dioxide 26 mmol/L (22-30); Chloride 102 mmol/L (98-107); Estimated CRCL calculation 97 ml/min; Estimated Glomerular Filt Rate > 60; Glucose 119 mg/dL (65-110); Potassium 3.9 mmol/L (3.4-5.0); Sodium 134 mmol/L (137-145)
[2025-08-02 07:46] LABS: Partial Thromboplastin Time 63.6 Seconds (22.3-36.8)
[2025-08-02 08:20] LABS: Thyroid Stimulating Hormone Reflex 2.400 uIU/mL (0.465-4.68)
[2025-08-02] MEDS: HEPARIN SOD/D5W 100 UNITS/ML 25,000 UNITS/250 ML BAG 19 UNITS IV CONT (08:35)
[2025-08-02] MEDS: PANTOPRAZOLE 40 MG TABLET PO (08:40)
[2025-08-02] MEDS: LOSARTAN POTASSIUM 25 MG TABLET PO (08:41)
[2025-08-02] MEDS: ROSUVASTATIN 20 MG TABLET PO (08:41)
--- NOTE | 2025-08-02 08:53 | PM.IMPN ---
Progress Note: A&P Assessment and Plan (1) Atrial flutter: Qualifiers: Atrial flutter type: unspecified Qualified Code(s): I48.92 - Unspecified atrial flutter Code(s): I48.92 - Unspecified atrial flutter Status: Acute Assessment and Plan: Patient has history of atrial fibrillation/atrial flutter, not currently on anti dysrhythmic medication or anticoagulation.?Previously required cardioversion and was taken off medications after that. Initial EKG showed atrial flutter RVR, rate in the 150s.? Initially given Cardizem 20 mg IVP in the ED and started on a Cardizem drip.? Patient now rate controlled at rest with a heart rate in the 90s, however when patient exerts himself he becomes significantly tachycardic. - cardiology consulted - continue diltiazem gtt - troponins elevated, NSTEMI versus demand ischemia - initially refused heparin gtt in the ED, preferred to wait for heparin until after he was transferred to [facility], placed on Lovenox 1 mg/kg BID. now requesting to stay here as his cardiology, readdress/talk to cards - check TSH - check echo. Review chart, last on file from 2022. Showed normal LV systolic function, estimated EF 55-60%, mild LVH, no significant valvular disease. - admission to IMU with telemetry monitoring 08/02 card consulted-awaiting recommendation currently hr 90's, chest pain free continue tele NPO, heparin drip (2) Elevated troponin: Code(s): R79.89 - Other specified abnormal findings of blood chemistry Status: Acute Assessment and Plan: - NSTEMI/CAD vs demand ischemia secondary to atrial flutter RVR - started on anticoagulation in the ED, Lovenox. Discussed with cardiology, recommended transition to heparin gtt in case of need for procedure/LHC - troponin:? 2.87 -> 8.77 -> 11.6 - continue statin - SL nitro prn - NPO at midnight for possible LHC >> does report he previously coded during a hernia repair. he is unsure what caused it at that time, surgery had been done Hassan. Requesting records. - telemetry monitoring cardiology consulted- awaiting recommendations (3) Hyperlipidemia: Qualifiers: Hyperlipidemia type: unspecified Qualified Code(s): E78.5 - Hyperlipidemia, unspecified Code(s): E78.5 - Hyperlipidemia, unspecified Status: Chronic Assessment and Plan: - continue rosuvastatin (4) Essential (primary) hypertension: Code(s): I10 - Essential (primary) hypertension Status: Chronic Assessment and Plan: - chronic, initially elevated at 123/103.? Currently 163/94. - continue losartan 25 mg daily, has not received daily does upon admission on 08/01, give now.? - monitor (5) Obstructive sleep apnea: Code(s): G47.33 - Obstructive sleep apnea (adult) (pediatric) Status: Chronic Assessment and Plan: - continue CPAP - has been intermittently using recently versus nightly. reports he has lost around 40 lbs and has had less snoring, daytime somnolence, and feels he has been needing it less. Plan Mild hypokalemia noted upon admission at 3.2.? Given 40 KCL p.o. Recheck with next lab draw. Diet:? Heart healthy GI Prophylaxis: ?N/a DVT Prophylaxis: heparin gtt IV fluids:? None Lines/Tubes: ?Peripheral IV Code Status:? full code Time Spent With Patient Time with patient: 25 - 35 minutes Subjective Date/time seen: 08/02/25 08:53 Interval history: 65 y/o M with PMH of HLD, atrial flutter/atrial fibrillation (previously cardioverted x1), GIBRAN on CPAP, and hypertension presents here with lightheadedness and chest pain. The patient presents here from home via EMS on 07/31. He reported at that time that he developed lightheadedness, dizziness, and chest pain around 4:00 p.m. on Thursday (07/31). ?He described the chest discomfort has pressure across the top of his chest, nonradiating, constant, and lasted for 45 minutes. ?Did feel weak and had to lower himself to his knee but did not pass out. Pain resolved after he laid down/sat down without further medications or intervention.? He then reports the pain returned around 5:15 p.m. while he was laying down. He described the pain during the 2nd episode as similar to the first episode. Pain resolved by the time EMS arrived. ?He has a cardiac history significant for atrial fibrillation, not currently on rate controlling medications or anticoagulation. He was previously cardioverted and eventually taken off his medications.?Patient has previously followed with a surveillance systems engineer, Dr. Cleaning at [facility].? This prompted an initial transfer to [facility]. ?However his surveillance systems engineer no longer practices at [facility], now at [facility]. ?Patient now requesting to stay at [place] vers transfer to [facility].? He currently reports no reoccurrence of chest pain/tightness. Denies nausea, vomiting, palpitations, or shortness of breath. Initial VS at presentation: ?98? F, HR 150, R 34, 123/103, and 100% on RA.? HR now 96, BP 163/94. ED workup showed: ?WBC 16.8, no anemia, normal coags, negative D-dimer, sodium 134, potassium 3.2, creatinine 1.08 and GFR >60, glucose 126, initial troponin 2.87, peak at 11.6 thus far.? CXR showed no acute pulmonary findings.? Chest CTA showed no PE, dissection, pericardial fluid, or thoracic aneurysm, no acute lung findings.? Initial EKG showed atrial flutter/tachycardia with RVR, LVH and ST-T change, rate 151. Pt is seen and examined. Hr is at 90's currently. NO chest pain. Cardiology consulted. Exam Narrative: small firm lump to his right mid abdomen, site from previous hernia repair/drain. Const: General: comfortable and no acute distress Other: , male, nontoxic appearance HENMT: Face/Nose/Sinus: Normal nares present Mouth: Yes moist mucous membranes Eyes: General: appearance normal, both eyes and all related structures Sclera: sclerae normal Pupils: Equal, round and reactive pupils present EOM: EOMs intact bilaterally Resp: Effort & Inspection: normal respiratory effort Auscultation: clear to auscultation bilaterally Cardio: Rate: regular rate Rhythm: abnormal rhythm Other: No murmur or rub noted. GI: Other: small firm lump to his right mid abdomen, site from previous hernia repair/drain. Abdomen otherwise soft, nontender, nondistended. Normoactive bowel sounds in all quadrants. Skin: General skin exam: normal color and no rashes or lesions noted Wounds: no wounds Neuro: Cranial nerves: Yes Equal, round and reactive pupils present Speech: normal speech Motor exam (neuro): 5/5 motor strength present throughout Sensory Exam: normal sensation Other: A&O x4 Extrem: General: normal to inspection Psych: Mental Status: mental status grossly normal Affect: normal affect Other: Good insight and judgment, pleasant Objective Data Vital Signs Vital Signs: Vital Signs - 24 hr 08/01/25 09:40 08/01/25 09:49 08/01/25 09:51 Temperature Pulse Rate 102 H 100 100 Respiratory Rate 20 Blood Pressure 126/82 126/82 126/82 Pulse Oximetry 98 Oxygen Delivery Fraction of Inspired Oxygen 08/01/25 11:47 08/01/25 13:38 08/01/25 15:49 Temperature Pulse Rate 98 96 89 Respiratory Rate 19 14 20 Blood Pressure 126/70 163/94 H 160/89 H Pulse Oximetry 98 98 97 Oxygen Delivery Fraction of Inspired Oxygen 08/01/25 16:08 08/01/25 16:12 08/01/25 16:15 Temperature 98.0 F Pulse Rate 89 89 94 Respiratory Rate 24 H Blood Pressure 160/80 H 160/80 H 150/72 H Pulse Oximetry 93 Oxygen Delivery Fraction of Inspired Oxygen 08/01/25 16:17 08/01/25 18:00 08/01/25 18:00 Temperature Pulse Rate 94 96 98 Respiratory Rate Blood Pressure 150/72 H 150/84 H Pulse Oximetry Oxygen Delivery Fraction of Inspired Oxygen 08/01/25 18:36 08/01/25 20:00 08/01/25 20:00 Temperature 98.2 F Pulse Rate 98 88 90 Respiratory Rate 14 Blood Pressure 150/84 H 142/89 H 142/89 H Pulse Oximetry 95 Oxygen Delivery Fraction of Inspired Oxygen 08/01/25 20:00 08/01/25 20:00 08/01/25 21:30 Temperature Pulse Rate 93 93 87 Respiratory Rate 14 Blood Pressure Pulse Oximetry 99 94 Oxygen Delivery Room Air Room Air Fraction of Inspired Oxygen 21 21 08/01/25 21:30 08/01/25 21:56 08/01/25 22:00 Temperature Pulse Rate 87 88 90 Respiratory Rate 14 Blood Pressure 142/97 H 142/97 H Pulse Oximetry 94 98 Oxygen Delivery Room Air Fraction of Inspired Oxygen 08/01/25 22:00 08/02/25 00:00 08/02/25 00:00 Temperature 98.4 F Pulse Rate 88 90 82 Respiratory Rate 14 14 Blood Pressure 164/84 H Pulse Oximetry 99 99 Oxygen Delivery Room Air Fraction of Inspired Oxygen 21 08/02/25 00:00 08/02/25 00:00 08/02/25 02:00 Temperature Pulse Rate 82 82 89 Respiratory Rate 14 Blood Pressure 164/84 H 132/90 Pulse Oximetry 99 Oxygen Delivery Fraction of Inspired Oxygen 08/02/25 02:00 08/02/25 02:00 08/02/25 04:00 Temperature Pulse Rate 88 88 83 Respiratory Rate 14 Blood Pressure 195/84 H Pulse Oximetry 99 Oxygen Delivery Room Air Fraction of Inspired Oxygen 21 08/02/25 04:00 08/02/25 04:00 08/02/25 04:00 Temperature 97.9 F Pulse Rate 83 94 94 Respiratory Rate 16 Blood Pressure 117/86 117/86 Pulse Oximetry 98 Oxygen Delivery Fraction of Inspired Oxygen 08/02/25 05:59 08/02/25 06:00 08/02/25 06:00 Temperature Pulse Rate 125 H 125 H 84 Respiratory Rate 16 Blood Pressure 154/80 H 154/80 H Pulse Oximetry 99 Oxygen Delivery Fraction of Inspired Oxygen 08/02/25 06:47 08/02/25 06:47 08/02/25 08:00 Temperature 97.5 F L Pulse Rate 130 H 130 H 90 Respiratory Rate 18 Blood Pressure 154/80 H 143/91 H Pulse Oximetry 95 Oxygen Delivery Fraction of Inspired Oxygen Intake/Output Intake/Output: Intake & Output 07/30/25 07/31/25 08/01/25 08/02/25 23:59 23:59 23:59 23:59 Intake Total 16.1 580.9 393.8 Balance 16.1 580.9 393.8 Meds/Results Medications: Active Medications Generic Name Dose Route Start Last Admin Trade Name Freq PRN Reason Stop Dose Admin Gabapentin 800 mg 08/01/25 21:59 Gabapentin 400 Mg Capsule PO QHS PRN Insomnia Heparin Sodium (Porcine) 7,500 units 08/01/25 14:43 Heparin Sodium 5,000 Units/Ml Vial IV PUSH PRN PRN aPTT less than 55 seconds Heparin Sodium (Porcine) 4,000 units 08/01/25 14:43 08/02/25 08:36 Heparin Sodium 5,000 Units/Ml Vial IV PUSH 4,000 units PRN PRN Administration aPTT 55 - 70 seconds Diltiazem HCl 100 mg in 100 mls @ 10 mls/hr 08/01/25 21:45 08/02/25 06:47 Cardizem 100 Mg/100 Ml IV CONT 10 mg/hr .Q10H ALLAN 10 mls/hr 10 MG/HR Administration Heparin Sodium/Dextrose 25,000 units in 250 mls @ 17 mls/hr 08/02/25 08:20 08/02/25 08:35 Heparin Sodium/D5w 100 Units/Ml IV CONT 1,900 units/hr .[id number] ALLAN 19 mls/hr Protocol Administration 1,700 UNITS/HR Losartan Potassium 25 mg 08/01/25 14:50 08/02/25 08:41 Losartan Potassium 25 Mg Tablet PO 25 mg DAILY ALLAN Administration Nitroglycerin 0.4 mg 08/01/25 14:48 Nitroglycerin Sl 0.4 Mg Tablet SUBLINGUAL Q5M PRN Chest Pain Pantoprazole Sodium 40 mg 08/02/25 09:00 08/02/25 08:40 Pantoprazole 40 Mg Tablet PO 40 mg DAILY ALLAN Administration Perflutren Lipid Microsphere 0 ml 08/01/25 14:48 Perflutren Lipid Microspheres 1.5 Ml Vial Diluted To 10 Ml Total Volume IV PUSH 08/04/25 14:49 ONCE PRN adequate visualization Protocol Rosuvastatin Calcium 20 mg 08/02/25 09:00 08/02/25 08:41 Rosuvastatin 20 Mg Tablet PO 20 mg DAILY ALLAN Administration Radiology Results: ITS Impressions Chest X-Ray 07/31/25 19:38 IMPRESSION: No acute pulmonary findings. Chest CTA 07/31/25 21:04 IMPRESSION: There is no pulmonary embolism, aortic dissection, pericardial fluid or thoracic aneurysm. No acute lung findings. All CT scans at this facility are performed using low dose modulation techniques as appropriate to perform exam including the following: automated exposure control; use of iterative reconstruction technique; adjustment of the mA and/or kV according to patient size (this includes techniques or standardized protocols for targeted exams where dose is matched to indication/reason for exam). Labs Labs: Laboratory Results - last 24 hr 08/01/25 08/02/25 23:29 06:53 WBC 11.6 H RBC 5.01 Hgb 15.7 Hct 47.0 MCV 93.8 MCH 31.3 MCHC 33.4 RDW 12.2 Plt Count 301 MPV 9.6 Immature Gran % (Auto) 0.5 Neut % (Auto) 62.7 Lymph % (Auto) 24.0 [place] % (Auto) 8.5 Eos % (Auto) 3.4 Baso % (Auto) 0.9 Lymph # (Auto) 2.79 [place] # (Auto) 1.0 H Eos # (Auto) 0.4 H Baso # (Auto) 0.1 Abs Immat Gran (auto) 0.06 H Absolute Neuts (auto) 7.3 H Absolute Nucleated RBC 0.000 Nucleated RBC % 0.0 APTT 66.6 H 63.6 H Sodium 134 L Potassium 3.9 Chloride 102 Carbon Dioxide 26 Anion Gap 6 BUN 10 D Creatinine 0.89 Estim Creat Clear Calc 97 Estimated GFR > 60 Glucose 119 H Calcium 8.6 TSH (Reflex) 2.400 Quality VTE Prophylaxis VTE prophylaxis: pharmacologic ordered
--- NOTE | 2025-08-02 08:53 | PM.CNCAR ---
Assessment and Plan Assessment and plan (1) Atrial fibrillation with RVR: Code(s): I48.91 - Unspecified atrial fibrillation Status: Acute (2) NSTEMI (non-ST elevated myocardial infarction): Code(s): I21.4 - Non-ST elevation (NSTEMI) myocardial infarction Status: Acute (3) Essential (primary) hypertension: Code(s): I10 - Essential (primary) hypertension Status: Chronic (4) Hyperlipidemia: Qualifiers: Hyperlipidemia type: unspecified Qualified Code(s): E78.5 - Hyperlipidemia, unspecified Code(s): E78.5 - Hyperlipidemia, unspecified Status: Chronic (5) Morbid obesity with BMI of 40.0-44.9, adult: Code(s): E66.01 - Morbid (severe) obesity due to excess calories; Z68.41 - Body mass index [BMI] 40.0-44.9, adult Status: Acute Plan NSTEMI/chest pain-Patient presents with chest pain, dizziness and near syncope. Initial troponin of 2.87, current troponin of 11.6. EKG on admission atrial flutter with RVR, but no acute ST/T wave changes. CTA chest negative for PE and CXR with no acute cardiopulmonary process. Troponin elevation is not consistent with demand ischemia secondary to atrial flutter. Given chest pain, continued rise in troponin and risk factors for CAD will plan for [facility] today. Patient remains on heparin drip at this time. Echo is ordered to look for any LV dysfunction or wall motion abnormality. Risk/benefits of procedure discussed with patient and his . They are agreeable and understanding is verbalized. Atrial flutter/fibrillation-has previous history of afib back in 2022. Reports cardioversion at that time and was on Eliquis. No issue since then and is no longer on Eliquis. He was noted on admission to be in atrial flutter rates in the 150s. He is currently on a diltiazem drip and rates now in low 100s. Remains on heparin for AC at this time. Further recommendations pending [facility] findings Hypertension. With elevated BP on admission. Would resume his home losartan. Will up titrate dose as needed Hyperlipidemia. On crestor 20 mg daily at home. Would resume History of GIBRAN. No longer wearing CPAP since his 40lb weight loss Obesity. Continued weight loss encouraged Family history of CAD. Father with CABG in his 60s. History of Present Illness History of Present Illness Consult date/time: 08/02/25 08:53 Requesting physician: Lenka Jiménez APRN Consult reason: atrial fibrillation Reason For Visit: a fib w rvr Narrative: Pierre Fiore is a 65 y.o. male with a PMH of HTN, HLD, GIBRAN, and obesity. He presented to the ER with reports of chest pain, near syncope and diaphoresis. According to the patient he was in his normal state of health and was driving home on Thursday when he felt a pressure/tightness across his chest. He states he felt dizzy and as if he was going to pass out. He got home and symptoms continued to persist. He states he was in the bathroom and actually fell to the ground because of symptoms. Denies any LOC. At that time EMS was called. He was transferred to ER and found to be atrial flutter rates in the 150s. He states he had a similar episode like this in 2022 and was cardioverted at that time. This am he is feeling improved with better controlled HR. Denies any chest pain or pressure at this time. Review of Systems Review of Systems: All systems reviewed & are unremarkable except as noted in HPI and below PMFSH Past Medical History Medical History Atrial fibrillation Hyperlipidemia Obstructive sleep apnea Atrial flutter Morbid obesity with BMI of 40.0-44.9, adult Family history of colon cancer Abdominal hernia without obstruction or gangrene Essential (primary) hypertension Surgical History Surgical History H/O hernia repair Family History Family History Father Family history of cardiovascular disease Carcinoma of colon Diabetes mellitus Hypertension Mother Cancer Sibling Hypertension Social History Social History Smoking status: Never smoker Second hand tobacco smoke exposure: Yes Alcohol intake: current Drinks per week: 3 Substance use: never Substance use type: does not use Lack of Transportation: No Lack of Food: Never True Current Housing: I Have Housing Concerned About Future Housing: No Difficulty Paying Gas/Electric Bills: No Difficulty Paying for Meds: No Currently Unemployed: No Education: Associate Degree Difficulty w/ Childcare or Family Care: No Living arrangements: with family Occupation/Education: occupation Additional occupation/education comments: sales Gender identity (if verbalized by the patient): Male Spiritual care concerns: No Meds Home Medications and Allergies Home Medications ?Medication ?Instructions ?Recorded ?Confirmed ?Type CPAP Pressure Settings #1 ea 05/18/23 08/01/25 Rx Held on 08/01/25. Instructions: Patient Condition rosuvastatin 20 mg tablet 20 mg PO DAILY #90 tabs 08/06/23 07/31/25 Rx pantoprazole 40 mg tablet,delayed 40 mg PO DAILY #90 tabs 06/06/25 07/31/25 Rx release losartan 25 mg tablet 25 mg PO DAILY #90 tabs 07/18/25 07/31/25 Rx tirzepatide (weight loss) 10 10 mg (0.5 mL) subcut WEEKLY #2 mL 07/24/25 08/01/25 Rx mg/0.5 mL subcutaneous solution (Zepbound) gabapentin 800 mg tablet 800 mg PO QHS PRN sleep 08/01/25 08/01/25 History Allergies Allergy/AdvReac Type Severity Reaction Status Date / Time morphine Allergy Severe Hallucinati Verified 08/01/25 17:56 ng fentanyl AdvReac tachycardia, Verified 08/01/25 17:56 hypertension Vital Signs Vital Signs - 24 hr 08/01/25 09:40 08/01/25 09:49 08/01/25 09:51 Temperature Pulse Rate 102 H 100 100 Respiratory Rate 20 Blood Pressure 126/82 126/82 126/82 Pulse Oximetry 98 Oxygen Delivery Fraction of Inspired Oxygen 08/01/25 11:47 08/01/25 13:38 08/01/25 15:49 Temperature Pulse Rate 98 96 89 Respiratory Rate 19 14 20 Blood Pressure 126/70 163/94 H 160/89 H Pulse Oximetry 98 98 97 Oxygen Delivery Fraction of Inspired Oxygen 08/01/25 16:08 08/01/25 16:12 08/01/25 16:15 Temperature 36.7 C Pulse Rate 89 89 94 Respiratory Rate 24 H Blood Pressure 160/80 H 160/80 H 150/72 H Pulse Oximetry 93 Oxygen Delivery Fraction of Inspired Oxygen 08/01/25 16:17 08/01/25 18:00 08/01/25 18:00 Temperature Pulse Rate 94 96 98 Respiratory Rate Blood Pressure 150/72 H 150/84 H Pulse Oximetry Oxygen Delivery Fraction of Inspired Oxygen 08/01/25 18:36 08/01/25 20:00 08/01/25 20:00 Temperature 36.8 C Pulse Rate 98 88 90 Respiratory Rate 14 Blood Pressure 150/84 H 142/89 H 142/89 H Pulse Oximetry 95 Oxygen Delivery Fraction of Inspired Oxygen 08/01/25 20:00 08/01/25 20:00 08/01/25 21:30 Temperature Pulse Rate 93 93 87 Respiratory Rate 14 Blood Pressure Pulse Oximetry 99 94 Oxygen Delivery Room Air Room Air Fraction of Inspired Oxygen 21 21 08/01/25 21:30 08/01/25 21:56 08/01/25 22:00 Temperature Pulse Rate 87 88 90 Respiratory Rate 14 Blood Pressure 142/97 H 142/97 H Pulse Oximetry 94 98 Oxygen Delivery Room Air Fraction of Inspired Oxygen 08/01/25 22:00 08/02/25 00:00 08/02/25 00:00 Temperature 36.9 C Pulse Rate 88 90 82 Respiratory Rate 14 14 Blood Pressure 164/84 H Pulse Oximetry 99 99 Oxygen Delivery Room Air Fraction of Inspired Oxygen 21 08/02/25 00:00 08/02/25 00:00 08/02/25 02:00 Temperature Pulse Rate 82 82 89 Respiratory Rate 14 Blood Pressure 164/84 H 132/90 Pulse Oximetry 99 Oxygen Delivery Fraction of Inspired Oxygen 08/02/25 02:00 08/02/25 02:00 08/02/25 04:00 Temperature Pulse Rate 88 88 83 Respiratory Rate 14 Blood Pressure 195/84 H Pulse Oximetry 99 Oxygen Delivery Room Air Fraction of Inspired Oxygen 21 08/02/25 04:00 08/02/25 04:00 08/02/25 04:00 Temperature 36.6 C Pulse Rate 83 94 94 Respiratory Rate 16 Blood Pressure 117/86 117/86 Pulse Oximetry 98 Oxygen Delivery Fraction of Inspired Oxygen 08/02/25 05:59 08/02/25 06:00 08/02/25 06:00 Temperature Pulse Rate 125 H 125 H 84 Respiratory Rate 16 Blood Pressure 154/80 H 154/80 H Pulse Oximetry 99 Oxygen Delivery Fraction of Inspired Oxygen 08/02/25 06:47 08/02/25 06:47 08/02/25 08:00 Temperature 36.4 C L Pulse Rate 130 H 130 H 90 Respiratory Rate 18 Blood Pressure 154/80 H 143/91 H Pulse Oximetry 95 Oxygen Delivery Fraction of Inspired Oxygen Exam Const: General: no acute distress Eyes: General: appearance normal, both eyes and all related structures Neck: Neck: No no JVD Thyroid: thyroid normal Carotids: no bruits Resp: Effort & Inspection: normal respiratory effort Auscultation: clear to auscultation bilaterally Cardio: Rate: tachycardic Rhythm: regular rhythm Heart sounds: no murmurs and no rubs Other: irreg irreg Skin: General skin exam: normal color and no erythema Wounds: wound noted Neuro: Speech: normal speech Extrem: General: no edema Psych: Mental Status: mental status grossly normal Results Labs and Meds 08/02/25 06:53 08/02/25 06:53 Lab results: Coagulation 08/01/25 08/02/25 Range/Units 23:29 06:53 APTT 66.6 H 63.6 H (22.3-36.8) Seconds CBC 08/02/25 Range/Units 06:53 WBC 11.6 H (4.5-10.0) K/mm3 RBC 5.01 (4.6-6.20) M/mm3 Hgb 15.7 (14.0-18.0) g/dL Hct 47.0 (42.0-52.0) % Plt Count 301 (150-375) k/mm3 Lymph # (Auto) 2.79 (0.9-3.2) K/mm3 [place] # (Auto) 1.0 H (0.1-0.6) K/mm3 Eos # (Auto) 0.4 H (0-0.3) K/mm3 Baso # (Auto) 0.1 (0.0-0.1) K/mm3 Comprehensive Metabolic Panel 08/02/25 Range/Units 06:53 Sodium 134 L (137-145) mmol/L Potassium 3.9 (3.4-5.0) mmol/L Chloride 102 (98-107) mmol/L Carbon Dioxide 26 (22-30) mmol/L BUN 10 D (9-20) mg/dL Creatinine 0.89 (0.7-1.3) mg/dL Glucose 119 H (65-110) mg/dL Calcium 8.6 (8.4-10.2) mg/dL Intake and Output 08/01/25 08/02/25 08/02/25 23:59 07:59 15:59 Intake Total 397.0 393.8 Balance 397.0 393.8 Intake: IV 157.0 193.8 Heparin Sod/D5w 100 Units/ml 25 105.3 ,000 units In 250 ml @ 1,700 UNITS/HR 17 mls/hr IV CONT . [id number] STA Rx#:[id number] dilTIAZem 100 MG/100 ML 100 mg 157.0 88.5 In 100 ml @ 10 MG/HR 10 mls/hr IV CONT .Q10H ALLAN Rx#:[id number] Oral 240 200 Other: # Unmeasured Voids 1 2 Patient Weight 08/02/25 23:59 Weight 125.9 kg Imaging and Cardiology EKG results: image reviewed EKG Interpretation EKG shows: atrial fibrillation (atrial flutter with left axis deviation rate of 150bpm. No acute ST/T wave changes. )
--- NOTE | 2025-08-02 11:57 | WPDMODSED ---
Moderate Sedation Note-Pt Data Patient Data Allergies Allergy/AdvReac Type Severity Reaction Status Date / Time morphine Allergy Severe Hallucinati Verified 08/01/25 17:56 ng fentanyl AdvReac tachycardia, Verified 08/01/25 17:56 hypertension Home Medications ?Medication ?Instructions ?Recorded ?Confirmed ?Type CPAP Pressure Settings #1 ea 05/18/23 08/01/25 Rx Held on 08/01/25. Instructions: Patient Condition rosuvastatin 20 mg tablet 20 mg PO DAILY #90 tabs 08/06/23 07/31/25 Rx pantoprazole 40 mg tablet,delayed 40 mg PO DAILY #90 tabs 06/06/25 07/31/25 Rx release losartan 25 mg tablet 25 mg PO DAILY #90 tabs 07/18/25 07/31/25 Rx tirzepatide (weight loss) 10 10 mg (0.5 mL) subcut WEEKLY #2 mL 07/24/25 08/01/25 Rx mg/0.5 mL subcutaneous solution (Zepbound) gabapentin 800 mg tablet 800 mg PO QHS PRN sleep 08/01/25 08/01/25 History Current Medications: Active Medications Gabapentin (Gabapentin 400 Mg Capsule) 800 mg PO QHS PRN PRN Reason: Insomnia Heparin Sodium (Porcine) (Heparin Sodium 5,000 Units/Ml Vial) 7,500 units IV PUSH PRN PRN PRN Reason: aPTT less than 55 seconds Heparin Sodium (Porcine) (Heparin Sodium 5,000 Units/Ml Vial) 4,000 units IV PUSH PRN PRN PRN Reason: aPTT 55 - 70 seconds Last Admin: 08/02/25 08:36 Dose: 4,000 units Diltiazem HCl (Cardizem 100 Mg/100 Ml) 100 mg in 100 mls @ 10 mls/hr IV CONT .Q10H [facility] Last Infusion: 08/02/25 10:00 Dose: 10 mg/hr, 10 mls/hr Heparin Sodium/Dextrose (Heparin Sodium/D5w 100 Units/Ml) 25,000 units in 250 mls @ 17 mls/hr IV CONT .[id number] [facility]; Protocol Last Admin: 08/02/25 08:35 Dose: 1,900 units/hr, 19 mls/hr Losartan Potassium (Losartan Potassium 25 Mg Tablet) 25 mg PO DAILY [facility] Last Admin: 08/02/25 08:41 Dose: 25 mg Nitroglycerin (Nitroglycerin Sl 0.4 Mg Tablet) 0.4 mg SUBLINGUAL Q5M PRN PRN Reason: Chest Pain Pantoprazole Sodium (Pantoprazole 40 Mg Tablet) 40 mg PO DAILY [facility] Last Admin: 08/02/25 08:40 Dose: 40 mg Perflutren Lipid Microsphere (Perflutren Lipid Microspheres 1.5 Ml Vial Diluted To 10 Ml Total Volume) 0 ml IV PUSH ONCE PRN; Protocol PRN Reason: adequate visualization Stop: 08/04/25 14:49 Rosuvastatin Calcium (Rosuvastatin 20 Mg Tablet) 20 mg PO DAILY [facility] Last Admin: 08/02/25 08:41 Dose: 20 mg Sedation/Anesthesia: No previous sedation/anesthesia problems (including family history). [facility] Past Medical History Medical History Atrial fibrillation Hyperlipidemia Obstructive sleep apnea Atrial flutter Morbid obesity with BMI of 40.0-44.9, adult Family history of colon cancer Abdominal hernia without obstruction or gangrene Essential (primary) hypertension Surgical History Surgical History H/O hernia repair Family History Family History Father Family history of cardiovascular disease Carcinoma of colon Diabetes mellitus Hypertension Mother Cancer Sibling Hypertension Social History Social History Smoking status: Never smoker Second hand tobacco smoke exposure: Yes Alcohol intake: current Drinks per week: 3 Substance use: never Substance use type: does not use Lack of Transportation: No Lack of Food: Never True Current Housing: I Have Housing Concerned About Future Housing: No Difficulty Paying Gas/Electric Bills: No Difficulty Paying for Meds: No Currently Unemployed: No Education: Associate Degree Difficulty w/ Childcare or Family Care: No Living arrangements: with family Occupation/Education: occupation Additional occupation/education comments: sales Gender identity (if verbalized by the patient): Male Spiritual care concerns: No Mod Sed Physical Exam Physical Exam Pre Procedural Exam: Normal: Airway Hours since solid foods: 10 Hours since liquid intake: 10 Mallampati Classification: class III Internal Medicine - PN: Obj Da Vital Signs Vital Signs: Vital Signs - 24 hr 08/01/25 13:38 08/01/25 15:49 08/01/25 16:08 Temperature Pulse Rate 96 89 89 Respiratory Rate 14 20 Blood Pressure 163/94 H 160/89 H 160/80 H Pulse Oximetry 98 97 Oxygen Delivery Fraction of Inspired Oxygen 08/01/25 16:12 08/01/25 16:15 08/01/25 16:17 Temperature 36.7 C Pulse Rate 89 94 94 Respiratory Rate 24 H Blood Pressure 160/80 H 150/72 H 150/72 H Pulse Oximetry 93 Oxygen Delivery Fraction of Inspired Oxygen 08/01/25 18:00 08/01/25 18:00 08/01/25 18:36 Temperature Pulse Rate 96 98 98 Respiratory Rate Blood Pressure 150/84 H 150/84 H Pulse Oximetry Oxygen Delivery Fraction of Inspired Oxygen 08/01/25 20:00 08/01/25 20:00 08/01/25 20:00 Temperature 36.8 C Pulse Rate 88 90 93 Respiratory Rate 14 14 Blood Pressure 142/89 H 142/89 H Pulse Oximetry 95 99 Oxygen Delivery Room Air Fraction of Inspired Oxygen 21 08/01/25 20:00 08/01/25 21:30 08/01/25 21:30 Temperature Pulse Rate 93 87 87 Respiratory Rate Blood Pressure Pulse Oximetry 94 94 Oxygen Delivery Room Air Room Air Fraction of Inspired Oxygen 21 08/01/25 21:56 08/01/25 22:00 08/01/25 22:00 Temperature Pulse Rate 88 90 88 Respiratory Rate 14 Blood Pressure 142/97 H 142/97 H Pulse Oximetry 98 Oxygen Delivery Fraction of Inspired Oxygen 08/02/25 00:00 08/02/25 00:00 08/02/25 00:00 Temperature 36.9 C Pulse Rate 90 82 82 Respiratory Rate 14 14 Blood Pressure 164/84 H Pulse Oximetry 99 99 Oxygen Delivery Room Air Fraction of Inspired Oxygen 21 08/02/25 00:00 08/02/25 02:00 08/02/25 02:00 Temperature Pulse Rate 82 89 88 Respiratory Rate 14 Blood Pressure 164/84 H 132/90 195/84 H Pulse Oximetry 99 Oxygen Delivery Fraction of Inspired Oxygen 08/02/25 02:00 08/02/25 04:00 08/02/25 04:00 Temperature Pulse Rate 88 83 83 Respiratory Rate 14 Blood Pressure Pulse Oximetry 99 Oxygen Delivery Room Air Fraction of Inspired Oxygen 21 08/02/25 04:00 08/02/25 04:00 08/02/25 05:59 Temperature 36.6 C Pulse Rate 94 94 125 H Respiratory Rate 16 16 Blood Pressure 117/86 117/86 154/80 H Pulse Oximetry 98 99 Oxygen Delivery Fraction of Inspired Oxygen 08/02/25 06:00 08/02/25 06:00 08/02/25 06:47 Temperature Pulse Rate 125 H 84 130 H Respiratory Rate Blood Pressure 154/80 H Pulse Oximetry Oxygen Delivery Fraction of Inspired Oxygen 08/02/25 06:47 08/02/25 08:00 08/02/25 08:00 Temperature 36.4 C L Pulse Rate 130 H 90 90 Respiratory Rate 18 Blood Pressure 154/80 H 143/91 H Pulse Oximetry 95 Oxygen Delivery Fraction of Inspired Oxygen 08/02/25 08:00 08/02/25 10:00 08/02/25 10:00 Temperature 36.3 C L Pulse Rate 90 88 88 Respiratory Rate 20 Blood Pressure 143/91 H 115/94 H 115/94 H Pulse Oximetry 96 Oxygen Delivery Fraction of Inspired Oxygen 08/02/25 10:00 Temperature Pulse Rate 97 Respiratory Rate Blood Pressure Pulse Oximetry Oxygen Delivery Fraction of Inspired Oxygen Intake/Output Intake/Output: Intake & Output 07/30/25 07/31/25 08/01/25 08/02/25 23:59 23:59 23:59 23:59 Intake Total 16.1 580.9 426.0 Balance 16.1 580.9 426.0 Meds/Results Medications: Active Medications Generic Name Dose Route Start Last Admin Trade Name Freq PRN Reason Stop Dose Admin Gabapentin 800 mg 08/01/25 21:59 Gabapentin 400 Mg Capsule PO QHS PRN Insomnia Heparin Sodium (Porcine) 7,500 units 08/01/25 14:43 Heparin Sodium 5,000 Units/Ml Vial IV PUSH PRN PRN aPTT less than 55 seconds Heparin Sodium (Porcine) 4,000 units 08/01/25 14:43 08/02/25 08:36 Heparin Sodium 5,000 Units/Ml Vial IV PUSH 4,000 units PRN PRN Administration aPTT 55 - 70 seconds Diltiazem HCl 100 mg in 100 mls @ 10 mls/hr 08/01/25 21:45 08/02/25 10:00 Cardizem 100 Mg/100 Ml IV CONT 10 mg/hr .Q10H [facility] 10 mls/hr 10 MG/HR Infusion Heparin Sodium/Dextrose 25,000 units in 250 mls @ 17 mls/hr 08/02/25 08:20 08/02/25 08:35 Heparin Sodium/D5w 100 Units/Ml IV CONT 1,900 units/hr .[id number] [facility] 19 mls/hr Protocol Administration 1,700 UNITS/HR Losartan Potassium 25 mg 08/01/25 14:50 08/02/25 08:41 Losartan Potassium 25 Mg Tablet PO 25 mg DAILY [facility] Administration Nitroglycerin 0.4 mg 08/01/25 14:48 Nitroglycerin Sl 0.4 Mg Tablet SUBLINGUAL Q5M PRN Chest Pain Pantoprazole Sodium 40 mg 08/02/25 09:00 08/02/25 08:40 Pantoprazole 40 Mg Tablet PO 40 mg DAILY [facility] Administration Perflutren Lipid Microsphere 0 ml 08/01/25 14:48 Perflutren Lipid Microspheres 1.5 Ml Vial Diluted To 10 Ml Total Volume IV PUSH 08/04/25 14:49 ONCE PRN adequate visualization Protocol Rosuvastatin Calcium 20 mg 08/02/25 09:00 08/02/25 08:41 Rosuvastatin 20 Mg Tablet PO 20 mg DAILY [facility] Administration Radiology Results: ITS Impressions Chest X-Ray 07/31/25 19:38 IMPRESSION: No acute pulmonary findings. Chest CTA 07/31/25 21:04 IMPRESSION: There is no pulmonary embolism, aortic dissection, pericardial fluid or thoracic aneurysm. No acute lung findings. All CT scans at this facility are performed using low dose modulation techniques as appropriate to perform exam including the following: automated exposure control; use of iterative reconstruction technique; adjustment of the mA and/or kV according to patient size (this includes techniques or standardized protocols for targeted exams where dose is matched to indication/reason for exam). Labs 08/02/25 06:53 08/02/25 06:53 Labs: Laboratory Results - last 24 hr 08/01/25 08/02/25 23:29 06:53 WBC 11.6 H RBC 5.01 Hgb 15.7 Hct 47.0 MCV 93.8 MCH 31.3 MCHC 33.4 RDW 12.2 Plt Count 301 MPV 9.6 Immature Gran % (Auto) 0.5 Neut % (Auto) 62.7 Lymph % (Auto) 24.0 [place] % (Auto) 8.5 Eos % (Auto) 3.4 Baso % (Auto) 0.9 Lymph # (Auto) 2.79 [place] # (Auto) 1.0 H Eos # (Auto) 0.4 H Baso # (Auto) 0.1 Abs Immat Gran (auto) 0.06 H Absolute Neuts (auto) 7.3 H Absolute Nucleated RBC 0.000 Nucleated RBC % 0.0 APTT 66.6 H 63.6 H Sodium 134 L Potassium 3.9 Chloride 102 Carbon Dioxide 26 Anion Gap 6 BUN 10 D Creatinine 0.89 Estim Creat Clear Calc 97 Estimated GFR > 60 Glucose 119 H Calcium 8.6 TSH (Reflex) 2.400 ASA Classification/Sedation ASA Classification/Sedation ASA Class: III Emergent: No Risks: Risks, benefits and alternatives explained and patient/family accepted plan for sedation. Patient re-evaluated immediately prior to sedation.
--- NOTE | 2025-08-02 11:57 | WPDCARDPROC ---
Cardiac Cath Procedure Note Date of procedure:: 08/02/25 Performing physician:: Hans Read MD Procedure Procedure note:: CARDIAC CATHETERIZATION AND PERCUTANEOUS CORONARY INTERVENTION REPORT DATE OF PROCEDURE: 08/02/2025 INDICATION FOR PROCEDURE: Atrial flutter with RVR, significant troponin elevation BRIEF CLINICAL HISTORY: 65-year-old male with hypertension, paroxysmal atrial fibrillation with history of radiofrequency ablation treatment, dyslipidemia obesity, GIBRAN. Patient presented to [facility] Emergency Room on 08/01/2025 with complaints of palpitations and chest discomfort. He was found to be in atrial flutter with RVR, ventricular rate about 150 beats per minute. He was initiated on diltiazem IV for rate control, and anticoagulation with unfractionated heparin. Patient's troponins were significantly elevated with current peak troponin level of 11.6. He was referred for cardiac catheterization to rule out significant obstructive CAD. Benefits and risks of the procedure were discussed with the patient in depth, and informed consent was obtained prior to the procedure. Risks of the procedure include but are not limited to vascular complications including groin hematoma, retroperitoneal bleed, vessel perforation; periprocedural NC, cardiac arrhythmias, stroke, contrast induced nephropathy, and . After discussing all the benefits, risks and alternatives, patient was willing to proceed with the procedure. PROCEDURES PERFORMED: 1. Left heart catheterization- Selective left and right coronary angiogram; left ventriculogram and hemodynamic assessment 2. Percutaneous coronary intervention-IFR of proximal-mid RCA 3. Moderate sedation-CPT code 21005 and beyond MODERATE SEDATION: Midazolam 4 mg; fentanyl 50 mcg. Start time 1102 , Stop time 1148 ; Total dalp-ww-[id number] time 46 minutes; Manuel Mayes RN was trained observer for moderate sedation. ACCESS SITE: Right radial artery PROCEDURE NOTE: After obtaining informed consent, patient was brought to catheterization lab and prepped and draped in a usual sterile manner. After local anesthesia with lidocaine, right radial artery access was taken with micropuncture needle followed by insertion of a 6 Gabonese sheath. Patient received 2.5 mg of verapamil, 200 mcg of nitroglycerin through the arterial sheath. He was given bivalirudin for procedure anticoagulation as described below. Selective left and right coronary angiogram was performed using 5 Gabonese JL3.5 and JR4 catheters respectively. Orthogonal views were taken. Next, a 5 Gabonese pigtail catheter was advanced in the LV cavity and was flushed with normal saline. LV pressure measurement was performed. After this, left ventriculogram was performed. The catheter was flushed again, and gradient across the aortic valve was measured on the pullback of the catheter. After completion of procedure including IFR, radial band was applied for good hemostasis. The procedure was challenging as patient constantly moved on the table during the procedure despite adequate sedation. There were no immediate procedure related complications. FINDINGS: LEFT MAIN CORONARY: Medium caliber vessel, no significant stenosis. LEFT ANTERIOR DESCENDING ARTERY: Medium caliber, tortuous vessel, tapers distally and reaches the apex. There are minor irregularities in the mid segment. No segment focal stenosis. Diagonal branches are smaller caliber tortuous vessels. LEFT CIRCUMFLEX ARTERY: Medium caliber vessel with mild plaque in the mid segment; gives rise to medium caliber OM branch without significant stenosis. RIGHT CORONARY ARTERY: RCA is a large caliber, tortuous dominant vessel. Vessel gives rise to medium caliber PDA and PLV branches. There is about 40-60% focal stenosis in the lower part of the proximal segment. LEFT VENTRICULOGRAM: Variable LV contractility due to atrial fibrillation; overall LV systolic function is preserved with ejection fraction about 60%. LVEDP 14 mmHg. HEMODYNAMIC ASSESSMENT: Opening pressure 102/82 mmHg, closing pressure 99/69 mmHg, LVEDP 14 mmHg; no significant gradient across aortic valve on the pullback of pigtail catheter. INTERVENTION REPORT: Patient's coronary angiogram showed intermediate degree stenosis in the proximal mid segment of right coronary artery. Given patient's significant troponin elevation, we proceeded with the functional assessment of the RCA stenosis. Bivalirudin was used for pressure anticoagulation. RCA was selectively engaged using 6 Gabonese 3DRC guide catheter. A [employer] Omni wire was zeroed outside the body, was introduced in the proximal RCA and normalized after flushing the catheter. The stenosis was crossed with some difficulty as patient was constantly moving during the procedure. The wire was advanced to the distal RCA. IFR was measured at 0.98, 0.97, 0.98 on 3 successive measurements. Based on this, the stenosis in the proximal-mid RCA was not deemed to be functional significant. Final angiogram showed preserved flow in the RCA after removal of the wire. Radial band was applied for local hemostasis. As described above, the procedure was technically changing as patient kept on moving throughout the procedure. There were no immediate procedure related complications. CONCLUSIONS: 1. CAD- a) About 40-60% stenosis proximal RCA (IFR 0.97) b) Minor plaque in mid LAD and LCX/OM. 2. Preserved LV systolic function, ejection fraction about 60%; variable LV contractility due to atrial flutter. 3. Atrial flutter with RVR PLAN/RECOMMENDATIONS: 1. Patient can be managed with medical treatment for nonobstructive CAD including statin. Continue outpatient surveillance for progression of CAD. 2. Rate control and anticoagulation for atrial flutter. Electrophysiology evaluation as an outpatient for rhythm management. 3. Risk factor modification. This document was completed by using [employer] speech recognition software, therefore, embossing machine operator helper variances may occur.
[2025-08-02] MEDS: SODIUM CHLORIDE 0.9% IV 1,000 ML 125 ML IV CONT (13:07)
[2025-08-02] MEDS: PERFLUTREN LIPID MICROSPHERES 1.5 ML VIAL DILUTED TO 10 ML TOTAL VOLUME IV PUSH (13:45)
--- NOTE | 2025-08-02 14:26 | IVDEFINITY ---
Prior to administration of IV Definity the patient was educated on the risks and benefits of the imaging enhancing agent including potential adverse side effects. The patient verbalized understanding. Allergies were verified. No exclusion criteria were identified and at least one of the following inclusion criteria were met: 1) physician request, 2) patient technically difficult to image (per the [place] [employer] guidelines of two or more segments not discernable within the apical view), or 3) questionable left ventricular function. ?
--- NOTE | 2025-08-02 15:12 | ECG_ITS ---
Test Date: 2025-08-02 15:24:12 Measurements Intervals [place] Rate: 61 P: 40 [place]: 151 QRS: -29 QRSD: 116 T: 19 QT: 446 QTc: 450 Interpretive Statements SINUS RHYTHM POSSIBLE LEFT ATRIAL ENLARGEMENT INFERIOR INFARCT, AGE INDETERMINATE ABNORMAL ECG Compared to ECG 08/01/2025 15:05:04 ATRIAL FLUTTER NO LONGER PRESENT Electronically Signed On 08-02-2025 15:38:12 CDT by Luca Mcgowan D.O.
[2025-08-02] MEDS: GABAPENTIN 400 MG CAPSULE 800 MG PO (20:22)
[2025-08-03] VITALS (10 sets, daily range): BP systolic 135–145; BP diastolic 51–86; PULSE 54–93; RESP 18–20; TEMP 36.3–36.7; O2SAT 93–99
[2025-08-03 04:04] LABS: Hematocrit 40.6 % (42.0-52.0); Hemoglobin 13.2 g/dL (14.0-18.0); Mean Corpuscular HGB Conc 32.5 g/dl (32-36); Mean Corpuscular Hemoglobin 31.0 pg (26-34); Mean Corpuscular Volume 95.3 fl (80-100); Platelet Count Result 240 k/mm3 (150-375); Red Blood Count 4.26 M/mm3 (4.6-6.20); White Blood Count 12.5 K/mm3 (4.5-10.0)
[2025-08-03 04:18] LABS: Alanine Aminotransferase 32 U/L (6-50); Albumin Level 3.5 g/dL (3.5-5.1); Alkaline Phosphatase 72 U/L (38-126); Anion Gap 4 mmol/L (4-12); Aspartate Amino Transferase 42 U/L (17-59); Bilirubin,Total 0.2 mg/dL (0.2-1.3); Blood Urea Nitrogen 12 mg/dL (9-20); Calcium 8.3 mg/dL (8.4-10.2); Carbon Dioxide 28 mmol/L (22-30); Chloride 104 mmol/L (98-107); Estimated CRCL calculation 109 ml/min; Estimated Glomerular Filt Rate > 60; Glucose 125 mg/dL (65-110); Potassium 3.7 mmol/L (3.4-5.0); Sodium 136 mmol/L (137-145); Total Protein 6.0 g/dL (6.3-8.2)
[2025-08-03] MEDS: LOSARTAN POTASSIUM 25 MG TABLET PO (09:01)
[2025-08-03] MEDS: PANTOPRAZOLE 40 MG TABLET PO (09:01)
[2025-08-03] MEDS: APIXABAN 5 MG TABLET PO (09:01)
[2025-08-03] MEDS: ROSUVASTATIN 20 MG TABLET PO (09:01)
--- NOTE | 2025-08-03 11:29 | P.PNCA_ITS ---
Progress Note: A&P Assessment and Plan (1) Atrial fibrillation with RVR: Code(s): I48.91 - Unspecified atrial fibrillation Status: Acute (2) NSTEMI (non-ST elevated myocardial infarction): Code(s): I21.4 - Non-ST elevation (NSTEMI) myocardial infarction Status: Acute (3) Essential (primary) hypertension: Code(s): I10 - Essential (primary) hypertension Status: Chronic (4) Hyperlipidemia: Qualifiers: Hyperlipidemia type: unspecified Qualified Code(s): E78.5 - Hyperlipidemia, unspecified Code(s): E78.5 - Hyperlipidemia, unspecified Status: Chronic (5) Morbid obesity with BMI of 40.0-44.9, adult: Code(s): E66.01 - Morbid (severe) obesity due to excess calories; Z68.41 - Body mass index [BMI] 40.0-44.9, adult Status: Acute Plan NSTEMI/chest pain-Patient presents with chest pain, dizziness and near syncope. Initial troponin of 2.87, current troponin of 11.6. EKG on admission atrial flutter with RVR, but no acute ST/T wave changes. CTA chest negative for PE and CXR with no acute cardiopulmonary process. Troponin elevation is not consistent with demand ischemia secondary to atrial flutter. Given chest pain, continued rise in troponin and risk factors for CAD will plan for [facility] today. Patient remains on heparin drip at this time. Echo is ordered to look for any LV dysfunction or wall motion abnormality. Risk/benefits of procedure discussed with patient and his . They are agreeable and understanding is verbalized. Atrial flutter/fibrillation-has previous history of afib back in 2022. Reports cardioversion at that time and was on Eliquis. No issue since then and is no longer on Eliquis. He was noted on admission to be in atrial flutter rates in the 150s. He spontaneously converted to sinus rhythm yesterday. Continue diltiazem-shift to long-acting diltiazem on discharge for dosing convenience. Continue Eliquis 5 mg q.12 hours ([id number]). Hypertension. With elevated BP on admission. Home losartan and restarted, blood pressure remains above goal. Increase losartan to 50 mg daily. Hyperlipidemia. On crestor 20 mg daily at home. Continue. History of GIBRAN. No longer wearing CPAP since his 40lb weight loss. Recommend repeat sleep study as he still has symptoms of sleep apnea. Obesity. Continued weight loss encouraged Family history of CAD. Father with CABG in his 60s. Stable for discharge today from cardiology standpoint. Will arrange for close follow-up in our office. Subjective Date/time seen: 08/03/25 11:29 Interval history: Cardiology follow-up visit Date of service 08/03/2025: Patient is feeling well this morning and does not have any active complaints. He converted to sinus rhythm yesterday and remains in sinus rhythm now. He denies any chest pain, shortness of breath, palpitations. He is eager to go home. Review of Systems Review of Systems: All systems reviewed & are unremarkable except as noted in HPI and below Exam Const: General: no acute distress Orientation/consciousness: patient oriented x3 HENMT: Head: normal to inspection Eyes: General: appearance normal, both eyes and all related structures Pupils: Equal, round and reactive pupils present Neck: Neck: No no JVD Thyroid: thyroid normal Carotids: no bruits Resp: Effort & Inspection: normal respiratory effort Auscultation: clear to auscultation bilaterally Cardio: Rate: regular rate Rhythm: regular rhythm Heart sounds: no murmurs and no rubs GI: Auscultation: normal bowel sounds Skin: General skin exam: normal color and no erythema Wounds: wound noted Other: Right radial arterial access site open to air. No hematoma. Neuro: General: patient oriented x3 Cranial nerves: Yes Equal, round and reactive pupils present Speech: normal speech Extrem: General: no edema Psych: Appearance: grossly normal Mental Status: mental status grossly normal Objective Data Vital Signs Vital Signs: Vital Signs - 24 hr 08/02/25 12:00 08/02/25 12:15 08/02/25 12:30 Temperature Pulse Rate 116 H 116 H Pulse Rate [Right Radial Palpation] 126 H Respiratory Rate 15 Blood Pressure 132/86 132/86 Pulse Oximetry 95 Oxygen Delivery Room Air Fraction of Inspired Oxygen 08/02/25 12:30 08/02/25 12:45 08/02/25 12:45 Temperature Pulse Rate 126 H 92 Pulse Rate [Right Radial Palpation] 92 Respiratory Rate 19 14 Blood Pressure 129/94 H 139/93 H Pulse Oximetry 97 96 Oxygen Delivery Room Air Room Air Fraction of Inspired Oxygen 10/22/25 13:00 08/02/25 13:00 08/02/25 13:15 Temperature Pulse Rate 86 Pulse Rate [Right Radial Palpation] 86 87 Respiratory Rate 18 Blood Pressure 137/96 H Pulse Oximetry 94 Oxygen Delivery Room Air Fraction of Inspired Oxygen 08/02/25 13:15 08/02/25 13:30 08/02/25 13:30 Temperature Pulse Rate 87 87 Pulse Rate [Right Radial Palpation] 87 Respiratory Rate 15 13 Blood Pressure 135/105 H 110/75 Pulse Oximetry 95 95 Oxygen Delivery Room Air Room Air Fraction of Inspired Oxygen 08/02/25 13:45 08/02/25 13:45 08/02/25 14:00 Temperature Pulse Rate 90 63 Pulse Rate [Right Radial Palpation] 90 Respiratory Rate 17 22 H Blood Pressure 122/85 109/81 Pulse Oximetry 96 97 Oxygen Delivery Room Air Room Air Fraction of Inspired Oxygen 08/02/25 14:00 08/02/25 14:00 08/02/25 14:15 Temperature Pulse Rate 63 Pulse Rate [Right Radial Palpation] 63 60 Respiratory Rate Blood Pressure 109/63 Pulse Oximetry Oxygen Delivery Fraction of Inspired Oxygen 08/02/25 14:15 08/02/25 14:30 08/02/25 14:30 Temperature Pulse Rate 60 69 Pulse Rate [Right Radial Palpation] 69 Respiratory Rate 22 H 15 Blood Pressure 126/82 130/78 Pulse Oximetry 95 96 Oxygen Delivery Room Air Room Air Fraction of Inspired Oxygen 08/02/25 14:45 08/02/25 14:45 08/02/25 15:00 Temperature Pulse Rate 68 Pulse Rate [Right Radial Palpation] 68 70 Respiratory Rate 18 Blood Pressure 145/83 H Pulse Oximetry 97 Oxygen Delivery Room Air Fraction of Inspired Oxygen 08/02/25 15:00 08/02/25 15:15 08/02/25 15:15 Temperature Pulse Rate 70 63 Pulse Rate [Right Radial Palpation] 63 Respiratory Rate 18 20 Blood Pressure 130/90 144/93 H Pulse Oximetry 96 95 Oxygen Delivery Room Air Room Air Fraction of Inspired Oxygen 08/02/25 15:30 08/02/25 15:30 08/02/25 15:45 Temperature Pulse Rate 69 Pulse Rate [Right Radial Palpation] 69 63 Respiratory Rate 18 Blood Pressure 133/85 Pulse Oximetry 94 Oxygen Delivery Room Air Fraction of Inspired Oxygen 08/02/25 15:45 08/02/25 15:58 08/02/25 16:00 Temperature Pulse Rate 63 66 Pulse Rate [Right Radial Palpation] 64 Respiratory Rate 16 Blood Pressure 135/76 142/66 H Pulse Oximetry 95 Oxygen Delivery Room Air Fraction of Inspired Oxygen 08/02/25 16:00 08/02/25 16:15 08/02/25 17:15 Temperature 36.9 C 36.6 C Pulse Rate 69 66 66 Pulse Rate [Right Radial Palpation] Respiratory Rate 18 20 Blood Pressure 142/99 H 142/78 H Pulse Oximetry 99 100 Oxygen Delivery Fraction of Inspired Oxygen 08/02/25 18:00 08/02/25 18:00 08/02/25 19:40 Temperature 36.6 C 36.6 C Pulse Rate 68 64 70 Pulse Rate [Right Radial Palpation] Respiratory Rate 16 18 Blood Pressure 151/89 H 151/86 H Pulse Oximetry 97 94 Oxygen Delivery Fraction of Inspired Oxygen 08/02/25 20:00 08/02/25 20:00 08/02/25 21:50 Temperature Pulse Rate 65 65 62 Pulse Rate [Right Radial Palpation] Respiratory Rate 18 Blood Pressure Pulse Oximetry 94 Oxygen Delivery Room Air Fraction of Inspired Oxygen 21 08/03/25 00:00 08/03/25 00:00 08/03/25 00:19 Temperature 36.6 C Pulse Rate 72 72 75 Pulse Rate [Right Radial Palpation] Respiratory Rate 18 18 Blood Pressure 145/76 H Pulse Oximetry 94 95 Oxygen Delivery Room Air Fraction of Inspired Oxygen 21 08/03/25 02:00 08/03/25 03:55 08/03/25 04:00 Temperature 36.7 C Pulse Rate 68 77 78 Pulse Rate [Right Radial Palpation] Respiratory Rate 20 20 Blood Pressure 135/86 Pulse Oximetry 93 93 Oxygen Delivery Room Air Fraction of Inspired Oxygen 21 08/03/25 04:00 08/03/25 06:00 08/03/25 07:42 Temperature Pulse Rate 78 64 78 Pulse Rate [Right Radial Palpation] Respiratory Rate 20 Blood Pressure Pulse Oximetry 93 Oxygen Delivery Room Air Fraction of Inspired Oxygen 21 08/03/25 08:00 Temperature 36.3 C L Pulse Rate 75 Pulse Rate [Right Radial Palpation] Respiratory Rate 18 Blood Pressure 141/51 H Pulse Oximetry 99 Oxygen Delivery Fraction of Inspired Oxygen Intake/Output Intake/Output: Intake & Output 07/31/25 08/01/25 08/02/25 08/03/25 23:59 23:59 23:59 23:59 Intake Total 16.1 580.9 1026.0 1684 Balance 16.1 580.9 1026.0 1684 Meds/Results Medications: Active Medications Generic Name Dose Route Start Last Admin Trade Name Freq PRN Reason Stop Dose Admin Apixaban 5 mg 08/03/25 09:00 08/03/25 09:01 Apixaban 5 Mg Tablet PO 5 mg Q12HR ALLAN Administration Diltiazem HCl 60 mg 08/02/25 15:40 08/03/25 05:50 Diltiazem Hcl 60 Mg Tablet PO 60 mg Q6HR ALLAN Administration Gabapentin 800 mg 08/01/25 21:59 08/02/25 20:22 Gabapentin 400 Mg Capsule PO 800 mg QHS PRN Administration Insomnia Losartan Potassium 25 mg 08/01/25 14:50 08/03/25 09:01 Losartan Potassium 25 Mg Tablet PO 25 mg DAILY ALLAN Administration Nitroglycerin 0.4 mg 08/01/25 14:48 Nitroglycerin Sl 0.4 Mg Tablet SUBLINGUAL Q5M PRN Chest Pain Pantoprazole Sodium 40 mg 08/02/25 09:00 08/03/25 09:01 Pantoprazole 40 Mg Tablet PO 40 mg DAILY ALLAN Administration Rosuvastatin Calcium 20 mg 08/02/25 09:00 08/03/25 09:01 Rosuvastatin 20 Mg Tablet PO 20 mg DAILY ALLAN Administration Radiology Results: ITS Impressions Chest X-Ray 07/31/25 19:38 IMPRESSION: No acute pulmonary findings. Chest CTA 07/31/25 21:04 IMPRESSION: There is no pulmonary embolism, aortic dissection, pericardial fluid or thoracic aneurysm. No acute lung findings. All CT scans at this facility are performed using low dose modulation techniques as appropriate to perform exam including the following: automated ex posure control; use of iterative reconstruction technique; adjustment of the mA and/or kV according to patient size (this includes techniques or standardized protocols for targeted exams where dose is matched to indication/reason for exam). Labs Labs: Laboratory Results - last 24 hr 08/03/25 03:46 WBC 12.5 H RBC 4.26 L Hgb 13.2 L Hct 40.6 L MCV 95.3 MCH 31.0 MCHC 32.5 RDW 12.3 Plt Count 240 MPV 9.7 Sodium 136 L Potassium 3.7 Chloride 104 Carbon Dioxide 28 Anion Gap 4 BUN 12 Creatinine 0.80 Estim Creat Clear Calc 109 Estimated GFR > 60 Glucose 125 H Calcium 8.3 L Total Bilirubin 0.2 AST 42 ALT 32 Alkaline Phosphatase 72 Total Protein 6.0 L Albumin 3.5 Quality VTE Prophylaxis VTE prophylaxis: pharmacologic ordered
--- NOTE | 2025-08-03 12:13 | PM.DS ---
DS: Admitting Diagnosis Discharge Date 08/03/25 Admitting Diagnosis Chest pain DS: Discharge Diagnosis Discharge Diagnosis (1) Essential (primary) hypertension: Code(s): I10 - Essential (primary) hypertension Status: Chronic (2) Chest pain: Code(s): R07.9 - Chest pain, unspecified Status: Acute (3) NSTEMI (non-ST elevated myocardial infarction): Code(s): I21.4 - Non-ST elevation (NSTEMI) myocardial infarction Status: Acute (4) Atrial flutter: Qualifiers: Atrial flutter type: unspecified Qualified Code(s): I48.92 - Unspecified atrial flutter Code(s): I48.92 - Unspecified atrial flutter Status: Acute (5) Atrial fibrillation with RVR: Code(s): I48.91 - Unspecified atrial fibrillation Status: Acute DS: Summary Hospital Course Reason for hospitalization: Chest pain Hospital Course: 65 y/o M with PMH of HLD, atrial flutter/atrial fibrillation (previously cardioverted x1), GIBRAN on CPAP, and hypertension presented with lightheadedness, chest pain. CT chest PE protocol was negative for PE, pericardial fluid, thoracic aneurysm. Was found to be in atrial flutter with RVR. Given elevated troponin there was concern for NSTEMI. Underwent left heart catheterization by Cardiology which showed about 40-60% stenosis of proximal RCA, minor plaque in mid else 80 and LCX/OM, preserved LV function with the EF about 60%. Initially was treated with Cardizem drip, heparin drip. Has been started on Eliquis, oral Cardizem. Patient will follow-up with cardiology as an outpatient. Patient is being discharged home in stable condition. Status at Discharge Functional status at discharge: independent ambulation Overall status at discharge: patient is back to baseline Time Spent with Patient Time attestation: Total time spent providing and/or coordinating discharge services: Exam Const: General: comfortable HENMT: Mouth: Yes moist mucous membranes Eyes: General: appearance normal, both eyes and all related structures Neck: Neck: supple Resp: Effort & Inspection: normal respiratory effort Auscultation: clear to auscultation bilaterally Cardio: Rate: regular rate Rhythm: regular rhythm GI: GI Palp: Yes Soft to palpation Auscultation: normal bowel sounds Skin: General skin exam: normal color Neuro: Sensory Exam: normal sensation Extrem: General: normal to inspection Psych: Mental Status: mental status grossly normal DS: Data Data Completed and Pending Labs on day of discharge: Labs from last 24 hours 08/03/25 03:46 WBC 12.5 H RBC 4.26 L Hgb 13.2 L Hct 40.6 L MCV 95.3 MCH 31.0 MCHC 32.5 RDW 12.3 Plt Count 240 MPV 9.7 Sodium 136 L Potassium 3.7 Chloride 104 Carbon Dioxide 28 Anion Gap 4 BUN 12 Creatinine 0.80 Estim Creat Clear Calc 109 Estimated GFR > 60 Glucose 125 H Calcium 8.3 L Total Bilirubin 0.2 AST 42 ALT 32 Alkaline Phosphatase 72 Total Protein 6.0 L Albumin 3.5 Discharge Plan Discharge Attending physician on discharge: Marlene Wolfe Consulting providers: Hans Read Discharging Clinician: Marlene Wolfe Anticipated Discharge Date/Time: 08/03/25 12:11 Patient Disposition: Home Activity: as tolerated Diet: heart healthy Patient Instructions: Antibiotic Form Patient Language: Russian Stand Alone Forms: General Discharge Information Follow-up/Referrals: Airam Crabtree APN-C [Advanced Practice Nurse, Cardiology] Discharge Medications: New Eliquis 5 mg Tablet 5 mg PO Q12HR Qty: 60 2RF diltiazem HCl [DILT-XR] 240 mg capsule,ext.rel 24h degradable 240 mg PO DAILY Qty: 30 11RF Continued gabapentin 800 mg tablet 800 mg PO QHS PRN (Reason: sleep) (DME) CPAP Pressure Settings See Rx Instructions .Route .MEDSUPPLY Qty: 1 0RF Rx Instructions: Rx: Change pressure to BPAP 14/10 cm H2O Dx: G47.33 DME: IV & Resp Care Physician: Dr. Amelie Leroy DO rosuvastatin 20 mg tablet 20 mg PO DAILY Qty: 90 1RF pantoprazole 40 mg tablet,delayed release (DR/EC) 40 mg PO DAILY Qty: 90 0RF Rx Instructions: NEEDS APPOINTMENT FOR FURTHER REFILLS Zepbound 10 mg/0.5 mL solution 10 mg subcut WEEKLY Qty: 2 0RF Changed losartan 25 mg tablet 50 mg PO DAILY Qty: 90 0RF Rx Instructions: NEEDS APPOINTMENT FOR FURTHER REFILLS Date of admission: 08/01/25 14:57 Primary Care Provider: Amelie Leroy Admitting Provider: Sheryl Kasper Attending physician on admission: Sheryl Kasper Condition: Serious
== END 2025-08-03 13:55 | disposition home or self-care (01) | DRG 287 ==
LOC: ANHED 08-01 13:30 → ANHIMU 08-01 15:46
PROVIDERS: Emergency Medicine; Internal Medicine Cardiovascular Disease; Nurse Practitioner; Student in an Organized Health Care Education/Training Program; Admitting Provider Internal Medicine; Emergency Provider Physician Assistant; PCP Family Medicine; Visit Provider Internal Medicine
PROC: 4A023N7 Measurement of Cardiac Sampling and Pressure, Left Heart, Percutaneous Approach (ICD-10-PCS; CPT 93452; principal; 2025-08-02 10:30)
PROC: 4A033BC Measurement of Arterial Pressure, Coronary, Percutaneous Approach (ICD-10-PCS; CPT 93571; 2025-08-02 10:30)
DX: I25.10 Atherosclerotic heart disease of native coronary artery without angina pectoris (principal); Z68.41 Body mass index [BMI] 40.0-44.9, adult; E78.5 Hyperlipidemia, unspecified; I48.0 Paroxysmal atrial fibrillation; E66.01 Morbid (severe) obesity due to excess calories; F10.90 Alcohol use, unspecified, uncomplicated; G47.33 Obstructive sleep apnea (adult) (pediatric); I10 Essential (primary) hypertension; R79.89 Other specified abnormal findings of blood chemistry; E87.6 Hypokalemia; Z77.22 Contact with and (suspected) exposure to environmental tobacco smoke (acute) (chronic); Z99.89 Dependence on other enabling machines and devices; Z87.19 Personal history of other diseases of the digestive system; Z80.0 Family history of malignant neoplasm of digestive organs; Z82.49 Family history of ischemic heart disease and other diseases of the circulatory system; Z86.79 Personal history of other diseases of the circulatory system
CPT/HCPCS: 36415; 71045; 71275; 80048; 80053; 83690; 83735; 84443; 84484; 85025; 85027; 85380; 85610; 85730; 93005; 93458; 93571; 96365; 96366; 96372; 99285; A9270; C1769; C1887; C1894; C8929; J0583; J1163; J1644; J1650; J2003; J2250; J2305; J3010; J7030; J7040; Q9957; Q9967